=== PATIENT | female | born 1985 | race Caucasian/White ===

== ENCOUNTER 2017-08-25 13:07 | Emergency (ER) | payer OTHER ==
[2017-08-25 13:18] VITALS: TEMP 98.7
[2017-08-25] MEDS ORDERED: LORazepam 2 MG/ML INJ IV STA (13:19)
[2017-08-25 13:38] LABS: Basophils # (A) 0.1 k/uL (0-0.2); Basophils % (A) 1 %; CH 30.1; CHCM 32.8; Eosinophils # (A) 0.2 k/uL (0-0.7); Eosinophils % (A) 2 %; HCT 41.6 % (34.0-46.0); HDW 3.03; HGB 13.3 gm/dL (11.4-16.0); Luc # (Auto) 0.23; Luc % (Auto) 3; Lymphocytes # (A) 4.5 k/uL (1.0-4.8); Lymphocytes % (A) 47 %; MCH 29.4 pg (25.0-35.0); MCHC 31.8 g/dL (31.0-37.0); MCV 92.5 fL (80.0-100.0); Mean Platelet Volume 6.7; Monocytes # (A) 0.5 k/uL (0-1.0); Monocytes % (A) 5 %; Neutrophils # (A) 4.1 k/uL (1.3-7.7); Neutrophils % (A) 43 %; RDW 12.8 % (11.5-15.5); WBC 9.5 k/uL (3.8-10.6); WBC (Perox) 8.84
--- NOTE | 2017-08-25 13:49 | CT ---
EXAMINATION TYPE: CT brain cspine wo con DATE OF EXAM: 08/25/2017 COMPARISON: CT brain and cervical spine July 01, 2014 HISTORY: Seizure and fell injury with headache and neck pain CT DLP: 1451.2 mGycm. Automated Exposure Control for Dose Reduction was Utilized. TECHNIQUE: CT scan of the head and cervical spine are performed without contrast. FINDINGS: There is no acute intracranial hemorrhage, mass effect, or midline shift identified. The ventricles and sulci are within normal limits in size. El-white matter differentiation is maintain ed. The globes are intact and the visualized sinuses are clear. The calvarium is intact. Cervical spine is visualized in its entirety from C1 through upper thoracic levels and demonstrates s atisfactory alignment without evidence of acute fracture or dislocation. Prevertebral soft tissue ap pears within normal limits. The C1-C2 articulation is within normal limits on the coronal images. V ertebral body heights and disc space heights are maintained. Spinal canal is preserved. No significan t spurring is seen. Axial images are grossly unremarkable. Thyroid gland is felt within normal limits . Lung apices are clear. IMPRESSION: 1. There is no acute fracture or dislocation evident in the cervical spine. 2. No acute intracranial hemorrhage, mass effect, or midline shift is seen. No significant change from prior.
[2017-08-25 13:50] LABS: ALT 24 U/L (9-52); AST 22 U/L (14-36); Alkaline Phosphatase 55 U/L (38-126); Anion Gap 19 mmol/L; Blood Urea Nitrogen 10 mg/dL (7-17); Calcium 10.1 mg/dL (8.4-10.2); Carbon Dioxide 21 mmol/L (22-30); Chloride 104 mmol/L (98-107); Glucose 76 mg/dL (74-99); Non-African American GFR(MDRD) >60 (>60 ml/min/1.73 sqM); Potassium 4.1 mmol/L (3.5-5.1); Sodium 144 mmol/L (137-145); Total Bilirubin 0.3 mg/dL (0.2-1.3); Total Protein 7.5 g/dL (6.3-8.2)
[2017-08-25] MEDS ORDERED: HYDROmorphone 1 MG/ML 1 ML SYRINGE IVP STA ×2 (13:50→15:03)
--- NOTE | 2017-08-25 13:50 | ED ---
General Adult HPI - General Chief complaint: Seizure Stated complaint: SEIZURE Time Seen by Provider: 08/25/17 13:18 Source: patient, family, RN notes reviewed, old records reviewed Mode of arrival: ambulatory Limitations: no limitations - History of Present Illness Initial comments: Chief complaint and history of present illness a 32-year-old female with a history of seizures had a seizure while in the emergency room holding her child who was being seen for a medical problem. The patient's mother is also here. She states the last time show full seizure was 3 years ago. Otherwise other seizures have been more blank stares. The patient takes Lamictal. She is also on Xanax which she ran out of or 24 hours ago has not been able to get a refill because of the holiday. She suffers from posterior chronic stress disorder and often times, per mother, stress will induce a seizure. Patient had a tonic- clonic type seizure lasted less than 20 seconds which did fall backwards bumping her head on the wall. Patient had approximately 10 minutes post ictal episode. - Related Data Home Medications Medication Instructions Recorded Confirmed Propranolol [Inderal] 10 mg PO DAILY 02/21/16 08/25/17 lamoTRIgine [LaMICtal] 100 mg PO DAILY 02/21/16 08/25/17 ALPRAZolam [Xanax] 1 mg PO BID 08/20/17 08/25/17 Cetirizine HCl [Zyrtec] 10 mg PO DAILY 08/20/17 08/25/17 Desvenlafaxine Succinate [Pristiq] 50 mg PO DAILY 08/20/17 08/25/17 Fluticasone Nasal [place] [Flonase 1 spr EA NOSTRIL DAILY PRN 08/20/17 08/25/17 Nasal [place]] Ibuprofen [Motrin] 600 mg PO Q8HR PRN 08/20/17 08/25/17 Pregabalin [Lyrica] 75 mg PO BID 08/20/17 08/25/17 Varenicline [Chantix] 1 mg PO BID 08/20/17 08/25/17 Hydrocodone/Acetaminophen [[place] 2 tab PO Q6HR PRN 08/25/17 08/25/17 5-325] Previous Rx's Medication Instructions Recorded ALPRAZolam [Xanax] 1 mg PO BID #8 tab 08/25/17 Allergies Allergy/AdvReac Type Severity Reaction Status Date / Time acetaminophen [From Fioricet] Allergy Unknown Verified 08/25/17 13:28 adhesive Allergy Rash, Verified 08/25/17 13:28 PEELS SKIN OFF AND BLEEDS aripiprazole [From Abilify] Allergy SUICIDAL Verified 08/25/17 13:28 THOUGHTS, CUT HERSELF butalbital [From Fioricet] Allergy Unknown Verified 08/25/17 13:28 caffeine [From Fioricet] Allergy Unknown Verified 08/25/17 13:28 Sulfa (Sulfonamide Allergy Anaphylaxis Verified 08/25/17 13:28 Antibiotics) topiramate [From Topamax] Allergy Hallucinati Verified 08/25/17 13:28 ons Review of Systems ROS Statement: Those systems with pertinent positive or pertinent negative responses have been documented in the HPI. Now that the patient is more alert she reports she does have some head neck discomfort. When she fell she had her left lower leg forced onto the stretcher this will be x-rayed. Patient's denying chest pain shortness breath GI/ problems. Patient states she took her seizure medication when she was supposed to last time last night. She has been out of her Xanax for 24 hours. When fully alert patient states that she's been having pain in her left shoulder because she straightened it out the other day. She been taking [place] without relief. She states that pain, anxiety and fatigue increases her chance for having seizures like she had today. Requesting pain medication via the IV. Patient states she's had more than 3 rotator cuff surgeries on the left side. As medical problems significant for asthma, PTSD, TIA, GERD, GI bleed, renal disease, seizure disorder, skin disorder, the patient's surgeries include orthopedic surgery, tonsillectomy her surgeries on her left shoulder been repeated several times for rotator cuff. Per grandmother multiple cancers in the family. She is currently on Chantix for the last several days down to 2 cigarettes per day. Denying alcohol use. ROS Other: All systems not noted in ROS Statement are negative. Past Medical History Past Medical History: Asthma, CVA/TIA, GERD/Reflux, GI Bleed, Renal Disease, Seizure Disorder, Skin Disorder Additional Past Medical History / Comment(s): "VOMITING BLOOD". HAS PTSD, PSYCHOSOMATIC SEIZURE DISORDER; OCC EPISODE OF INCR HR & BLOOD PRESSURE, PROB R/ T ANXIETY. 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 EDEMA ZHANG LEGS. History of Any Multi-Drug Resistant Organisms: None Reported Past Surgical History: Orthopedic Surgery, Tonsillectomy Additional Past Surgical History / Comment(s): RECONSTRUCTION LT SHOULDER X3. Past Anesthesia/Blood Transfusion Reactions: Motion Sickness Past Psychological History: ADD/ADHD, Anxiety, Depression, PTSD Smoking Status: Current every day smoker Past Alcohol Use History: None Reported Past Drug Use History: None Reported General Exam - General Exam Comments Initial Comments: General: I was called to the room for medical emergency room for a visitor. The mother was holding her child who is being treated. She had a seizure. Grandmother managed to catch the baby before she fell. [place] did bump her head. She had a short seizure. Nurse was immediately at bedside and assisted the patient initially turned slightly blue but then started breathing on her own. She was placed on a stretcher. And within 10 minutes of post ictal phase had subsided. She was questioned and does admit some discomfort to her head and neck. Vital signs temperature 98.7 pulse 102 respiratory rate 18 pulse ox on percent room air blood pressure 130/75. Eye: Pupils are equal, round and reactive to light, extra-ocular movements are intact ; there is normal conjunctiva bilaterally. No signs of icterus. Ears, nose, mouth and throat: There are moist mucous membranes and no oral lesions. Neck: Mild neck discomfort. But she is moving it. Cardiovascular: Pulse taken soon after the seizure it was 102. She does take Inderal for rapid heart rate.. No murmur, rub or gallop is appreciated. Respiratory: Lungs are clear to auscultation, respirations are non-labored, breath sounds are equal. No wheezes, stridor, rales, or rhonchi. Gastrointestinal: Soft, non-distended, non-tender abdomen without masses or organomegaly noted. There is no rebound or guarding present. No CVA tenderness. Bowel sounds are unremarkable. Back: There is no tenderness to palpation in the midline. There is no obvious deformity. No rashes noted. Musculoskeletal: Normal ROM, no tenderness, There is no pedal edema. There is no calf tenderness or swelling. Sensation intact. Pulses equal bilaterally 2+. Patient does have some bruising on her lateral lower left leg where when she fell and was pushed under the stretcher. She was standing at bedside of the time. Patient's been taking [place] because of left shoulder pain she's had multiple surgeries for rotator cuff pathology on the left shoulder. States she injured it several days ago at home. Requesting pain medication for that. Range of motion is decreased secondary to pain. No bruises noted. Neurological: CN II-XII intact, There are no obvious motor or sensory deficits. Coordination appears grossly intact. Speech is normal. Skin: Skin is warm and dry and no rashes or lesions are noted. Psychiatric: Patient has been under great deal of stress lately. She did run out of her Xanax. She has posttraumatic stress disorder. Limitations: no limitations Course Vital Signs 08/25/17 08/25/17 13:11 13:43 Temperature 98.7 F Pulse Rate 102 H Respiratory 18 Rate Blood Pressure 130/75 O2 Sat by Pulse 100 100 Oximetry EKG Findings - EKG Comments: EKG Findings:: EKG was done reviewed and 1311 showing normal sinus rhythm. No acute ST elevation no ectopy no ischemic changes. Rate 93 WA interval is 1:30 QRS [address] Arnold Medical Decision Making - Medical Decision Making Medical decision making; because the patient stiffened up collapsed backwards then had a seizure is unknown if the patient had a vasovagal syncopal episode followed by contact seizure. Has been 3 years since she had her last seizure ct of the brain and cervical spine. Was performed. Entire report was reviewed. Final impression is #1 there is no acute fracture dislocation evident in the cervical spine. 2 no acute intracranial hemorrhage, mass effect , or midline shift seen. No significant change from prior. As read by Dr. kessler Labs show white count 9.5 hemoglobin 13 hematocrit 41 with a potassium 4.1. BUN 10 creatinine 0.9 to GFR greater than 60. Glucose 76. Lamictal level pending. Is remains alert since the incident. She will be given a prescription for Xanax 1 mg twice a day to be taken as directed. She was following up with her family doctor and orthopedic surgeon because of the left shoulder pain. Advised return emergency room as needed. No driving for 6 months. - Lab Data Result diagrams: 08/25/17 13:12 08/25/17 13:12 Lab Results 08/25/17 08/25/17 Range/Units 13:12 13:12 WBC 9.5 (3.8-10.6) k/uL RBC 4.50 (3.80-5.40) m/uL Hgb 13.3 (11.4-16.0) gm/dL Hct 41.6 (34.0-46.0) % MCV 92.5 (80.0-100.0) fL MCH 29.4 (25.0-35.0) pg MCHC 31.8 (31.0-37.0) g/dL RDW 12.8 (11.5-15.5) % Plt Count 337 (150-450) k/uL Neutrophils % 43 % Lymphocytes % 47 % Monocytes % 5 % Eosinophils % 2 % Basophils % 1 % Neutrophils # 4.1 (1.3-7.7) k/uL Lymphocytes # 4.5 (1.0-4.8) k/uL Monocytes # 0.5 (0-1.0) k/uL Eosinophils # 0.2 (0-0.7) k/uL Basophils # 0.1 (0-0.2) k/uL Sodium 144 (137-145) mmol/L Potassium 4.1 (3.5-5.1) mmol/L Chloride 104 (98-107) mmol/L Carbon Dioxide 21 L (22-30) mmol/L Anion Gap 19 mmol/L BUN 10 (7-17) mg/dL Creatinine 0.92 (0.52-1.04) mg/dL Est GFR (MDRD) Af Amer >60 (>60 ml/min/1.73 sqM) Est GFR (MDRD) Non-Af >60 (>60 ml/min/1.73 sqM) Glucose 76 (74-99) mg/dL Calcium 10.1 (8.4-10.2) mg/dL Total Bilirubin 0.3 (0.2-1.3) mg/dL AST 22 (14-36) U/L ALT 24 (9-52) U/L Alkaline Phosphatase 55 (38-126) U/L Total Protein 7.5 (6.3-8.2) g/dL Albumin 4.4 (3.5-5.0) g/dL Disposition Clinical Impression: Generalized seizure Disposition: HOME SELF-CARE Condition: Fair Instructions: Recurrent Seizures in Adults (ED) Additional Instructions: Follow-up with your family doctor, and neurologist. No driving for 6 months provided used a 3 seizures during that time. Continue with her home medications. Prescriptions: ALPRAZolam [Xanax] 1 mg PO BID #8 tab Referrals: Marco Irby DO [Primary Care Provider] - 1-2 days Time of Disposition: 14:54
[2017-08-25 15:02] VITALS: BP 110/64; PULSE 76; RESP 17
== END 2017-08-25 15:23 | disposition home or self-care (01) ==
LOC: EC 13:07
DX: G40.409 Other generalized epilepsy and epileptic syndromes, not intractable, without status epilepticus (principal); F32.9 Major depressive disorder, single episode, unspecified; F41.9 Anxiety disorder, unspecified; F17.200 Nicotine dependence, unspecified, uncomplicated; Z86.73 Personal history of transient ischemic attack (TIA), and cerebral infarction without residual deficits; Z88.6 Allergy status to analgesic agent; Z91.048 Other nonmedicinal substance allergy status; Z88.2 Allergy status to sulfonamides; Z88.8 Allergy status to other drugs, medicaments and biological substances; Z79.899 Other long term (current) drug therapy
CPT/HCPCS: 36415; 93005; 80053; 80175; 85025; 72125; 70450; 99285; 96374; 96376; 96375; J2060; J1170

== ENCOUNTER 2017-09-16 19:50 | Emergency (ER) | payer OTHER ==
[2017-09-16 19:56] VITALS: BP 149/76; PULSE 91; RESP 18; TEMP 99.1
[2017-09-16] MEDS ORDERED: HYDROmorphone 2 MG/ML 1 ML SYRINGE IM STA (20:17)
--- NOTE | 2017-09-16 20:43 | XR ---
EXAMINATION TYPE: XR shoulder complete LT DATE OF EXAM: 09/16/2017 COMPARISON: 08/20/2017 HISTORY: Left shoulder pain TECHNIQUE: 3 views FINDINGS: There are 2 pins in the humeral head. I see no fracture nor dislocation. There is widening of the AC joint space and 8 mm of malalignment. IMPRESSION: There is evidence of tear of the AC ligament. No fracture seen. No significant change com pared to old exam.
--- NOTE | 2017-09-16 20:56 | ED ---
Upper Extremity HPI - General Chief Complaint: Extremity Injury, Upper Stated Complaint: shoulder problems Time Seen by Provider: 09/16/17 20:00 Source: patient Mode of arrival: wheelchair Limitations: no limitations - History of Present Illness Initial Comments: 32-year-old male patient presents to the emergency department today for complaints of left shoulder pain. Patient has a history of chronic shoulder pain with known ligament and tendon tears. Patient states that she was getting up from the toilet today when she felt something shift and the shoulder. She states that her pain worsens significantly at that time. She states it feels like it is out of place. She denies any numbness or tingling to the arm. States she has little strength but this is chronic. She denies any falls or other injury. She denies any neck or back pain. Patient denies any headache, neck pain, back pain, chest pain, shortness of breath, dizziness, weakness, abdominal pain, nausea, vomiting, or difficulties with bowel movements or urination. - Related Data Home Medications Medication Instructions Recorded Confirmed Propranolol [Inderal] 10 mg PO DAILY 02/21/16 08/25/17 lamoTRIgine [LaMICtal] 100 mg PO DAILY 02/21/16 08/25/17 ALPRAZolam [Xanax] 1 mg PO BID 08/20/17 08/25/17 Cetirizine HCl [Zyrtec] 10 mg PO DAILY 08/20/17 08/25/17 Desvenlafaxine Succinate [Pristiq] 50 mg PO DAILY 08/20/17 08/25/17 Fluticasone Nasal [place] [Flonase 1 spr EA NOSTRIL DAILY PRN 08/20/17 08/25/17 Nasal [place]] Ibuprofen [Motrin] 600 mg PO Q8HR PRN 08/20/17 08/25/17 Pregabalin [Lyrica] 75 mg PO BID 08/20/17 08/25/17 Varenicline [Chantix] 1 mg PO BID 08/20/17 08/25/17 Hydrocodone/Acetaminophen [[place] 2 tab PO Q6HR PRN 08/25/17 08/25/17 5-325] Previous Rx's Medication Instructions Recorded ALPRAZolam [Xanax] 1 mg PO BID #8 tab 08/25/17 Hydrocodone/Acetaminophen [[place] 1 each PO Q6HR PRN #10 tab 08/25/17 5-325] Hydrocodone/Acetaminophen [[place] 1 tab PO Q6HR PRN #15 tab 09/16/17 5-325] Ibuprofen 800 mg PO TID PRN #30 tablet 09/16/17 Allergies Allergy/AdvReac Type Severity Reaction Status Date / Time acetaminophen [From Fioricet] Allergy Unknown Verified 09/16/17 19:55 adhesive Allergy Rash, Verified 09/16/17 19:55 PEELS SKIN OFF AND BLEEDS aripiprazole [From Abilify] Allergy SUICIDAL Verified 09/16/17 19:55 THOUGHTS, CUT HERSELF butalbital [From Fioricet] Allergy Unknown Verified 09/16/17 19:55 caffeine [From Fioricet] Allergy Unknown Verified 09/16/17 19:55 Sulfa (Sulfonamide Allergy Anaphylaxis Verified 09/16/17 19:55 Antibiotics) topiramate [From Topamax] Allergy Hallucinati Verified 09/16/17 19:55 ons Review of Systems ROS Statement: Those systems with pertinent positive or pertinent negative responses have been documented in the HPI. ROS Other: All systems not noted in ROS Statement are negative. Past Medical History Past Medical History: Asthma, CVA/TIA, GERD/Reflux, GI Bleed, Renal Disease, Seizure Disorder, Skin Disorder Additional Past Medical History / Comment(s): "VOMITING BLOOD". HAS PTSD, PSYCHOSOMATIC SEIZURE DISORDER; OCC EPISODE OF INCR HR & BLOOD PRESSURE, PROB R/ T ANXIETY. 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 EDEMA ZHANG LEGS. History of Any Multi-Drug Resistant Organisms: None Reported Past Surgical History: Orthopedic Surgery, Tonsillectomy Additional Past Surgical History / Comment(s): RECONSTRUCTION LT SHOULDER X3. Past Anesthesia/Blood Transfusion Reactions: Motion Sickness Past Psychological History: ADD/ADHD, Anxiety, Depression, PTSD Smoking Status: Current every day smoker Past Alcohol Use History: None Reported Past Drug Use History: None Reported General Exam Limitations: no limitations General appearance: alert, anxious (This is a well-developed, well-nourished adult female patient in mild distress related to pain. Vital signs upon presentation are temperature 99.1F, pulse 91, respirations 18, blood pressure 149/76, pulse ox 100% on room air.), in distress, other Eye exam: Present: normal appearance, PERRL, EOMI. Absent: scleral icterus, conjunctival injection, periorbital swelling ENT exam: Present: normal exam, normal oropharynx, mucous membranes moist Neck exam: Present: normal inspection. Absent: tenderness, meningismus, lymphadenopathy Respiratory exam: Present: normal lung sounds bilaterally. Absent: respiratory distress, wheezes, rales, rhonchi, stridor Cardiovascular Exam: Present: regular rate, normal rhythm, normal heart sounds. Absent: systolic murmur, diastolic murmur, rubs, gallop, clicks GI/Abdominal exam: Present: soft, normal bowel sounds. Absent: distended, tenderness, guarding, rebound, rigid Extremities exam: Present: normal inspection, full ROM, tenderness (Over the the AC joint, anterior and posterior shoulder.), normal capillary refill, other (Skin to the left upper extremity is pink, warm, and dry. Cap refills less than 3 seconds. Radial pulses 2+ and equal bilaterally. Strength in the left upper extremity is 3/5. Strength in the right upper extremity is 5/5.). Absent : pedal edema, joint swelling, calf tenderness Neurological exam: Present: alert, oriented X3, CN II-XII intact Psychiatric exam: Present: normal affect, normal mood Skin exam: Present: warm, dry, intact, normal color. Absent: rash Course Vital Signs 09/16/17 19:52 Temperature 99.1 F Pulse Rate 91 Respiratory 18 Rate Blood Pressure 149/76 O2 Sat by Pulse 100 Oximetry Medical Decision Making - Medical Decision Making 32-year-old female patient presented to the emergency department today for evaluation of left shoulder pain. Patient does have chronic shoulder pain however is having difficulty getting in to see her orthopedic physician. Physical examination does reveal decreased range of motion and decreased strength to the left upper extremity but these changes appear chronic. X-ray was obtained and showed acromioclavicular joint separation and probable AC ligament tears but are not changed from the previous exam. Patient was given an IM dose of Dilaudid here in the department. She'll be discharged home with a prescription for ibuprofen and [place]. She is instructed to follow-up with orthopedics as soon as possible and if she is unable to get in there she is instructed to obtain a second opinion. She is instructed to return here immediately for any new, worsening, or concerning symptoms. She verbalizes understanding and agrees with this plan. - Radiology Data Radiology results: report reviewed, image reviewed 3 views of the left shoulder obtained and showed 2 pins in humeral head. I see no fracture nor dislocation. There is widening of the AC joint space and 8 mm of malalignment. Impression by Dr. Tucker shows evidence of tear of the before meals ligament. No fracture seen. No significant change compared to old exam. Disposition Clinical Impression: Left shoulder pain Disposition: HOME SELF-CARE Condition: Good Instructions: Shoulder Pain (ED) Additional Instructions: Apply ice and heat to the shoulder as needed for discomfort. Take pain medications as directed. Follow-up with your neurologist as you have planned. Follow-up with orthopedics as you have planned. Return here immediately for any new, worsening, or concerning symptoms. Prescriptions: Hydrocodone/Acetaminophen [[place] 5-325] 1 tab PO Q6HR PRN #15 tab PRN Reason: Pain Ibuprofen 800 mg PO TID PRN #30 tablet PRN Reason: Pain Referrals: Marco Irby DO [Primary Care Provider] - 1-2 days Time of Disposition: 20:56
== END 2017-09-16 21:26 | disposition home or self-care (01) ==
LOC: EC 19:50
DX: M25.512 Pain in left shoulder (principal); G40.909 Epilepsy, unspecified, not intractable, without status epilepticus; F32.9 Major depressive disorder, single episode, unspecified; F41.9 Anxiety disorder, unspecified; F17.200 Nicotine dependence, unspecified, uncomplicated; Z98.890 Other specified postprocedural states; Z88.6 Allergy status to analgesic agent; Z91.048 Other nonmedicinal substance allergy status; Z88.2 Allergy status to sulfonamides; Z88.8 Allergy status to other drugs, medicaments and biological substances; Z79.899 Other long term (current) drug therapy
CPT/HCPCS: 73030; 99283; 96372; J1170

== ENCOUNTER → 2017-09-25 | Outpatient (CLI) | payer OTHER ==
--- NOTE | 2017-09-26 06:40 | MR ---
EXAMINATION TYPE: MR shoulder LT wo con DATE OF EXAM: 09/25/2017 COMPARISON: Left shoulder x-ray September 16, 2017 HISTORY: History of prior surgery 2008 presents with left shoulder pain after sprain injury. 3 differ ent surgeries with persistent pain and difficulty raising overhead and surgical failure per patient. TECHNIQUE: Multiplanar, multisequence imaging of the left shoulder is performed without contrast. FINDINGS: Rotator Cuff: There is extensive artifact from prior rotator cuff surgery at level of acromioclavicul ar joint and superolateral humeral head. Surgically repaired tendons are felt intact. The rotator cuf f muscle bulk is preserved. Subscapularis tendon is intact with slightly wavy contour seen on paracoronal images. Acromioclavicular Joint: Extensive artifact from prior surgery noted. Glenohumeral Joint: Small joint effusion. No significant spurring. Labrum: The labrum appears grossly intact given limitation of non-arthrogram study. Biceps Tendon: The long head of biceps is in normal location within bicipital groove. Bone marrow signal: No focal abnormal marrow signal is appreciated. Other: No additional significant abnormality is appreciated. IMPRESSION: Artifact from surgical change is present. Surgically repaired rotator cuff tendons are fe lt intact. No obvious abnormality is seen to account for patient's persistent symptoms.
== END | disposition home or self-care (01) ==
LOC: RADMRIMAIN 15:48
PROVIDERS: ATTEND Family Medicine
DX: S46.912S Strain of unspecified muscle, fascia and tendon at shoulder and upper arm level, left arm, sequela (principal); Z98.890 Other specified postprocedural states

== ENCOUNTER 2018-01-13 19:03 | Emergency (ER) | payer OTHER ==
[2018-01-13 19:15] VITALS: TEMP 99.7
[2018-01-13] MEDS ORDERED: METOCLOPRAMIDE 5 MG/ML 2 ML VIAL IVP STA (19:40)
[2018-01-13] MEDS ORDERED: SODIUM CHLORIDE 0.9% 2,000 ML IV ONE (19:40)
[2018-01-13] MEDS ORDERED: diphenhydrAMINE 50 MG/ML 1 ML VIAL IVP STA (19:40)
[2018-01-13] MEDS ORDERED: RX INFO: IV CONTRAST WAS GIVEN 1 EACH MISC MISCELLANE PRN (19:40)
[2018-01-13] MEDS ORDERED: LORazepam 2 MG/ML INJ IV STA (19:40)
--- NOTE | 2018-01-13 19:52 | ED ---
General Adult HPI - General Chief complaint: GI Bleed Stated complaint: abdominal pain/pancreas Time Seen by Provider: 01/13/18 19:29 Source: patient Mode of arrival: wheelchair Limitations: physical limitation - History of Present Illness Initial comments: Patient is a 32-year-old female presents with a chief complaint abdominal pain, hematemesis, hematochezia. Patient states visiting for 5 months however acutely worse over the last 3-5 days. She is here with her mother. The patient is acting hysterical on initial evaluation and is writhing around on the cart. she refuses to get undressed secondary to pain. Nurse, Tao Gaines, accompanied me in the room on initial evaluation. Staff reports that the patient initially was walking into the ED when the patient stated she was going to pass out. the patient was then lowered to the ground, and ultimately placed into a wheel chair. the patient claims that she injured her left shoulder when she fell. the mother further states that the patient was evaluated at an urgent care prior to arrival and was told her lipase was high (reported 123) and that they were told to come to the emergency department. 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 after re-directing, it was ascertained that the patient is having abdominal pain with hematemesis and hematochezia. - Related Data Home Medications Medication Instructions Recorded Confirmed lamoTRIgine [LaMICtal] 100 mg PO BID 02/21/16 01/13/18 Cetirizine HCl [Zyrtec] 10 mg PO DAILY 08/20/17 01/13/18 Fluticasone Nasal [place] [Flonase 1 spr EA NOSTRIL DAILY 08/20/17 01/13/18 Nasal [place]] ALPRAZolam [Xanax] 1 mg PO TID PRN 01/13/18 01/13/18 Desvenlafaxine Succinate [Pristiq] 100 mg PO DAILY 01/13/18 01/13/18 Gabapentin [Neurontin] 300 mg PO HS 01/13/18 01/13/18 Gabapentin [Neurontin] 600 mg PO QAM 01/13/18 01/13/18 Ibuprofen 800 mg PO BID PRN 01/13/18 01/13/18 Ondansetron HCl [Zofran] 8 mg PO Q8H PRN 01/13/18 01/13/18 Propranolol [Inderal] 40 mg PO DAILY 01/13/18 01/13/18 Rizatriptan Benzoate [Rizatriptan] 10 mg PO DAILY PRN 01/13/18 01/13/18 Topiramate [Topamax] 50 mg PO DAILY 01/13/18 01/13/18 Previous Rx's Medication Instructions Recorded Metoclopramide HCl [Reglan] 10 mg PO BID #30 tablet 01/13/18 Omeprazole [PriLOSEC] 20 mg PO AC-BID #30 cap 01/13/18 Allergies Allergy/AdvReac Type Severity Reaction Status Date / Time acetaminophen [From Fioricet] Allergy Unknown Verified 01/13/18 19:39 adhesive Allergy Rash, Verified 01/13/18 19:39 PEELS SKIN OFF AND BLEEDS aripiprazole [From Abilify] Allergy SUICIDAL Verified 01/13/18 19:39 THOUGHTS, CUT HERSELF butalbital [From Fioricet] Allergy Unknown Verified 01/13/18 19:39 caffeine [From Fioricet] Allergy Unknown Verified 01/13/18 19:39 divalproex sodium Allergy Unknown Verified 01/13/18 19:47 [From Depakote] Sulfa (Sulfonamide Allergy Anaphylaxis Verified 01/13/18 19:39 Antibiotics) Review of Systems ROS Statement: Those systems with pertinent positive or pertinent negative responses have been documented in the HPI. ROS Other: All systems not noted in ROS Statement are negative. Constitutional: Reports: weakness Gastrointestinal: Reports: vomiting, constipation, hematemesis, hematochezia Past Medical History Past Medical History: Asthma, CVA/TIA, GERD/Reflux, GI Bleed, Renal Disease, Seizure Disorder, Skin Disorder Additional Past Medical History / Comment(s): "VOMITING BLOOD". HAS PTSD, PSYCHOSOMATIC SEIZURE DISORDER; OCC EPISODE OF INCR HR & BLOOD PRESSURE, PROB R/ T ANXIETY. 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 EDEMA ZHANG LEGS. History of Any Multi-Drug Resistant Organisms: None Reported Past Surgical History: Orthopedic Surgery, Tonsillectomy Additional Past Surgical History / Comment(s): RECONSTRUCTION LT SHOULDER X3. Past Anesthesia/Blood Transfusion Reactions: Motion Sickness Past Psychological History: ADD/ADHD, Anxiety, Depression, PTSD Smoking Status: Current every day smoker Past Alcohol Use History: None Reported Past Drug Use History: None Reported General Exam - General Exam Comments Initial Comments: Patient is hysterical and uncooperative with exam. She takes persistently redirecting in order to obtain information and physical exam. Physical exam is severely limited secondary to patient's behavior. Limitations: physical limitation General appearance: alert, in distress Head exam: Present: atraumatic, normocephalic Eye exam: Present: normal appearance ENT exam: Present: other (not examined, patient would not let examiner palpate ) Neck exam: Present: normal inspection Respiratory exam: Present: normal lung sounds bilaterally. Absent: respiratory distress, wheezes Cardiovascular Exam: Present: tachycardia GI/Abdominal exam: Present: tenderness (patient has tenderness in all quadrants. she is uncooperative with exam. unable to get a reliable exam. ) Extremities exam: Present: other (patient will not allow exam. ) Neurological exam: Present: alert Psychiatric exam: Present: agitated Skin exam: Present: warm, dry, intact Course Vital Signs 01/13/18 01/13/18 19:11 22:00 Temperature 99.7 F H Pulse Rate 89 89 Respiratory 22 18 Rate Blood Pressure 137/102 118/78 O2 Sat by Pulse 99 99 Oximetry Medical Decision Making - Medical Decision Making Patient presents with a chief complaint of abdominal pain, hematemesis, and hematochezia. On initial evaluation, vital signs are stable, patient is in distress. Exam is very suspect given patient's behavior. Patient and her mother very inconsistent with history, they take continual redirecting. At this time, patient will be evaluated with basic abdominal labs, we will perform a rectal exam if patient allows. Patient will be sent for a computed tomography scan of the abdomen and pelvis contrast. Patient given Reglan, Benadryl, 1 mg of Ativan, and 2 L of IV fluid. 8:45 PM On reevaluation, patient is much more comfortable. Rectal exam shows no gross blood, stool is brown. Occult card sent. Currently pending CT evaluation of the abdomen and pelvis. 10:04 PM Lab evaluation of this patient is unremarkable. Lipase is within normal limits. Renal function and electrolytes are stable. X-ray of the shoulder shows no acute process. Computed tomography scan of the abdomen and pelvis with contrast shows no acute process. On reevaluation, patient is still comfortable. Patient stable for discharge. She'll be prescribed Reglan and Prilosec. Mother and patient were instructed to follow up with primary care in 1-2 days, return to the emergency department if symptoms worsen or change. They were also referred to a dispatch officer. - Lab Data Result diagrams: 01/13/18 20:00 01/13/18 20:00 Lab Results 01/13/18 01/13/18 01/13/18 Range/Units 20:00 20:00 20:17 WBC 6.2 (3.8-10.6) k/uL RBC 4.37 (3.80-5.40) m/uL Hgb 12.8 (11.4-16.0) gm/dL Hct 38.4 (34.0-46.0) % MCV 88.0 (80.0-100.0) fL MCH 29.4 (25.0-35.0) pg MCHC 33.4 (31.0-37.0) g/dL RDW 13.6 (11.5-15.5) % Plt Count 215 (150-450) k/uL Neutrophils % 63 % Lymphocytes % 31 % Monocytes % 4 % Eosinophils % 1 % Basophils % 0 % Neutrophils # 3.9 (1.3-7.7) k/uL Lymphocytes # 1.9 (1.0-4.8) k/uL Monocytes # 0.2 (0-1.0) k/uL Eosinophils # 0.1 (0-0.7) k/uL Basophils # 0.0 (0-0.2) k/uL Sodium 143 (137-145) mmol/L Potassium 3.9 (3.5-5.1) mmol/L Chloride 111 H (98-107) mmol/L Carbon Dioxide 22 (22-30) mmol/L Anion Gap 10 mmol/L BUN 13 (7-17) mg/dL Creatinine 0.93 (0.52-1.04) mg/dL Est GFR (CKD-EPI)AfAm >90 (>60 ml/min/1.73 sqM) Est GFR (CKD-EPI)NonAf 83 (>60 ml/min/1.73 sqM) Glucose 82 (74-99) mg/dL Calcium 9.4 (8.4-10.2) mg/dL Total Bilirubin 0.5 (0.2-1.3) mg/dL AST 20 (14-36) U/L ALT 28 (9-52) U/L Alkaline Phosphatase 49 (38-126) U/L Total Protein 6.1 L (6.3-8.2) g/dL Albumin 4.0 (3.5-5.0) g/dL Lipase 61 (23-300) U/L HCG, Qual Urine Color Light Yellow Urine Appearance Clear (Clear) Urine pH 7.5 (5.0-8.0) Ur Specific [place] 1.008 (1.001-1.035) Urine Protein Negative (Negative) Urine Glucose (UA) Negative (Negative) Urine Ketones Negative (Negative) Urine Blood Negative (Negative) Urine Nitrite Negative (Negative) Urine Bilirubin Negative (Negative) Urine Urobilinogen <2.0 (<2.0) mg/dL Ur Leukocyte Esterase Negative (Negative) Stool Occult Blood (Negative) Urine Opiates Screen Not Detected (NotDetected) Ur Oxycodone Screen Not Detected (NotDetected) Urine Methadone Screen Not Detected (NotDetected) Ur Propoxyphene Screen Not Detected (NotDetected) Ur Barbiturates Screen Not Detected (NotDetected) U Tricyclic Antidepress Not Detected (NotDetected) Ur Phencyclidine Scrn Not Detected (NotDetected) Ur Amphetamines Screen Detected H (NotDetected) U Methamphetamines Scrn Not Detected (NotDetected) U Benzodiazepines Scrn Detected H (NotDetected) Urine Cocaine Screen Not Detected (NotDetected) U Marijuana (THC) Screen Not Detected (NotDetected) 01/13/18 01/13/18 Range/Units 20:17 20:40 WBC (3.8-10.6) k/uL RBC (3.80-5.40) m/uL Hgb (11.4-16.0) gm/dL Hct (34.0-46.0) % MCV (80.0-100.0) fL MCH (25.0-35.0) pg MCHC (31.0-37.0) g/dL RDW (11.5-15.5) % Plt Count (150-450) k/uL Neutrophils % % Lymphocytes % % Monocytes % % Eosinophils % % Basophils % % Neutrophils # (1.3-7.7) k/uL Lymphocytes # (1.0-4.8) k/uL Monocytes # (0-1.0) k/uL Eosinophils # (0-0.7) k/uL Basophils # (0-0.2) k/uL Sodium (137-145) mmol/L Potassium (3.5-5.1) mmol/L Chloride (98-107) mmol/L Carbon Dioxide (22-30) mmol/L Anion Gap mmol/L BUN (7-17) mg/dL Creatinine (0.52-1.04) mg/dL Est GFR (CKD-EPI)AfAm (>60 ml/min/1.73 sqM) Est GFR (CKD-EPI)NonAf (>60 ml/min/1.73 sqM) Glucose (74-99) mg/dL Calcium (8.4-10.2) mg/dL Total Bilirubin (0.2-1.3) mg/dL AST (14-36) U/L ALT (9-52) U/L Alkaline Phosphatase (38-126) U/L Total Protein (6.3-8.2) g/dL Albumin (3.5-5.0) g/dL Lipase (23-300) U/L HCG, Qual Not Detected Urine Color Urine Appearance (Clear) Urine pH (5.0-8.0) Ur Specific [place] (1.001-1.035) Urine Protein (Negative) Urine Glucose (UA) (Negative) Urine Ketones (Negative) Urine Blood (Negative) Urine Nitrite (Negative) Urine Bilirubin (Negative) Urine Urobilinogen (<2.0) mg/dL Ur Leukocyte Esterase (Negative) Stool Occult Blood Negative (Negative) Urine Opiates Screen (NotDetected) Ur Oxycodone Screen (NotDetected) Urine Methadone Screen (NotDetected) Ur Propoxyphene Screen (NotDetected) Ur Barbiturates Screen (NotDetected) U Tricyclic Antidepress (NotDetected) Ur Phencyclidine Scrn (NotDetected) Ur Amphetamines Screen (NotDetected) U Methamphetamines Scrn (NotDetected) U Benzodiazepines Scrn (NotDetected) Urine Cocaine Screen (NotDetected) U Marijuana (THC) Screen (NotDetected) Disposition Clinical Impression: Abdominal pain Disposition: HOME SELF-CARE Condition: Good Instructions: Gastrointestinal Bleeding (ED), Abdominal Pain (ED) Prescriptions: Metoclopramide HCl [Reglan] 10 mg PO BID #30 tablet Omeprazole [PriLOSEC] 20 mg PO AC-BID #30 cap Is patient prescribed a controlled substance at d/c from ED?: No Referrals: Marco Irby DO [Primary Care Provider] - 1-2 days Jose Flores MD [STAFF PHYSICIAN] - 1-2 days
[2018-01-13 20:09] LABS: Basophils % (A) 0 %; Eosinophils # (A) 0.1 k/uL (0-0.7); Eosinophils % (A) 1 %; HCT 38.4 % (34.0-46.0); HGB 12.8 gm/dL (11.4-16.0); Lymphocytes # (A) 1.9 k/uL (1.0-4.8); Lymphocytes % (A) 31 %; MCH 29.4 pg (25.0-35.0); MCHC 33.4 g/dL (31.0-37.0); Mean Platelet Volume 7.7; Monocytes # (A) 0.2 k/uL (0-1.0); Monocytes % (A) 4 %; Neutrophils # (A) 3.9 k/uL (1.3-7.7); Neutrophils % (A) 63 %; Platelet Count 215 k/uL (150-450); RBC 4.37 m/uL (3.80-5.40); RDW 13.6 % (11.5-15.5); WBC 6.2 k/uL (3.8-10.6)
[2018-01-13 20:19] LABS: ALT 28 U/L (9-52); AST 20 U/L (14-36); Alkaline Phosphatase 49 U/L (38-126); Anion Gap 10 mmol/L; Blood Urea Nitrogen 13 mg/dL (7-17); Calcium 9.4 mg/dL (8.4-10.2); Carbon Dioxide 22 mmol/L (22-30); Chloride 111 mmol/L (98-107); Glucose 82 mg/dL (74-99); Lipase 61 U/L (23-300); Potassium 3.9 mmol/L (3.5-5.1); Sodium 143 mmol/L (137-145); Total Bilirubin 0.5 mg/dL (0.2-1.3); Total Protein 6.1 g/dL (6.3-8.2)
[2018-01-13 20:42] LABS: Appearance,Urine Clear (Clear); Bilirubin,Urine Negative (Negative); Blood,Urine Negative (Negative); Color,Urine Light Yellow; Glucose,Urine (UA) Negative (Negative); Ketones,Urine Negative (Negative); Leukocyte Esterase,Urine Negative (Negative); Nitrite,Urine Negative (Negative); PH, Urine 7.5 (5.0-8.0); Protein,Urine Negative (Negative); Specific Gravity,Urine 1.008 (1.001-1.035); Urobilinogen,Urine <2.0 mg/dL (<2.0)
[2018-01-13 20:51] LABS: Amphetamine Screen,Urine Detected (NotDetected); Barbiturate Screen,Urine Not Detected (NotDetected); Benzodiazepines Screen,Urine Detected (NotDetected); Cocaine Screen,Urine Not Detected (NotDetected); Methadone Screen, Urine Not Detected (NotDetected); Opiate Screen,Urine Not Detected (NotDetected); Oxycodone Screen, Urine Not Detected (NotDetected); Phencyclidine Screen,Urine Not Detected (NotDetected); Tricyclic Antidepressant,Urine Not Detected (NotDetected); Urn Cannabinoid Scrn Not Detected (NotDetected)
--- NOTE | 2018-01-13 21:34 | XR ---
EXAMINATION TYPE: XR shoulder limited LT DATE OF EXAM: 01/13/2018 CLINICAL HISTORY: History of 3 prior shoulder surgeries with persistent pain TECHNIQUE: Three views of the left shoulder are obtained. COMPARISON: None. FINDINGS: There is no acute fracture/dislocation evident in the left shoulder. Slight widening at ac romioclavicular joint is unchanged from prior study. 3 metallic anchors and humeral head are redemons trated from prior rotator cuff surgery. The visualized ribs are intact and unremarkable. IMPRESSION: There are chronic changes in the left shoulder. No significant change from prior study.
--- NOTE | 2018-01-13 21:37 | CT ---
EXAMINATION TYPE: CT abdomen pelvis w con DATE OF EXAM: 01/13/2018 HISTORY: BLOOD IN STOOL AND EMESIS CT DLP: 1289.3mGycm Automated Exposure Control for Dose Reduction was Utilized. CONTRAST: CT scan of the abdomen and pelvis is performed without oral but with IV Contrast, patient injected wi th 100 mL of Isovue 300. COMPARISON: None. FINDINGS: LUNG BASES: Dependent atelectasis is present in both bases. LIVER/GB: No significant abnormality is appreciated. PANCREAS: No significant abnormality is seen. SPLEEN: No significant abnormality is seen. ADRENALS: No significant abnormality is seen. KIDNEYS: No significant abnormality is seen. BOWEL: Evaluation of bowel is slightly suboptimal secondary to lack of enteric contrast. There is no suspicious small or large bowel dilatation. Normal-appearing appendix is seen from base of cecum in t he right pelvis. UTERUS/ADNEXA: Retroverted uterus is seen. Both ovaries are identified near axial image 70, and are f elt normal in size. There are few pelvic phleboliths incidentally noted. LYMPH NODES: No greater than 1cm abdominal or pelvic lymph nodes are appreciated. OSSEOUS STRUCTURES: 4 lumbar type vertebra incidentally noted. OTHER: No significant additional abnormality is seen. IMPRESSION: No bowel obstruction is seen. No significant acute finding is seen to account for patient 's clinical symptoms.
[2018-01-13 22:01] VITALS: BP 118/78; PULSE 89; RESP 18
== END 2018-01-13 22:33 | disposition home or self-care (01) ==
LOC: EC 19:03
DX: R10.84 Generalized abdominal pain (principal); J45.909 Unspecified asthma, uncomplicated; G40.909 Epilepsy, unspecified, not intractable, without status epilepticus; F90.9 Attention-deficit hyperactivity disorder, unspecified type; F41.9 Anxiety disorder, unspecified; F32.9 Major depressive disorder, single episode, unspecified; F43.10 Post-traumatic stress disorder, unspecified; F17.200 Nicotine dependence, unspecified, uncomplicated; Z86.73 Personal history of transient ischemic attack (TIA), and cerebral infarction without residual deficits; Z79.51 Long term (current) use of inhaled steroids; Z79.899 Other long term (current) drug therapy; Z88.6 Allergy status to analgesic agent; Z88.2 Allergy status to sulfonamides; Z88.8 Allergy status to other drugs, medicaments and biological substances; Z91.048 Other nonmedicinal substance allergy status
CPT/HCPCS: 36415; 80053; 83690; 85025; 82272; 81003; 84703; 80306; 73020; 74177; 99285; 96374; 96375 ×2; 96361 ×2; J2060; J1200; J2765; Q9967

== ENCOUNTER → 2018-04-23 | Outpatient (CLI) | payer OTHER ==
--- NOTE | 2018-04-24 07:25 | CT ---
EXAMINATION TYPE: CT abdomen pelvis w con DATE OF EXAM: 04/23/2018 HISTORY: Periumbilical abdominal pain. CT DLP: 1008.2mGycm Automated Exposure Control for Dose Reduction was Utilized. CONTRAST: CT scan of the abdomen and pelvis is performed with oral and with IV Contrast, patient injected with 100ml mL of Isovue 300. COMPARISON: CT abdomen pelvis January 13, 2018 FINDINGS: LUNG BASES: No significant abnormality is appreciated. LIVER/GB: No significant abnormality is appreciated. PANCREAS: No significant abnormality is seen. SPLEEN: No significant abnormality is seen. ADRENALS: No significant abnormality is seen. KIDNEYS: Extrarenal pelvis on the right is redemonstrated. BOWEL: The oral contrast does not reach terminal ileum level. Normal-appearing appendix is seen from cecum. There is no suspicious small or large bowel dilatation. UTERUS/ADNEXA: Retroverted uterus is seen. Trace free fluid pelvic cul-de-sac axial image 70 is noted . Both ovaries are identified. Within left ovary there is prominent 1.7 cm low dense lesion favoring prominent follicle LYMPH NODES: No greater than 1cm abdominal or pelvic lymph nodes are appreciated. OSSEOUS STRUCTURES: Only 4 lumbar-type vertebra are redemonstrated. OTHER: Anterior abdominal wall noted unremarkable. IMPRESSION: No significant new or acute finding is seen to account for patient's clinical symptoms.
== END | disposition home or self-care (01) ==
LOC: RADCTMAIN 17:35
PROVIDERS: ATTEND Family Medicine
DX: R10.33 Periumbilical pain (principal)
CPT/HCPCS: 74177; Q9967

== ENCOUNTER 2019-03-22 22:01 | Observation (INO) | payer OTHER ==
[2019-03-22] MEDS ORDERED: SODIUM CHLORIDE 0.9% 1,000 ML IV STA (22:23)
--- NOTE | 2019-03-22 22:26 | ED ---
Seizure HPI - General Chief Complaint: Seizure Stated Complaint: Seizure Time Seen by Provider: 03/22/19 22:23 Source: patient, EMS Mode of arrival: EMS - History of Present Illness Initial Comments: Isabella is a 33-year-old female with a history of seizure disorder who presents the emergency department today via EMS for evaluation of possible seizures at home. She reports she is just not been feeling well all day, she admits that she's been under a lot of emotional stress. Her mother states the patient has posterior manic stress disorder and stress can cause her seizures. Yesterday with a 9 year anniversary of the patient's sister's by suicide which is a very emotionally distressing time for the patient and her mother. She reports that throughout today the patient had reported not feeling well. This evening she walked out of the kitchen began holding her head and swaying stating that she felt that her vision was darkening. Her mother later on the couch and reports that the patient had a couple minutes of body shaking, she had no postictal period and immediately began attempting to talk to the mother however she then began to shake again. Mom reports at this time was more violent and erratic. The patient again did not have any postictal period, lather commonly for a few minutes and then approximately 5 minutes later had another episode of shaking at which time mother decided to contact EMS for transport to the hospital. Patient again had no postictal period. She had no tongue biting or loss of bowel or bladder continence. Mom reports that typically the patient has staring spells with her seizures and less frequently has tonic-clonic like activity. Patient reports that her entire body hurts from seizing and that she has a mild headache. She states that she was previously prescribed 3 antiepileptic medications but currently is taking only 1 because she does not have a good relationship with her neurologist and has not followed up in 8 months. Patient reports she's been out of 2 of her medications for approximately 6 months. Sara ent states she is currently taking Lamictal but does not know what other medication she has discontinued. - Related Data Home Medications Medication Instructions Recorded Confirmed lamoTRIgine [LaMICtal] 100 mg PO BID 02/21/16 01/13/18 Cetirizine HCl [Zyrtec] 10 mg PO DAILY 08/20/17 01/13/18 Fluticasone Nasal [place] [Flonase 1 spr EA NOSTRIL DAILY 08/20/17 01/13/18 Nasal [place]] ALPRAZolam [Xanax] 1 mg PO TID PRN 01/13/18 01/13/18 Desvenlafaxine Succinate [Pristiq] 100 mg PO DAILY 01/13/18 01/13/18 Gabapentin [Neurontin] 300 mg PO HS 01/13/18 01/13/18 Gabapentin [Neurontin] 600 mg PO QAM 01/13/18 01/13/18 Ibuprofen 800 mg PO BID PRN 01/13/18 01/13/18 Ondansetron HCl [Zofran] 8 mg PO Q8H PRN 01/13/18 01/13/18 Propranolol [Inderal] 40 mg PO DAILY 01/13/18 01/13/18 Rizatriptan Benzoate [Rizatriptan] 10 mg PO DAILY PRN 01/13/18 01/13/18 Topiramate [Topamax] 50 mg PO DAILY 01/13/18 01/13/18 Previous Rx's Medication Instructions Recorded Metoclopramide HCl [Reglan] 10 mg PO BID #30 tablet 01/13/18 Omeprazole [PriLOSEC] 20 mg PO AC-BID #30 cap 01/13/18 Allergies Allergy/AdvReac Type Severity Reaction Status Date / Time acetaminophen [From Fioricet] Allergy Unknown Verified 03/22/19 22:43 adhesive Allergy Rash, Verified 03/22/19 22:43 PEELS SKIN OFF AND BLEEDS aripiprazole [From Abilify] Allergy SUICIDAL Verified 03/22/19 22:43 THOUGHTS, CUT HERSELF butalbital [From Fioricet] Allergy Unknown Verified 03/22/19 22:43 caffeine [From Fioricet] Allergy Unknown Verified 03/22/19 22:43 divalproex sodium Allergy Unknown Verified 03/22/19 22:43 [From Depakote] Sulfa (Sulfonamide Allergy Anaphylaxis Verified 03/22/19 22:43 Antibiotics) Review of Systems ROS Statement: Those systems with pertinent positive or pertinent negative responses have been documented in the HPI. ROS Other: All systems not noted in ROS Statement are negative. Past Medical History Past Medical History: Asthma, CVA/TIA, GERD/Reflux, GI Bleed, Renal Disease, Seizure Disorder, Skin Disorder Additional Past Medical History / Comment(s): "VOMITING BLOOD". HAS PTSD, PSYCHOSOMATIC SEIZURE DISORDER; OCC EPISODE OF INCR HR & BLOOD PRESSURE, PROB R/T ANXIETY. 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 EDEMA ZHANG LEGS. History of Any Multi-Drug Resistant Organisms: None Reported Past Surgical History: Orthopedic Surgery, Tonsillectomy Additional Past Surgical History / Comment(s): RECONSTRUCTION LT SHOULDER X3. Past Anesthesia/Blood Transfusion Reactions: Motion Sickness Past Psychological History: ADD/ADHD, Anxiety, Depression, PTSD Smoking Status: Former smoker Past Alcohol Use History: None Reported Past Drug Use History: None Reported General Exam - General Exam Comments Initial Comments: Physical Exam GENERAL: Patient is well-developed and well-nourished. Patient is nontoxic and well- hydrated and is in no distress. HENT: Normocephalic, Atraumatic. EYES: PERRL, EOMI PULMONARY: Unlabored respirations. No audible rales rhonchi or wheezing was noted. CARDIOVASCULAR: There is a regular rate and rhythm without any murmurs gallops or rubs. ABDOMEN: Soft and nontender with normal bowel sounds. SKIN: Skin is clear with no lesions or rashes and otherwise unremarkable. : Deferred NEUROLOGIC: Patient is alert and oriented x3. Moving all extremities spontaneously MUSCULOSKELETAL: Normal extremities with adequate strength and full range of motion. No lower extremity swelling or edema. No calf tenderness. PSYCHIATRIC: Normal psychiatric evaluation Course Vital Signs 03/22/19 03/23/19 22:02 06:33 Temperature 99.6 F 98.7 F Pulse Rate 106 H 77 Respiratory 18 18 Rate Blood Pressure 132/86 99/64 O2 Sat by Pulse 100 100 Oximetry Medical Decision Making - Medical Decision Making Patient was seen and evaluated, history is obtained from the patient and review of medical record Labs and imaging were ordered EKG was obtained at 2252, rate is 84 rhythm is sinus tach normal axis and normal intervals, MO 124, QRS 88, QTC is 432 there are no acute ST elevations or depressions is no evidence of acute ischemia, infarction or arrhythmia on this EKG. Labs were unremarkable. At this time patient will be admitted for evaluation by neurology due to recurrent seizures. Patient no seizure-like activity while in the emergency department. - Lab Data Result diagrams: 03/22/19 22:48 03/22/19 22:48 Lab Results 03/22/19 03/22/19 Range/Units 22:48 22:48 WBC 6.1 (3.8-10.6) k/uL RBC 4.04 (3.80-5.40) m/uL Hgb 11.5 (11.4-16.0) gm/dL Hct 35.9 (34.0-46.0) % MCV 88.9 (80.0-100.0) fL MCH 28.4 (25.0-35.0) pg MCHC 32.0 (31.0-37.0) g/dL RDW 14.0 (11.5-15.5) % Plt Count 192 (150-450) k/uL Neutrophils % 67 % Lymphocytes % 26 % Monocytes % 5 % Eosinophils % 1 % Basophils % 0 % Neutrophils # 4.0 (1.3-7.7) k/uL Lymphocytes # 1.6 (1.0-4.8) k/uL Monocytes # 0.3 (0-1.0) k/uL Eosinophils # 0.1 (0-0.7) k/uL Basophils # 0.0 (0-0.2) k/uL Sodium 141 (137-145) mmol/L Potassium 3.6 (3.5-5.1) mmol/L Chloride 106 (98-107) mmol/L Carbon Dioxide 25 (22-30) mmol/L Anion Gap 10 mmol/L BUN 11 (7-17) mg/dL Creatinine 0.85 (0.52-1.04) mg/dL Est GFR (CKD-EPI)AfAm >90 (>60 ml/min/1.73 sqM) Est GFR (CKD-EPI)NonAf >90 (>60 ml/min/1.73 sqM) Glucose 88 (74-99) mg/dL Calcium 9.5 (8.4-10.2) mg/dL Total Bilirubin 0.4 (0.2-1.3) mg/dL AST 17 (14-36) U/L ALT 15 (9-52) U/L Alkaline Phosphatase 48 (38-126) U/L Total Protein 6.3 (6.3-8.2) g/dL Albumin 4.2 (3.5-5.0) g/dL Disposition Clinical Impression: Epileptic seizure Disposition: ADMITTED IP TO THIS HOSP Condition: Stable Is patient prescribed a controlled substance at d/c from ED?: No
[2019-03-22 23:06] LABS: Basophils % (A) 0 %; Eosinophils # (A) 0.1 k/uL (0-0.7); Eosinophils % (A) 1 %; HCT 35.9 % (34.0-46.0); HGB 11.5 gm/dL (11.4-16.0); Lymphocytes # (A) 1.6 k/uL (1.0-4.8); Lymphocytes % (A) 26 %; MCH 28.4 pg (25.0-35.0); MCV 88.9 fL (80.0-100.0); Monocytes # (A) 0.3 k/uL (0-1.0); Monocytes % (A) 5 %; Neutrophils % (A) 67 %; Platelet Count 192 k/uL (150-450); RBC 4.04 m/uL (3.80-5.40); WBC 6.1 k/uL (3.8-10.6)
[2019-03-22 23:11] LABS: ALT 15 U/L (9-52); AST 17 U/L (14-36); African American GFR (CKD) >90 (>60 ml/min/1.73 sqM); Albumin 4.2 g/dL (3.5-5.0); Alkaline Phosphatase 48 U/L (38-126); Anion Gap 10 mmol/L; Blood Urea Nitrogen 11 mg/dL (7-17); Calcium 9.5 mg/dL (8.4-10.2); Carbon Dioxide 25 mmol/L (22-30); Chloride 106 mmol/L (98-107); Glucose 88 mg/dL (74-99); Potassium 3.6 mmol/L (3.5-5.1); Sodium 141 mmol/L (137-145); Total Bilirubin 0.4 mg/dL (0.2-1.3); Total Protein 6.3 g/dL (6.3-8.2)
[2019-03-22] MEDS ORDERED: NALOXONE 0.4 MG/ML 1 ML VIAL IV PRN (23:57)
[2019-03-23] MEDS ORDERED: SUMAtriptan SUCCINATE 25 MG TAB PO STA (01:03)
[2019-03-23 01:09] LABS: Appearance,Urine Clear (Clear); Bilirubin,Urine Negative (Negative); Blood,Urine Negative (Negative); Color,Urine Light Yellow; Glucose,Urine (UA) Negative (Negative); Ketones,Urine Negative (Negative); Leukocyte Esterase,Urine Negative (Negative); Nitrite,Urine Negative (Negative); PH, Urine 6.5 (5.0-8.0); Protein,Urine Negative (Negative); Specific Gravity,Urine 1.004 (1.001-1.035); Urobilinogen,Urine <2.0 mg/dL (<2.0)
[2019-03-23 01:17] LABS: Amphetamine Screen,Urine Not Detected (NotDetected); Barbiturate Screen,Urine Not Detected (NotDetected); Benzodiazepines Screen,Urine Detected (NotDetected); Cocaine Screen,Urine Not Detected (NotDetected); Methadone Screen, Urine Not Detected (NotDetected); Opiate Screen,Urine Not Detected (NotDetected); Oxycodone Screen, Urine Not Detected (NotDetected); Phencyclidine Screen,Urine Not Detected (NotDetected); Tricyclic Antidepressant,Urine Not Detected (NotDetected); Urn Cannabinoid Scrn Not Detected (NotDetected)
[2019-03-23] MEDS: SODIUM CHLORIDE 0.9% 1,000 ML IV SCH ×2 (01:33→21:24)
--- NOTE | 2019-03-23 09:03 | P.CNNES ---
History of Present Illness Consult date: 03/23/19 Requesting physician: Mirian Marie Reason for Consult: Seizure Chief complaint: Seizure History of Present Illness: 33 RH female h/o anxiety, migraine and seizure having gone to multiple neur ologists and currently ISO new one previously on LTG and TPM for seizure and migraine prophylaxis has not been able to get her TPM refilled for 3 months also c/o migraine that may lead to a seizure consisting of whole body jerking and post-ictal phase according to mother who provides most of the history at the bedside. Trigger of her seizure is emotional stress. She has been undergoing significant emotional stress lately. Per ER records, last evening patient walked out of the kitchen began holding her head and swaying stating that she felt that her vision was darkening. Her mother reports she had a couple minutes of body shaking, she had no postictal period and immediately began attempting to talk to the mother however she then began to shake again. Mom reports at this time was more violent and erratic. The patient again did not have any postictal period, lather commonly for a few minutes and then approximately 5 minutes later had another episode of shaking at which time mother decided to contact EMS for transport to the hospital. Patient again had no postictal period. She had no tongue biting or loss of bowel or bladder continence. Mom reports that typically the patient has staring spells with her seizures and less frequently has tonic-clonic like activity. Mother admits to giving her daughter her personal Xanax under the tongue to treat her seizures. Review of Systems I have performed a 14-point organ ROS with patient and pertinents are as per HPI. Past Medical History Past Medical History: Asthma, CVA/TIA, GERD/Reflux, GI Bleed, Renal Disease, Seizure Disorder, Skin Disorder Additional Past Medical History / Comment(s): "VOMITING BLOOD". HAS PTSD, PSYCHOSOMATIC SEIZURE DISORDER; OCC EPISODE OF INCR HR & BLOOD PRESSURE, PROB R/T ANXIETY. 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 EDEMA ZHANG LEGS. History of Any Multi-Drug Resistant Organisms: None Reported Past Surgical History: Orthopedic Surgery, Tonsillectomy Additional Past Surgical History / Comment(s): RECONSTRUCTION LT SHOULDER X3. Past Anesthesia/Blood Transfusion Reactions: Motion Sickness Past Psychological History: ADD/ADHD, Anxiety, Depression, PTSD Smoking Status: Former smoker Past Alcohol Use History: None Reported Past Drug Use History: None Reported Medications and Allergies Home Medications Medication Instructions Recorded Confirmed Type lamoTRIgine [LaMICtal] 100 mg PO BID 02/21/16 01/13/18 History Cetirizine HCl [Zyrtec] 10 mg PO DAILY 08/20/17 01/13/18 History Fluticasone Nasal [place] [Flonase 1 spr EA NOSTRIL DAILY 08/20/17 01/13/18 History Nasal [place]] ALPRAZolam [Xanax] 1 mg PO TID PRN 01/13/18 01/13/18 History Desvenlafaxine Succinate [Pristiq] 100 mg PO DAILY 01/13/18 01/13/18 History Gabapentin [Neurontin] 300 mg PO HS 01/13/18 01/13/18 History Gabapentin [Neurontin] 600 mg PO QAM 01/13/18 01/13/18 History Ibuprofen 800 mg PO BID PRN 01/13/18 01/13/18 History Metoclopramide HCl [Reglan] 10 mg PO BID #30 tablet 01/13/18 Rx Omeprazole [PriLOSEC] 20 mg PO AC-BID #30 cap 01/13/18 Rx Ondansetron HCl [Zofran] 8 mg PO Q8H PRN 01/13/18 01/13/18 History Propranolol [Inderal] 40 mg PO DAILY 01/13/18 01/13/18 History Rizatriptan Benzoate [Rizatriptan] 10 mg PO DAILY PRN 01/13/18 01/13/18 History Topiramate [Topamax] 50 mg PO DAILY 01/13/18 01/13/18 History Allergies Allergy/AdvReac Type Severity Reaction Status Date / Time acetaminophen [From Fioricet] Allergy Unknown Verified 03/22/19 22:43 adhesive Allergy Rash, Verified 03/22/19 22:43 PEELS SKIN OFF AND BLEEDS aripiprazole [From Abilify] Allergy SUICIDAL Verified 03/22/19 22:43 THOUGHTS, CUT HERSELF butalbital [From Fioricet] Allergy Unknown Verified 03/22/19 22:43 caffeine [From Fioricet] Allergy Unknown Verified 03/22/19 22:43 divalproex sodium Allergy Unknown Verified 03/22/19 22:43 [From Depakote] Sulfa (Sulfonamide Allergy Anaphylaxis Verified 03/22/19 22:43 Antibiotics) Physical Examination - Vital Signs Vital Signs: Vital Signs Temp Pulse Resp BP Pulse Ox 03/23/19 06:33 98.7 F 77 18 99/64 100 03/22/19 22:02 99.6 F 106 H 18 132/86 100 Intake and Output 03/22/19 03/23/19 03/23/19 22:59 06:59 14:59 Other: Weight 77.111 kg Gen NAD Pleasant and cooperative HEENT NCAT Sclera without icterus O/P clear Neck Supple No carotid bruit Cor RRR no m/r/g Lungs CTAB Abd Soft NTND +BS Ext Warm to touch No edema Neuro MS A+Ox4 Normal fluency Able to follow all commands CN PERRL VFF no APD EOMI no nystagmus or DAE No facial asymmetry Masseter's symmetric Hearing intact to normal voice bilaterally Speech not dysarthric Equal elevation of palate Tongue midline Sym shrug and SCM bilaterally Motor Normal bulk/tone No pronator or tremors Strength 5/5 sym throughout Sens Intact to LT x4 No neglect or extinction Coord No dysmetria on FTN bilaterally DTRs 2+/4 sym throughout Toes downgoing bilaterally No clonus at achilles Gait Deferred Results - Laboratory Findings CBC and BMP: 03/22/19 22:48 03/22/19 22:48 Abnormal Lab Findings: Abnormal Labs 03/23/19 00:52 U Benzodiazepines Scrn Detected H Assessment and Plan Assessment: Seizure, triggered by emotional stress, with other elements in the history that 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 Same common sense applies to engaging in any activity that may endanger patient and/or others should she have recurrent seizure activity. Patient and mother voice understanding -Have patient mention name of outpatient neurologist of her choice so primary team may include in discharge so she may make appointment to establish care -d/w patient/mother at length. All questions answered. Thank you for this consultation. Please call with ?. Time with Patient: Greater than 30 (Time spent in direct patient care, greater than 50% of which was spent in [id number] counseling and coordination of care: 70 minutes.)
[2019-03-23] MEDS: TOPIRAMATE 25 MG TAB PO SCH (10:52)
[2019-03-23] MEDS: lamoTRIgine 100 MG TAB PO SCH ×2 (10:52→21:23)
--- NOTE | 2019-03-23 13:38 | EEG ---
ELECTROENCEPHALOGRAM REPORT DATE OF TESTING: March 23, 2019 CLINICAL PROBLEM: History of anxiety, migraine and seizures who had increased breakthrough seizure like activity due to emotional stress. EEG was requested to rule out epileptiform activity. TYPE OF RECORDING: Bedside tracing using the 10-20 international electrode placement system. No sedation was given prior to the beginning of this recording. FINDINGS: The background of this tracing is marked with episodic EMG and noise artifacts that compromise the quality of this tracing. There is appearance of a posterior symmetric alpha rhythm that attenuates on eye opening and returns upon eye closure. Photic stimulation elicits a symmetric driving response. Hyperventilation is not performed in this recording. As the tracing progresses, there is slowing down of the background into the theta range. No definitive sleep architecture is seen. There is no background asymmetry, ictal or interictal patterns appreciated. IMPRESSION: This is a normal awake/drowsy electroencephalogram without background asymmetry or epileptiform discharges. Clinical correlation is advised. LOIDA / ANNA: [id number] / ZOEY
[2019-03-23] MEDS: HYDROcodone/APAP 5-325MG 1 EACH TAB PO PRN ×2 (18:18→23:11)
[2019-03-23] MEDS ORDERED: MELATONIN 5 MG TABLET PO SCH (21:30)
[2019-03-23] MEDS: PROPRANOLOL 40 MG TAB PO SCH (21:51)
--- NOTE | 2019-03-23 23:34 | P.HPIM ---
History of Present Illness H&P Date: 03/23/19 Chief Complaint: Seizures Patient is a 31-year-old female with a known history of seizure disorder, migraine headache, CVA/TIA with no residual weakness, GERD, paroxysmal atrial tachycardia was brought to the hospital by her mother due to multiple episodes of seizures at home. Patient is on lamotrigine and topiramate and has not been able to get her prescriptions refilled. Patient denied seizures at home and was having generalized weakness. Patient was having jerking movements while she was sitting on the sofa. Yesterday evening patient was sitting at the dinner table and was not feeling hungry and when to sit up. Since then patient was having 4 episodes of seizures and was brought to the hospital. Patient had multiple admissions for seizures Source and also intubated previously. Patient's mom is at bedside and provided most of the history. Denied any bladder or bowel incontinence. No tongue biting. Patient usually has staring spells with her seizures. Apparently patient has been upset emotionally for the past 1 week due to loss of her family member. EKG showed normal sinus rhythm EEG was done which showed normal electroencephalogram without background asymmetry or epileptiform discharges. Currently patient is awake alert and oriented 3. Still complains of generalized body aches and weakness. Review of Systems Constitutional: Patient denies any fever or chills . Generalized weakness and body aches. Cardiovascular: Patient denies any chest pain or short of breath no palpitations. Respiratory: patient denied any cough is from production. No shortness of breath Neurologic: Patient denied any numbness or tingling headache. Musculoskeletal: Patient denies any complaints of joint swelling or deformity. Skin: Negative Psychiatric: Negative Endocrine: No heat or cold intolerance. No recent weight gain. Genitourinary: No dysuria or hematuria. All other 14 point ROS negative except the above Past Medical History Past Medical History: Asthma, CVA/TIA, Fibromyalgia, GERD/Reflux, GI Bleed, Renal Disease, Seizure Disorder, Skin Disorder Additional Past Medical History / Comment(s): "VOMITING BLOOD". HAS PTSD, PS YCHOSOMATIC SEIZURE DISORDER; OCC EPISODE OF INCR HR & BLOOD PRESSURE, PROB R/T ANXIETY. 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 migraines History of Any Multi-Drug Resistant Organisms: None Reported Past Surgical History: Orthopedic Surgery, Tonsillectomy Additional Past Surgical History / Comment(s): RECONSTRUCTION LT SHOULDER X3. Past Anesthesia/Blood Transfusion Reactions: Motion Sickness Past Psychological History: ADD/ADHD, Anxiety, Depression, PTSD Additional Psychological History / Comment(s): PSYCHOSOMATIC SEIZURE DISCORDER. Smoking Status: Former smoker Past Alcohol Use History: None Reported Past Drug Use History: None Reported - Past Family History Mother Family Medical History: Asthma, Congestive Heart Failure (CHF), COPD, GERD/Reflux Additional Family Medical History / Comment(s): PTSD, depression Medications and Allergies Home Medications Medication Instructions Recorded Confirmed Type Cetirizine HCl [Zyrtec] 10 mg PO DAILY 08/20/17 03/23/19 History Fluticasone Nasal [place] [Flonase 2 spr EA NOSTRIL DAILY 08/20/17 03/23/19 History Nasal [place]] Desvenlafaxine Succinate [Pristiq] 100 mg PO DAILY 01/13/18 03/23/19 History Propranolol [Inderal] 40 mg PO DAILY 01/13/18 03/23/19 History Rizatriptan Benzoate [Rizatriptan] 10 mg PO DAILY PRN 01/13/18 03/23/19 History Topiramate [Topamax] 50 mg PO DAILY 01/13/18 03/23/19 History Omeprazole 40 mg PO DAILY 03/23/19 03/23/19 History Pnv No.95/Ferrous Fum/Folic AC 1 tab PO DAILY 03/23/19 03/23/19 History [ Multivitamin Tablet] lamoTRIgine [LaMICtal] 150 mg PO BID 03/23/19 03/23/19 History Allergies Allergy/AdvReac Type Severity Reaction Status Date / Time adhesive Allergy Rash, Verified 03/22/19 22:43 PEELS SKIN OFF AND BLEEDS aripiprazole [From Abilify] Allergy SUICIDAL Verified 03/22/19 22:43 THOUGHTS, CUT HERSELF divalproex sodium Allergy Unknown Verified 03/22/19 22:43 [From Depakote] Sulfa (Sulfonamide Allergy Anaphylaxis Verified 03/22/19 22:43 Antibiotics) Physical Exam Vitals: Vital Signs Temp Pulse Pulse Resp BP BP BP 03/23/19 13:55 98.3 F 76 16 94/53 03/23/19 09:19 99.0 F 80 20 109/77 03/23/19 06:33 98.7 F 77 18 99/64 03/22/19 22:02 99.6 F 106 H 18 132/86 Pulse Ox 03/23/19 13:55 98 03/23/19 09:19 97 03/23/19 06:33 100 03/22/19 22:02 100 Intake and Output 03/23/19 03/23/19 03/23/19 06:59 14:59 22:59 Other: Voiding Method Toilet # Voids 2 PHYSICAL EXAMINATION: Patient is lying in the bed comfortably, no acute distress, awake alert and oriented.. HEENT: Normocephalic. Neck is supple. Pupils reactive. Nostrils clear. Oral cavity is moist. Ears reveal no drainage. Neck reveals no JVD, carotid bruits, or thyromegaly. CHEST EXAMINATION: Trachea is central. Symmetrical expansion. Lung puentes clear to auscultation and percussion. CARDIAC: Normal S1, S2 with no gallops. No murmurs ABDOMEN: Soft. Bowel sounds normal. No organomegaly. No abdominal bruits. Extremities: reveal no edema. No clubbing or cyanosis Neurologically awake, alert, oriented x3 with well-coordinated movements. No focal deficits noted Skin: No rash or skin lesions. Psychiatric: Coperative. Nonsuicidal Musculoskeletal: No joint swelling or deformity. Normal range of motion. Results CBC & Chem 7: 03/22/19 22:48 03/22/19 22:48 Labs: Abnormal Lab Results - Last 24 Hours (Table) 03/23/19 Range/Units 00:52 U Benzodiazepines Scrn Detected H (NotDetected) Thrombosis Risk Factor Assmnt - DVT/VTE Prophylaxis DVT/VTE Prophylaxis: Pharmacologic Prophylaxis ordered - Choose All That Apply Any of the Below Risk Factors Present?: No Other Risk Factors: No Other congenital or acquired thrombophilia - If yes, enter type in comment: No Thrombosis Risk Factor Assessment Level: Very Low Risk Assessment and Plan Assessment: Generalized tonic-clonic seizures likely triggered by emotional stress. Migraine headaches. Patient is out of prescription for Topamax. Paroxysmal atrial tachycardia. On follow-up with cardiology Dr. Luong. 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 Neurology is following. Continue with seizure precautions and fall precautions. Patient is still complaining of generalized weakness. Continue with home medications and follow closely. EEG was done which showed no epileptiform discharges. Further recommendations based on the clinical course. Discussed with her mother and the patient in detail at bedside. Time with Patient: Greater than 30
[2019-03-24] MEDS: SODIUM CHLORIDE 0.9% 1,000 ML IV SCH ×2 (05:13→15:34)
[2019-03-24 07:45] VITALS: TEMP 98.2
[2019-03-24] MEDS: lamoTRIgine 100 MG TAB PO SCH (08:43)
[2019-03-24] MEDS: PROPRANOLOL 40 MG TAB PO SCH (08:43)
[2019-03-24] MEDS: TOPIRAMATE 25 MG TAB PO SCH (08:44)
[2019-03-24] MEDS: HYDROcodone/APAP 5-325MG 1 EACH TAB PO PRN ×2 (08:50→15:33)
--- NOTE | 2019-03-24 09:57 | P.PN ---
Subjective Progress Note Date: 03/24/19 Principal diagnosis: Seizures, epileptic vs PNES Migraine Anxiety/psychosocial stressors No acute events O/N. No seizure. Still has migraine. Imitrex has helped. Asks for an outpatient Rx along with topiramate. EEG yesterday. Ready to go home. No new neuro c/o. Objective - Vital Signs Vital signs: Vital Signs Temp 98.2 F 03/24/19 07:44 Pulse 64 03/24/19 08:00 Resp 17 03/24/19 07:44 BP 96/62 03/24/19 07:44 Pulse Ox 98 03/24/19 07:44 Intake & Output 03/23/19 03/24/19 03/24/19 18:59 06:59 18:59 Other: Voiding Method Toilet Toilet # Voids 1 2 # Bowel Movements 1 - Exam Gen NAD Pleasant and cooperative MS A+Ox4 Normal fluency Able to follow all commands CN PERRL VFF no APD EOMI no nystagmus or DAE No facial asymmetry Masseter's symmetric Hearing intact to normal voice bilaterally Speech not dysarthric Equal elevation of palate Tongue midline Sym shrug and SCM bilaterally Motor Normal bulk/tone No pronator or tremors Strength 5/5 sym throughout Sens Intact to LT x4 No neglect or extinction Coord No dysmetria on FTN bilaterally DTRs 2+/4 sym throughout Toes downgoing bilaterally No clonus at achilles Gait Deferred - Labs CBC & Chem 7: 03/22/19 22:48 03/22/19 22:48 - Imaging and Cardiology EEG 03/23/19. Normal. Assessment and Plan Assessment: Seizure, triggered by emotional stress, with other elements in the history that may suggest PNES Common migraine Psychosocial stressors/anxiety Plan: -EEG unrevealing -Restarted TPM 25mg po qd -Continue LTG 200mg po bid -Patient would like a prescription of sumatriptan on discharge. Recommend Rx Sumatriptan 50mg tablet one tab po prn H/A may repeat one after 2 hours and not to exceed 2 tabs/24 hours, #9, no refill -Seizure precautions -Patient states that she does not drive. Same common sense applies to engaging in any activity that may endanger patient and/or others should she have recurrent seizure activity. Patient and mother voice understanding -Patient would like to be referred to Dr. Seay in neurology locally. She will d/w primary team re: referral -d/w patient in detail. All ? answered -Stable for discharge from neuro standpoint. No further inpatient neuro recs at this time. Will revisit prn. Thank you again for this consultation. Please call with ?. Time with Patient: Less than 30 (Time spent in direct patient care, greater than 50% of which was spent in [id number] counseling and coordination of care: 25 minutes.)
[2019-03-24] MEDS ORDERED: SUMAtriptan SUCCINATE 25 MG TAB PO STA ×2 (11:33→15:20)
[2019-03-24] MEDS ORDERED: ONDANSETRON 4 MG/2 ML VIAL IVP PRN (15:23)
[2019-03-24 16:31] VITALS: BP 99/65; PULSE 65; RESP 16
[2019-03-25] MEDS ORDERED: SUMAtriptan SUCCINATE 25 MG TAB PO PRN (06:00)
--- NOTE | 2019-04-04 23:43 | P.DS ---
Providers Date of admission: 03/24/19 07:58 Expected date of discharge: 03/24/19 Attending physician: Alex Lazar MD Consults: 03/22/19 23:58 Consult Physician Urgent Consulting Provider: Tressa Chavez Consult Reason/Comments: seizures, medication non-compliance Do you want consulting provider notified?: Yes Primary care physician: [facility] Hospital Course: Dischrage Diagnosis Generalized tonic-clonic seizures likely triggered by emotional stress. Migraine headaches. Patient is out of prescription for Topamax. Paroxysmal atrial tachycardia. On follow-up with cardiology Dr. Luong. 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 Patient is on lamotrigine and topiramate and has not been able to get her prescriptions refilled. Patient denied seizures at home and was having generalized weakness. Patient was having jerking movements while she was sitting on the sofa. Yesterday evening patient was sitting at the dinner table and was not feeling hungry and when to sit up. Since then patient was having 4 episodes of seizures and was brought to the hospital. Patient had multiple admissions for seizures Source and also intubated previously. Patient's mom is at bedside and provided most of the history. Denied any bladder or bowel incontinence. No tongue biting. Patient usually has staring spells with her seizures. Apparently patient has been upset emotionally for the past 1 week due to loss of her family member. EKG showed normal sinus rhythm EEG was done which showed normal electroencephalogram without background asymmetry or epileptiform discharges. Currently patient is awake alert and oriented 3. Still complains of generalized body aches and weakness. 03/24/19 Pt. says he POWELL is better. Imitrex did help. Pt was given script for imitrex PRN. -EEG negative for seizure activity. -Restarted TPM 25mg po qd -Continue LTG 200mg po bid followup with Dr. Seay as out pt. no CP/SOB. Pt. is sable to dischrage home. Pt. was counselled extensively. PHYSICAL EXAMINATION: Patient is lying in the bed comfortably, no acute distress, awake alert and oriented.. HEENT: Normocephalic. Neck is supple. Pupils reactive. Nostrils clear. Oral cavity is moist. Ears reveal no drainage. Neck reveals no JVD, carotid bruits, or thyromegaly. CHEST EXAMINATION: Trachea is central. Symmetrical expansion. Lung puentes clear to auscultation and percussion. CARDIAC: Normal S1, S2 with no gallops. No murmurs ABDOMEN: Soft. Bowel sounds normal. No organomegaly. No abdominal bruits. Extremities: reveal no edema. No clubbing or cyanosis Neurologically awake, alert, oriented x3 with well-coordinated movements. No focal deficits noted Skin: No rash or skin lesions. Psychiatric: Coperative. Nonsuicidal Musculoskeletal: No joint swelling or deformity. Normal range of motion. Vital Signs Temp 98.2 F 03/24/19 07:44 Pulse 64 03/24/19 08:00 Resp 17 03/24/19 07:44 BP 96/62 03/24/19 07:44 Pulse Ox 98 03/24/19 07:44 Intake & Output 03/23/19 03/24/19 03/24/19 18:59 06:59 18:59 Other: Voiding Method Toilet Toilet # Voids 1 2 # Bowel Movements 1 Time taken >35 min Patient Condition at Discharge: Stable Plan - Discharge Summary Discharge Rx Participant: Yes New Discharge Prescriptions: New SUMAtriptan SUCCINATE [Imitrex] 50 mg PO BID #9 tab lamoTRIgine [LaMICtal] 200 mg PO BID 7 Days #14 tab Topiramate [Topamax] 25 mg PO DAILY 7 Days #7 tab Continue Fluticasone Nasal [place] [Flonase Nasal [place]] 2 spr EA NOSTRIL DAILY Cetirizine HCl [Zyrtec] 10 mg PO DAILY Desvenlafaxine Succinate [Pristiq] 100 mg PO DAILY Omeprazole 40 mg PO DAILY Pnv No.95/Ferrous Fum/Folic AC [ Multivitamin Tablet] 1 tab PO DAILY Propranolol [Inderal] 40 mg PO DAILY #30 tab Discontinued Rizatriptan Benzoate [Rizatriptan] 10 mg PO DAILY PRN PRN Reason: Migraine Headache Ondansetron HCl [Zofran] 8 mg PO Q8H PRN PRN Reason: Nausea Topiramate [Topamax] 50 mg PO DAILY Ibuprofen 800 mg PO TID PRN PRN Reason: Pain lamoTRIgine [LaMICtal] 150 mg PO BID Discharge Medication List Cetirizine HCl [Zyrtec] 10 mg PO DAILY 08/20/17 [History] Fluticasone Nasal [place] [Flonase Nasal [place]] 2 spr EA NOSTRIL DAILY 08/20/17 [History] Desvenlafaxine Succinate [Pristiq] 100 mg PO DAILY 01/13/18 [History] Omeprazole 40 mg PO DAILY 03/23/19 [History] Pnv No.95/Ferrous Fum/Folic AC [ Multivitamin Tablet] 1 tab PO DAILY 03/23/19 [History] Propranolol [Inderal] 40 mg PO DAILY #30 tab 03/24/19 [Rx] SUMAtriptan SUCCINATE [Imitrex] 50 mg PO BID #9 tab 03/24/19 [Rx] Topiramate [Topamax] 25 mg PO DAILY 7 Days #7 tab 03/24/19 [Rx] lamoTRIgine [LaMICtal] 200 mg PO BID 7 Days #14 tab 03/24/19 [Rx] Follow up Appointment(s)/Referral(s): Nicki Lisa MD [Primary Care Provider] - 1-2 days (Please schedule appointment) Cuate Seay MD [STAFF PHYSICIAN] - 1 Week (Please schedule appointment. ) Patient Instructions/Handouts: Migraine Headache (GEN), Recurrent Seizures in Adults (DC) Discharge Disposition: HOME SELF-CARE
== END 2019-03-24 19:20 | disposition home or self-care (01) ==
LOC: EC 22:01 → 3NMEDONC 23:57 → UNDOADMOB 23:57 → 3NMEDONC 03-23 17:36 → 1SOBS 03-23 17:36 → OBSVTOIN 03-24 07:58 → INTOOBSV 03-24 07:58 → UNDODISIN 03-24 19:20
PROVIDERS: ADMIT Internal Medicine; ATTEND Internal Medicine
DX: G40.409 Other generalized epilepsy and epileptic syndromes, not intractable, without status epilepticus (principal); I47.1 Supraventricular tachycardia; G40.89 Other seizures; F32.9 Major depressive disorder, single episode, unspecified; F43.10 Post-traumatic stress disorder, unspecified; F90.9 Attention-deficit hyperactivity disorder, unspecified type; G43.009 Migraine without aura, not intractable, without status migrainosus; J45.909 Unspecified asthma, uncomplicated; K21.9 Gastro-esophageal reflux disease without esophagitis; F41.9 Anxiety disorder, unspecified; M79.7 Fibromyalgia; F43.9 Reaction to severe stress, unspecified; Z65.8 Other specified problems related to psychosocial circumstances; H53.8 Other visual disturbances; Z79.899 Other long term (current) drug therapy; Z88.6 Allergy status to analgesic agent; Z88.8 Allergy status to other drugs, medicaments and biological substances; Z91.048 Other nonmedicinal substance allergy status; Z88.2 Allergy status to sulfonamides; Z87.891 Personal history of nicotine dependence; Z87.19 Personal history of other diseases of the digestive system; Z87.2 Personal history of diseases of the skin and subcutaneous tissue; Z86.73 Personal history of transient ischemic attack (TIA), and cerebral infarction without residual deficits; Z87.448 Personal history of other diseases of urinary system; Z82.5 Family history of asthma and other chronic lower respiratory diseases; Z82.49 Family history of ischemic heart disease and other diseases of the circulatory system; Z81.8 Family history of other mental and behavioral disorders; Z83.79 Family history of other diseases of the digestive system
CPT/HCPCS: 96374; 96361; 99285; 36415; 95816; 93005; 80053; 85025; 81003; 80306; G0378 ×3; J2405; 96360

== ENCOUNTER 2020-04-08 22:22 | Emergency (ER) | payer OTHER ==
[2020-04-08] MEDS ORDERED: SODIUM CHLORIDE 0.9% 500 ML 500 ML IV STA (22:54)
[2020-04-08 23:43] LABS: Basophils % (A) 0 %; Eosinophils # (A) 0.1 k/uL (0-0.7); Eosinophils % (A) 1 %; HGB 11.6 gm/dL (11.4-16.0); Lymphocytes # (A) 2.2 k/uL (1.0-4.8); Lymphocytes % (A) 24 %; MCH 29.2 pg (25.0-35.0); MCHC 32.2 g/dL (31.0-37.0); MCV 90.6 fL (80.0-100.0); Mean Platelet Volume 7.3; Monocytes # (A) 0.4 k/uL (0-1.0); Monocytes % (A) 4 %; Neutrophils # (A) 6.2 k/uL (1.3-7.7); Neutrophils % (A) 69 %; Platelet Count 224 k/uL (150-450); RBC 3.98 m/uL (3.80-5.40); RDW 14.1 % (11.5-15.5)
[2020-04-08 23:51] LABS: ALT 12 U/L (4-34); AST 22 U/L (14-36); Acetaminophen 13.3 ug/mL; African American GFR (CKD) >90 (>60 ml/min/1.73 sqM); Alcohol <10 mg/dL; Alkaline Phosphatase 52 U/L (38-126); Anion Gap 6 mmol/L; Blood Urea Nitrogen 13 mg/dL (7-17); Calcium 9.3 mg/dL (8.4-10.2); Carbon Dioxide 25 mmol/L (22-30); Chloride 106 mmol/L (98-107); Glucose 87 mg/dL (74-99); Non-African American GFR(CKD) >90 (>60 ml/min/1.73 sqM); Potassium 3.7 mmol/L (3.5-5.1); Salicylate 8.5 mg/dL; Sodium 137 mmol/L (137-145); Total Bilirubin 0.2 mg/dL (0.2-1.3); Total Protein 6.1 g/dL (6.3-8.2)
[2020-04-08 23:52] LABS: Amphetamine Screen,Urine Detected (NotDetected); Benzodiazepines Screen,Urine Detected (NotDetected); Cocaine Screen,Urine Not Detected (NotDetected); Methadone Screen, Urine Not Detected (NotDetected); Opiate Screen,Urine Not Detected (NotDetected); Phencyclidine Screen,Urine Not Detected (NotDetected); Tricyclic Antidepressant,Urine Not Detected (NotDetected); Urn Cannabinoid Scrn Detected (NotDetected)
[2020-04-08 23:53] LABS: Barbiturate Screen,Urine Detected (NotDetected); Oxycodone Screen, Urine Not Detected (NotDetected)
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
[2020-04-09 01:14] VITALS: RESP 16
[2020-04-09 01:17] VITALS: BP 115/75; PULSE 72; TEMP 97.8
== END 2020-04-09 01:38 | disposition home or self-care (01) ==
LOC: EC 22:22
DX: T43.621A Poisoning by amphetamines, accidental (unintentional), initial encounter (principal); S05.11XA Contusion of eyeball and orbital tissues, right eye, initial encounter; S01.511A Laceration without foreign body of lip, initial encounter; J45.909 Unspecified asthma, uncomplicated; K21.9 Gastro-esophageal reflux disease without esophagitis; F32.9 Major depressive disorder, single episode, unspecified; F90.9 Attention-deficit hyperactivity disorder, unspecified type; F41.9 Anxiety disorder, unspecified; F43.10 Post-traumatic stress disorder, unspecified; M79.7 Fibromyalgia; Z79.51 Long term (current) use of inhaled steroids; Z79.899 Other long term (current) drug therapy; Z91.048 Other nonmedicinal substance allergy status; Z88.2 Allergy status to sulfonamides; Z88.8 Allergy status to other drugs, medicaments and biological substances; Z87.891 Personal history of nicotine dependence; Z86.73 Personal history of transient ischemic attack (TIA), and cerebral infarction without residual deficits; Y04.0XXA Assault by unarmed brawl or fight, initial encounter; Y92.009 Unspecified place in unspecified non-institutional (private) residence as the place of occurrence of the external cause
CPT/HCPCS: 82075; 36415; 93005; 80053; 82550; 83605; 85025; 81025; 80306; 83520; 72125; 70486; 70450; 99285; G0480 ×2; 80320; 80329

== ENCOUNTER 2020-05-30 12:26 | Emergency (ER) | payer OTHER ==
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
[2020-05-30] MEDS ORDERED: SODIUM CHLORIDE 0.9% 1,000 ML IV STA (13:14)
[2020-05-30] MEDS ORDERED: PANTOPRAZOLE 40 MG/10 ML VIAL IVP STA (13:15)
[2020-05-30] MEDS ORDERED: ACETAMINOPHEN TAB 500 MG TAB PO STA (13:55)
[2020-05-30 14:02] LABS: Basophils % (A) 0 %; Eosinophils % (A) 0 %; HCT 32.7 % (34.0-46.0); HGB 10.6 gm/dL (11.4-16.0); Lymphocytes # (A) 0.7 k/uL (1.0-4.8); Lymphocytes % (A) 5 %; MCH 28.8 pg (25.0-35.0); MCHC 32.4 g/dL (31.0-37.0); MCV 88.9 fL (80.0-100.0); Mean Platelet Volume 7.4; Monocytes # (A) 0.5 k/uL (0-1.0); Monocytes % (A) 4 %; Neutrophils # (A) 12.6 k/uL (1.3-7.7); Neutrophils % (A) 91 %; Platelet Count 170 k/uL (150-450); RBC 3.67 m/uL (3.80-5.40); WBC 13.9 k/uL (3.8-10.6)
[2020-05-30 14:07] LABS: Appearance,Urine Cloudy (Clear); Bilirubin,Urine Negative (Negative); Blood,Urine Small (Negative); Color,Urine Yellow; Glucose,Urine (UA) Negative (Negative); Hyaline Casts,Urine 91 /lpf (0-2); Ketones,Urine Negative (Negative); Leukocyte Esterase,Urine Large (Negative); Mucus,Urine Few /hpf; Nitrite,Urine Negative (Negative); Protein,Urine 1+ (Negative); RBC,Urine 60 /hpf (0-5); Specific Gravity,Urine 1.026 (1.001-1.035); Squamous Epithelial Cell,Urine 9 /hpf (0-4); WBC,Urine >182 /hpf (0-5)
[2020-05-30 14:18] LABS: ALT 28 U/L (4-34); AST 32 U/L (14-36); African American GFR (CKD) >90 (>60 ml/min/1.73 sqM); Albumin 3.6 g/dL (3.5-5.0); Alkaline Phosphatase 61 U/L (38-126); Anion Gap 7 mmol/L; Blood Urea Nitrogen 14 mg/dL (7-17); Calcium 8.9 mg/dL (8.4-10.2); Carbon Dioxide 25 mmol/L (22-30); Chloride 107 mmol/L (98-107); Glucose 102 mg/dL (74-99); Non-African American GFR(CKD) >90 (>60 ml/min/1.73 sqM); Potassium 3.9 mmol/L (3.5-5.1); Sodium 139 mmol/L (137-145); Total Bilirubin 0.8 mg/dL (0.2-1.3)
[2020-05-30] MEDS ORDERED: ONDANSETRON 4 MG/2 ML VIAL IVP STA (14:44)
[2020-05-30] MEDS ORDERED: cefTRIAXone IN SWFI 1,000 MG/10 ML SYRINGE IVP STA (14:44)
[2020-05-30 14:54] VITALS: BP 100/57; PULSE 94; RESP 16; TEMP 98.6
== END 2020-05-30 15:20 | disposition home or self-care (01) ==
LOC: EC 12:26
DX: N39.0 Urinary tract infection, site not specified (principal); G62.9 Polyneuropathy, unspecified; R19.7 Diarrhea, unspecified; D72.829 Elevated white blood cell count, unspecified; G43.909 Migraine, unspecified, not intractable, without status migrainosus; F41.9 Anxiety disorder, unspecified; F32.9 Major depressive disorder, single episode, unspecified; F43.10 Post-traumatic stress disorder, unspecified; M79.7 Fibromyalgia; J45.909 Unspecified asthma, uncomplicated; G40.802 Other epilepsy, not intractable, without status epilepticus; Z79.899 Other long term (current) drug therapy; Z79.82 Long term (current) use of aspirin; Z87.891 Personal history of nicotine dependence; Z91.048 Other nonmedicinal substance allergy status; Z88.2 Allergy status to sulfonamides; Z88.8 Allergy status to other drugs, medicaments and biological substances; Z86.73 Personal history of transient ischemic attack (TIA), and cerebral infarction without residual deficits
CPT/HCPCS: 36415; 80053; 85025; 81001; 81025; 87086; 99283; 96374; 96375 ×2; 96361; U0003; J2405; J0696; C9113

== ENCOUNTER 2020-06-01 03:01 | Emergency (ER) | payer OTHER ==
[2020-06-01] MEDS ORDERED: LIDOCAINE 1% INJ 10MG/ML (20 ML MDV) SQ ONE (03:42)
[2020-06-01 03:54] LABS: Appearance,Urine Clear (Clear); Bacteria,Urine Rare /hpf; Bilirubin,Urine Negative (Negative); Blood,Urine Large (Negative); Color,Urine Yellow; Glucose,Urine (UA) Negative (Negative); Ketones,Urine Negative (Negative); Leukocyte Esterase,Urine Large (Negative); Mucus,Urine Rare /hpf; Nitrite,Urine Negative (Negative); PH, Urine 6.5 (5.0-8.0); Protein,Urine Negative (Negative); RBC,Urine 176 /hpf (0-5); Squamous Epithelial Cell,Urine 2 /hpf (0-4); Urobilinogen,Urine <2.0 mg/dL (<2.0); WBC,Urine 38 /hpf (0-5)
[2020-06-01] MEDS ORDERED: HYDROcodone/APAP 5-325MG 1 EACH TAB PO STA (04:35)
[2020-06-01] MEDS ORDERED: IBUPROFEN 600 MG TAB PO STA (04:37)
--- NOTE | 2020-06-01 05:22 | ED ---
General Adult HPI - General Chief complaint: Recheck/Abnormal Lab/Rx Stated complaint: dizziness,nausea Time Seen by Provider: 06/01/20 03:11 Source: patient Mode of arrival: ambulatory Limitations: no limitations - History of Present Illness Initial comments: This patient is 34-year-old woman who presents to be evaluated for 2 complaints. She is having some dysuria and frequency and was diagnosed with urinary tract infection. She has been taking Keflex for this going on 2 days now. She states that she does continue to have urinary symptoms. In addition she is having low back/buttock pain and they did note that she has an abscess. Patient's mother states that they had a copious amount of purulent drainage from it this evening prior to coming in. The abscess had been present for a few days progressively growing in size. Onset/Timin -: days(s) Location: back Radiation: non-radiation Quality: aching Consistency: constant Improves with: none Worsens with: other (Palpation) Associated Symptoms: fever/chills, other (Dysuria and frequency) Treatments Prior to Arrival: other (Tylenol) - Related Data Home Medications Medication Instructions Recorded Confirmed Fluticasone Nasal [place] [Flonase 1 spr EA NOSTRIL DAILY 08/20/17 05/30/20 Nasal [place]] Aspirin EC [Ecotrin Low Dose] 81 mg PO DAILY 05/30/20 05/30/20 Aspirin/Acetaminophen/Caffeine 2 - 3 tab PO DAILY PRN 05/30/20 05/30/20 [Excedrin Migraine Caplet] FLUoxetine HCL 40 mg PO DAILY 05/30/20 05/30/20 Loratadine [Claritin] 10 mg PO DAILY 05/30/20 05/30/20 lamoTRIgine [LaMICtal] 150 mg PO BID 05/30/20 05/30/20 traZODone HCL [Desyrel] 100 mg PO HS 05/30/20 05/30/20 Previous Rx's Medication Instructions Recorded Cephalexin [Keflex] 500 mg PO Q6HR #40 cap 05/30/20 Ondansetron Odt [Zofran Odt] 4 mg PO Q8HR PRN #10 tab 05/30/20 Hydrocodone/Acetaminophen [[place] 1 each PO Q6HR PRN #15 tab 06/01/20 5-325] Sulfamethox-Tmp 800-160Mg [Bactrim 1 each PO Q12HR #14 tab 06/01/20 Ds] Allergies Allergy/AdvReac Type Severity Reaction Status Date / Time adhesive Allergy Rash, Verified 06/01/20 03:10 PEELS SKIN OFF AND BLEEDS divalproex sodium Allergy Unknown Verified 06/01/20 03:10 [From Depakote] Sulfa (Sulfonamide Allergy Anaphylaxis Verified 06/01/20 03:10 Antibiotics) aripiprazole [From Abilify] AdvReac SUICIDAL Verified 06/01/20 03:10 THOUGHTS, CUT HERSELF Review of Systems ROS Statement: Those systems with pertinent positive or pertinent negative responses have been documented in the HPI. ROS Other: All systems not noted in ROS Statement are negative. Constitutional: Reports: fever, chills. Denies: weakness Respiratory: Denies: cough, dyspnea Cardiovascular: Denies: chest pain, palpitations, edema Gastrointestinal: Denies: abdominal pain, nausea, vomiting, diarrhea, constipation Genitourinary: Reports: as per HPI, dysuria, frequency. Denies: discharge, abnormal menses Musculoskeletal: Reports: as per HPI, back pain Skin: Denies: rash Neurological: Denies: headache, weakness, numbness Past Medical History Past Medical History: Asthma, CVA/TIA, Fibromyalgia, GERD/Reflux, GI Bleed, Renal Disease, Seizure Disorder, Skin Disorder Additional Past Medical History / Comment(s): "VOMITING BLOOD". HAS PTSD, PSYCHOSOMATIC SEIZURE DISORDER; OCC EPISODE OF INCR HR & BLOOD PRESSURE, PROB R/T ANXIETY. 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 migraines History of Any Multi-Drug Resistant Organisms: None Reported Past Surgical History: Orthopedic Surgery, Tonsillectomy Additional Past Surgical History / Comment(s): RECONSTRUCTION LT SHOULDER X3. Past Anesthesia/Blood Transfusion Reactions: Motion Sickness Past Psychological History: ADD/ADHD, Anxiety, Depression, PTSD Smoking Status: Former smoker Past Alcohol Use History: None Reported Past Drug Use History: Marijuana - Past Family History Mother Family Medical History: Asthma, Congestive Heart Failure (CHF), COPD, GERD/Reflux Additional Family Medical History / Comment(s): PTSD, depression General Exam Limitations: no limitations General appearance: alert, in no apparent distress Head exam: Present: atraumatic, normocephalic Eye exam: Present: normal appearance. Absent: scleral icterus, conjunctival injection ENT exam: Present: normal oropharynx Neck exam: Present: normal inspection Respiratory exam: Present: normal lung sounds bilaterally. Absent: respiratory distress, wheezes, rales, rhonchi, stridor Cardiovascular Exam: Present: regular rate, normal rhythm, normal heart sounds. Absent: systolic murmur, diastolic murmur, rubs, gallop GI/Abdominal exam: Present: soft. Absent: distended, tenderness, guarding, rebound, mass Extremities exam: Present: normal inspection, normal capillary refill. Absent: pedal edema, calf tenderness Back exam: Present: other ( has an approximately 7 cm diameter of erythema and warmth overlying fluctuant area consistent with abscess. There is central tract which is draining.) Neurological exam: Present: alert Skin exam: Present: warm, dry, erythema (Please see the back exam). Absent: rash Course Vital Signs 06/01/20 06/01/20 03:07 05:36 Temperature 98.7 F 98.2 F Pulse Rate 89 103 H Respiratory 18 16 Rate Blood Pressure 129/81 116/69 O2 Sat by Pulse 100 99 Oximetry Procedures - [facility] Protocol (Time Out) Procedure Performed:: I &D of pilonidal cyst Performing Provider: Kingsley Florez Nurse: Kerry Baca Patient Identification (2 identifiers required): Chart, Verbal, Arm Band, Name, Birthdate Patient/Legal Exploration Driller has Confirmed: Identity, Site, Procedure, Consent Site: lower back Site Marked: Yes Site Verified With Patient/Guardian: Yes - Incision & Drainage Consent Obtained: written consent Site: buttock Anesthetic Used: lidocaine 1% I&D Cleaning Method: Chloroprep Sterile Field Used?: No Scalpel Used: #11 Irrigation Performed?: Yes I&D Drainage Obtained: Pus, Blood Packing: Iodoform Patient Tolerated Procedure: well, no complications Medical Decision Making - Medical Decision Making Patient is a 34-year-old woman presenting with left buttock abscess. The abscess is draining however the tract is very small. To facilitate healing of the tract is enlarged and the abscess is packed with iodoform gauze. Indications, risks and benefits discussed. Tylenol performed. Please see the procedure note. Discussed appropriate further care including follow-up, return parameters, medication use, and management of the packing. - Lab Data Lab Results 10/01/20 10/01/20 Range/Units 03:27 03:27 Urine Color Yellow Urine Appearance Clear (Clear) Urine pH 6.5 (5.0-8.0) Ur Specific [place] 1.010 (1.001-1.035) Urine Protein Negative (Negative) Urine Glucose (UA) Negative (Negative) Urine Ketones Negative (Negative) Urine Blood Large H (Negative) Urine Nitrite Negative (Negative) Urine Bilirubin Negative (Negative) Urine Urobilinogen <2.0 (<2.0) mg/dL Ur Leukocyte Esterase Large H (Negative) Urine RBC 176 H (0-5) /hpf Urine WBC 38 H (0-5) /hpf Ur Squamous Epith Cells 2 (0-4) /hpf Urine Bacteria Rare H (None) /hpf Urine Mucus Rare H (None) /hpf Urine HCG, Qual Not Detected (Not Detectd) Disposition Clinical Impression: Urinary tract infection, Abscess Disposition: HOME SELF-CARE Condition: Good Instructions (If sedation given, give patient instructions): Urinary Tract Infection in Women (ED), Abscess Incision and Drainage (ED) Prescriptions: Sulfamethox-Tmp 800-160Mg [Bactrim Ds] 1 each PO Q12HR #14 tab Hydrocodone/Acetaminophen [[place] 5-325] 1 each PO Q6HR PRN #15 tab PRN Reason: Pain Is patient prescribed a controlled substance at d/c from ED?: Yes When asked, does pt state using other controlled substances?: No If prescribed controlled substance>3 days was MAPS reviewed?: Prescribed <3 Days If opioid is for acute pain is fill amount 7 days or less?: Yes If Rx opioid, was Start Talking consent form obtained?: Yes Referrals: India Vazquez MD [Primary Care Provider] - 1-2 days Kathie Russell MD [STAFF PHYSICIAN] - 1-2 days
[2020-06-01 05:59] VITALS: BP 116/69; PULSE 103; RESP 16; TEMP 98.2
== END 2020-06-01 05:36 | disposition home or self-care (01) ==
LOC: EC 03:01
DX: N39.0 Urinary tract infection, site not specified (principal); L02.31 Cutaneous abscess of buttock; F41.9 Anxiety disorder, unspecified; F32.9 Major depressive disorder, single episode, unspecified; F43.10 Post-traumatic stress disorder, unspecified; G43.909 Migraine, unspecified, not intractable, without status migrainosus; G40.802 Other epilepsy, not intractable, without status epilepticus; Z79.82 Long term (current) use of aspirin; Z79.899 Other long term (current) drug therapy; Z87.891 Personal history of nicotine dependence; Z88.2 Allergy status to sulfonamides; Z88.8 Allergy status to other drugs, medicaments and biological substances; Z91.048 Other nonmedicinal substance allergy status
CPT/HCPCS: 81001; 81025; 87086; 10080; 99284; J2001

== ENCOUNTER 2020-06-06 17:36 | Emergency (ER) | payer OTHER ==
[2020-06-06] MEDS ORDERED: SODIUM CHLORIDE 0.9% 1,000 ML IV STA (18:09)
[2020-06-06] MEDS ORDERED: KETOROLAC 15 MG/ML 1 ML VIAL IVP STA (18:10)
[2020-06-06] MEDS ORDERED: ONDANSETRON 4 MG/2 ML VIAL IVP STA (18:35)
[2020-06-06 18:41] LABS: Appearance,Urine Cloudy (Clear); Bacteria,Urine Rare /hpf; Bilirubin,Urine Negative (Negative); Blood,Urine Negative (Negative); Color,Urine Yellow; Glucose,Urine (UA) Negative (Negative); Hyaline Casts,Urine 1 /lpf (0-2); Ketones,Urine Negative (Negative); Leukocyte Esterase,Urine Large (Negative); Mucus,Urine Few /hpf; Nitrite,Urine Negative (Negative); PH, Urine 6.5 (5.0-8.0); Protein,Urine Trace (Negative); RBC,Urine 37 /hpf (0-5); Specific Gravity,Urine 1.033 (1.001-1.035); Squamous Epithelial Cell,Urine 6 /hpf (0-4); Urobilinogen,Urine <2.0 mg/dL (<2.0); WBC,Urine 117 /hpf (0-5)
[2020-06-06 18:42] LABS: Basophils # (A) 0.1 k/uL (0-0.2); Basophils % (A) 1 %; Eosinophils # (A) 0.1 k/uL (0-0.7); Eosinophils % (A) 1 %; HCT 33.2 % (34.0-46.0); HGB 10.7 gm/dL (11.4-16.0); Hypochromasia Slight; Lymphocytes # (A) 1.4 k/uL (1.0-4.8); Lymphocytes % (A) 22 %; MCH 29.7 pg (25.0-35.0); MCHC 32.4 g/dL (31.0-37.0); MCV 91.7 fL (80.0-100.0); Mean Platelet Volume 6.9; Monocytes # (A) 0.2 k/uL (0-1.0); Monocytes % (A) 4 %; Neutrophils # (A) 4.4 k/uL (1.3-7.7); Neutrophils % (A) 71 %; Platelet Count 304 k/uL (150-450); RBC 3.62 m/uL (3.80-5.40); WBC 6.2 k/uL (3.8-10.6)
[2020-06-06 18:51] LABS: C Reactive Protein 10.7 mg/L (<10.0); Calcium 9.4 mg/dL (8.4-10.2); Potassium 3.7 mmol/L (3.5-5.1); Total Bilirubin 0.3 mg/dL (0.2-1.3); Total Protein 6.6 g/dL (6.3-8.2)
[2020-06-06] MEDS ORDERED: cefTRIAXone IN SWFI 1,000 MG/10 ML SYRINGE IVP STA (19:03)
[2020-06-06 19:22] VITALS: BP 103/66; PULSE 93; RESP 16; TEMP 98.1
--- NOTE | 2020-06-06 19:26 | ED ---
Skin/Abscess/FB HPI - General Source: patient Mode of arrival: ambulatory Limitations: no limitations <Henrietta Johnson - Last Filed: 06/06/20 23:08> <Cadence Maldonado - Last Filed: 06/07/20 14:36> - General Chief complaint: Skin/Abscess/Foreign Body Stated complaint: POSS SEPTIC PER PCP Time Seen by Provider: 06/06/20 17:50 - History of Present Illness Initial comments: Patient is a 34-year-old female presenting to emergency Department with complaints of a possible worsening infection. Patient states she is currently being treated for a UTI and was just switched to Bactrim. Patient states she's also was seen in the ER and had an I&D performed on pilonidal abscess 5 days ago. Patient states that the area has continued to be painful, draining. She states she did not follow-up with a surgeon as instructed. Patient states she has been waking up sweating, mother stated she gave patient Tylenol 2 hours prior to arrival. He is also been nauseous and not eating a lot. She states she is currently still having some urinary symptoms. Patient has an appointment with her PCP in 3 days. He denies any chest pain, shortness of breath. She denies any vomiting, diarrhea. She has no further complaints at this time. I will to the ER, her vital signs are stable. (Henrietta Johnson) - Related Data Home Medications Medication Instructions Recorded Confirmed Fluticasone Nasal [place] [Flonase 1 spr EA NOSTRIL DAILY 08/20/17 05/30/20 Nasal [place]] Aspirin EC [Ecotrin Low Dose] 81 mg PO DAILY 05/30/20 05/30/20 Aspirin/Acetaminophen/Caffeine 2 - 3 tab PO DAILY PRN 05/30/20 05/30/20 [Excedrin Migraine Caplet] FLUoxetine HCL 40 mg PO DAILY 05/30/20 05/30/20 Loratadine [Claritin] 10 mg PO DAILY 05/30/20 05/30/20 lamoTRIgine [LaMICtal] 150 mg PO BID 05/30/20 05/30/20 traZODone HCL [Desyrel] 100 mg PO HS 05/30/20 05/30/20 Previous Rx's Medication Instructions Recorded Cephalexin [Keflex] 500 mg PO Q6HR #40 cap 05/30/20 Ondansetron Odt [Zofran Odt] 4 mg PO Q8HR PRN #10 tab 05/30/20 Hydrocodone/Acetaminophen [[place] 1 each PO Q6HR PRN #15 tab 06/01/20 5-325] Sulfamethox-Tmp 800-160Mg [Bactrim 1 each PO Q12HR #14 tab 06/01/20 Ds] Cephalexin [Keflex] 500 mg PO Q6HR 7 Days #28 cap 06/06/20 Ketorolac [Toradol] 10 mg PO Q8HR PRN #15 tab 06/06/20 Sulfamethox-Tmp 800-160Mg [Bactrim 1 each PO Q12HR 7 Days #14 tab 06/06/20 Ds] Allergies Allergy/AdvReac Type Severity Reaction Status Date / Time adhesive Allergy Rash, Verified 06/06/20 17:45 PEELS SKIN OFF AND BLEEDS divalproex sodium Allergy Unknown Verified 06/06/20 17:45 [From Depakote] Sulfa (Sulfonamide Allergy Anaphylaxis Verified 06/06/20 17:45 Antibiotics) aripiprazole [From Abilify] AdvReac SUICIDAL Verified 06/06/20 17:45 THOUGHTS, CUT HERSELF Review of Systems ROS Other: All systems not noted in ROS Statement are negative. <Henrietta Johnson - Last Filed: 06/06/20 23:08> ROS Other: All systems not noted in ROS Statement are negative. <Cadence Maldonado - Last Filed: 06/07/20 14:36> ROS Statement: Those systems with pertinent positive or pertinent negative responses have been documented in the HPI. Past Medical History Past Medical History: Asthma, CVA/TIA, Fibromyalgia, GERD/Reflux, GI Bleed, Renal Disease, Seizure Disorder, Skin Disorder Additional Past Medical History / Comment(s): "VOMITING BLOOD". HAS PTSD, PSYCHOSOMATIC SEIZURE DISORDER; OCC EPISODE OF INCR HR & BLOOD PRESSURE, PROB R/T ANXIETY. 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 migraines History of Any Multi-Drug Resistant Organisms: None Reported Past Surgical History: Orthopedic Surgery, Tonsillectomy Additional Past Surgical History / Comment(s): RECONSTRUCTION LT SHOULDER X3. Past Anesthesia/Blood Transfusion Reactions: Motion Sickness Past Psychological History: ADD/ADHD, Anxiety, Depression, PTSD Smoking Status: Current some day smoker Past Alcohol Use History: None Reported Past Drug Use History: None Reported - Past Family History Mother Family Medical History: Asthma, Congestive Heart Failure (CHF), COPD, GERD/Reflux Additional Family Medical History / Comment(s): PTSD, depression <Henrietta Johnson - Last Filed: 06/06/20 23:08> General Exam Limitations: no limitations <Henrietta Johnson - Last Filed: 06/06/20 23:08> - General Exam Comments Initial Comments: GENERAL: Patient is well-developed and well-nourished. Patient is nontoxic and in no acute distress. HEAD: Atraumatic, normocephalic. EYES: Pupils equal round and reactive to light, extraocular movements intact, sclera anicteric, conjunctiva are normal. Eyelids were unremarkable. ENT: TMs normal, nares patent, oropharynx clear without exudates. Moist mucous membranes. NECK: Normal range of motion, supple without lymphadenopathy or JVD. LUNGS: Unlabored respirations. Breath sounds clear to auscultation bilaterally and equal. No wheezes rales or rhonchi. HEART: Regular rate and rhythm without murmurs, rubs or gallops. ABDOMEN: Soft, nontender, normoactive bowel sounds. No guarding, no rebound. No masses appreciated. : Deferred MUSCULOSKELETAL: Normal extremities with adequate strength and normal range of motion, no pitting or edema. No clubbing or cyanosis. NEUROLOGICAL: Patient is alert and oriented x 3. Motor and sensory are also intact. Cranial nerves II through XII grossly intact. Symmetrical smile. Normal speech, normal gait. PSYCH: Normal mood, normal affect. SKIN: Warm, Dry, normal turgor, no rashes. Patient has an approximate 1 cm incision on her left gluteal region from a recent I&D procedure 1 week ago. There is packing present which I did remove, packing was covered with yellow, bloody drainage. The skin around the incision looks clean, dry, not erythematous. There is no signs of a spreading infection at this time. There is still some induration on the superior portion of the wound. (Henrietta Johnson) Course Vital Signs 06/06/20 06/06/20 17:41 19:21 Temperature 98.9 F 98.1 F Pulse Rate 97 93 Respiratory 18 16 Rate Blood Pressure 107/65 103/66 O2 Sat by Pulse 100 Oximetry Medical Decision Making - Lab Data Result diagrams: 06/06/20 18:25 06/06/20 18:25 <Henrietta Johnson - Last Filed: 06/06/20 23:08> - Lab Data Result diagrams: 06/06/20 18:25 06/06/20 18:25 <Cadence Maldonado - Last Filed: 06/07/20 14:36> - Medical Decision Making Patient is a 34-year-old female here for possible worsening of an piloondal abscess. Her vital signs are stable upon arrival. Patient is already on the Bactrim and will finish tomorrow. Patient's wound appears clean and dry, no surrounding erythema or signs of spreading infection. I did remove the packing from the wound. Lab work shows a normal white count, lactic acid is normal, CRP is 10. Urine does show evidence for a continued UTI. Her past urine cultures have been negative. I discussed with patient that her wound seems to be healing well. I did recommend continuing with Keflex and Bactrim for her continued UTI as well as abscess. Patient was given 1 g Rocephin in the ER for her UTI. I will also give patient Toradol for pain relief. She is in agreement with this plan of care. She is stable for discharge. She will follow up with a surgeon in regards to her abscess. She will continue to follow-up with her PCP as scheduled in 3 days. Return parameters were discussed with the patient and she verbalized understanding. Case discussed with Dr. Maldonado. (Henrietta Johnson) I was available for consultation in the emergency department. The history and physical exam were done by the midlevel provider. I was consulted for this patients care. I reviewed the case with the midlevel provider and based on their presentation of the patient, I agree with the assessment, medical decision making and plan of care as documented. Patient does not meet any sepsis criteria Chart was dictated using [employer] dictation software. Attempts were made to correct any dictation errors however some typographical errors may persist. (Cadence Maldonado) - Lab Data Lab Results 06/06/20 06/06/20 06/06/20 Range/Units 18:25 18:25 18:25 WBC 6.2 (3.8-10.6) k/uL RBC 3.62 L (3.80-5.40) m/uL Hgb 10.7 L (11.4-16.0) gm/dL Hct 33.2 L (34.0-46.0) % MCV 91.7 (80.0-100.0) fL MCH 29.7 (25.0-35.0) pg MCHC 32.4 (31.0-37.0) g/dL RDW 14.0 (11.5-15.5) % Plt Count 304 (150-450) k/uL Neutrophils % 71 % Lymphocytes % 22 % Monocytes % 4 % Eosinophils % 1 % Basophils % 1 % Neutrophils # 4.4 (1.3-7.7) k/uL Lymphocytes # 1.4 (1.0-4.8) k/uL Monocytes # 0.2 (0-1.0) k/uL Eosinophils # 0.1 (0-0.7) k/uL Basophils # 0.1 (0-0.2) k/uL Hypochromasia Slight Sodium (137-145) mmol/L Potassium (3.5-5.1) mmol/L Chloride (98-107) mmol/L Carbon Dioxide (22-30) mmol/L Anion Gap mmol/L BUN (7-17) mg/dL Creatinine (0.52-1.04) mg/dL Est GFR (CKD-EPI)AfAm (>60 ml/min/1.73 sqM) Est GFR (CKD-EPI)NonAf (>60 ml/min/1.73 sqM) Glucose (74-99) mg/dL Plasma Lactic Acid Perfecto (0.7-2.0) mmol/L Calcium (8.4-10.2) mg/dL Total Bilirubin (0.2-1.3) mg/dL AST (14-36) U/L ALT (4-34) U/L Alkaline Phosphatase (38-126) U/L C-Reactive Protein (<10.0) mg/L Total Protein (6.3-8.2) g/dL Albumin (3.5-5.0) g/dL Urine Color Yellow Urine Appearance Cloudy H (Clear) Urine pH 6.5 (5.0-8.0) Ur Specific [place] 1.033 (1.001-1.035) Urine Protein Trace H (Negative) Urine Glucose (UA) Negative (Negative) Urine Ketones Negative (Negative) Urine Blood Negative (Negative) Urine Nitrite Negative (Negative) Urine Bilirubin Negative (Negative) Urine Urobilinogen <2.0 (<2.0) mg/dL Ur Leukocyte Esterase Large H (Negative) Urine RBC 37 H (0-5) /hpf Urine WBC 117 H (0-5) /hpf Ur Squamous Epith Cells 6 H (0-4) /hpf Urine Bacteria Rare H (None) /hpf Hyaline Casts 1 (0-2) /lpf Urine Mucus Few H (None) /hpf Urine HCG, Qual Not Detected (Not Detectd) 06/06/20 06/06/20 Range/Units 18:25 18:25 WBC (3.8-10.6) k/uL RBC (3.80-5.40) m/uL Hgb (11.4-16.0) gm/dL Hct (34.0-46.0) % MCV (80.0-100.0) fL MCH (25.0-35.0) pg MCHC (31.0-37.0) g/dL RDW (11.5-15.5) % Plt Count (150-450) k/uL Neutrophils % % Lymphocytes % % Monocytes % % Eosinophils % % Basophils % % Neutrophils # (1.3-7.7) k/uL Lymphocytes # (1.0-4.8) k/uL Monocytes # (0-1.0) k/uL Eosinophils # (0-0.7) k/uL Basophils # (0-0.2) k/uL Hypochromasia Sodium 136 L (137-145) mmol/L Potassium 3.7 (3.5-5.1) mmol/L Chloride 102 (98-107) mmol/L Carbon Dioxide 25 (22-30) mmol/L Anion Gap 9 mmol/L BUN 12 (7-17) mg/dL Creatinine 1.08 H (0.52-1.04) mg/dL Est GFR (CKD-EPI)AfAm 78 (>60 ml/min/1.73 sqM) Est GFR (CKD-EPI)NonAf 68 (>60 ml/min/1.73 sqM) Glucose 84 (74-99) mg/dL Plasma Lactic Acid Perfecto 1.1 (0.7-2.0) mmol/L Calcium 9.4 (8.4-10.2) mg/dL Total Bilirubin 0.3 (0.2-1.3) mg/dL AST 29 (14-36) U/L ALT 16 (4-34) U/L Alkaline Phosphatase 65 (38-126) U/L C-Reactive Protein 10.7 H (<10.0) mg/L Total Protein 6.6 (6.3-8.2) g/dL Albumin 4.0 (3.5-5.0) g/dL Urine Color Urine Appearance (Clear) Urine pH (5.0-8.0) Ur Specific [place] (1.001-1.035) Urine Protein (Negative) Urine Glucose (UA) (Negative) Urine Ketones (Negative) Urine Blood (Negative) Urine Nitrite (Negative) Urine Bilirubin (Negative) Urine Urobilinogen (<2.0) mg/dL Ur Leukocyte Esterase (Negative) Urine RBC (0-5) /hpf Urine WBC (0-5) /hpf Ur Squamous Epith Cells (0-4) /hpf Urine Bacteria (None) /hpf Hyaline Casts (0-2) /lpf Urine Mucus (None) /hpf Urine HCG, Qual (Not Detectd) Disposition Is patient prescribed a controlled substance at d/c from ED?: No <Henrietta Johnson - Last Filed: 06/06/20 23:08> <Cadence Maldonado - Last Filed: 06/07/20 14:36> Clinical Impression: Urinary tract infection, Abscess Disposition: HOME SELF-CARE Condition: Stable Instructions (If sedation given, give patient instructions): Abscess (ED) Additional Instructions: Please return to the Emergency Department if symptoms worsen or any other concerns. Continue to apply warm compresses to abscess area. Follow-up with PCP and surgeon as discussed. Take both antibiotics as directed. May alternate Toradol with Tylenol. Prescriptions: Sulfamethox-Tmp 800-160Mg [Bactrim Ds] 1 each PO Q12HR 7 Days #14 tab Cephalexin [Keflex] 500 mg PO Q6HR 7 Days #28 cap Ketorolac [Toradol] 10 mg PO Q8HR PRN #15 tab PRN Reason: Pain Referrals: India Vazquez MD [Primary Care Provider] - 1-2 days Kathie Russell MD [STAFF PHYSICIAN] - 1-2 days
== END 2020-06-06 20:22 | disposition home or self-care (01) ==
LOC: EC 17:36
DX: N39.0 Urinary tract infection, site not specified (principal); L02.31 Cutaneous abscess of buttock; Z48.01 Encounter for change or removal of surgical wound dressing; J45.909 Unspecified asthma, uncomplicated; F41.9 Anxiety disorder, unspecified; F32.9 Major depressive disorder, single episode, unspecified; G40.909 Epilepsy, unspecified, not intractable, without status epilepticus; F17.200 Nicotine dependence, unspecified, uncomplicated; Z79.51 Long term (current) use of inhaled steroids; Z79.82 Long term (current) use of aspirin; Z79.899 Other long term (current) drug therapy; Z88.8 Allergy status to other drugs, medicaments and biological substances; Z91.040 Latex allergy status; Z88.2 Allergy status to sulfonamides
CPT/HCPCS: 36415; 80053; 83605; 85025; 86140; 81001; 81025; 87040; 87086; 99283; 96374; 96375 ×2; 96361; J2405; J0696; J1885

== ENCOUNTER 2020-10-24 14:11 | Emergency (ER) | payer OTHER ==
[2020-10-24] MEDS ORDERED: diphenhydrAMINE 50 MG/ML 1 ML VIAL IVP STA (14:44)
[2020-10-24] MEDS ORDERED: ONDANSETRON 4 MG/2 ML VIAL IVP STA (14:44)
[2020-10-24] MEDS ORDERED: SODIUM CHLORIDE 0.9% 1,000 ML IV STA (14:44)
[2020-10-24] MEDS ORDERED: HYDROmorphone 1 MG/ML 1 ML SYRINGE IVP STA (14:44)
--- NOTE | 2020-10-24 14:46 | ED ---
General Adult HPI - General Chief complaint: Recheck/Abnormal Lab/Rx Stated complaint: Reaction to new med Time Seen by Provider: 10/24/20 14:39 Source: patient, RN notes reviewed Mode of arrival: ambulatory Limitations: no limitations - History of Present Illness Initial comments: Patient is a 35-year-old female presents emergency Department with migraine type headaches. She noted that she did have a seizure last night, and she does have a history of seizure disorder. She noted she was recently started on Lexapro by her psychiatrist called them this morning to see if they could change it and/or stopped medication. She did not take her dose this morning. She noted that she does have photophobia and phonophobia. She also noted some mental fogginess. She also that she's vomited about 3 times today to produce just phlegm that was nonbilious and nonbloody. She appeared to be in mild distress while lying in bed during exam and interview. She denied any chest pain shortness of breath constipation diarrhea lightheadedness dizziness or syncope fever fatigue chills - Related Data Home Medications Medication Instructions Recorded Confirmed Fluticasone Nasal [place] [Flonase 1 spr EA NOSTRIL DAILY 08/20/17 05/30/20 Nasal [place]] Aspirin EC [Ecotrin Low Dose] 81 mg PO DAILY 05/30/20 05/30/20 Aspirin/Acetaminophen/Caffeine 2 - 3 tab PO DAILY PRN 05/30/20 05/30/20 [Excedrin Migraine Caplet] FLUoxetine HCL 40 mg PO DAILY 05/30/20 05/30/20 Loratadine [Claritin] 10 mg PO DAILY 05/30/20 05/30/20 lamoTRIgine [LaMICtal] 150 mg PO BID 05/30/20 05/30/20 traZODone HCL [Desyrel] 100 mg PO HS 05/30/20 05/30/20 Previous Rx's Medication Instructions Recorded Cephalexin [Keflex] 500 mg PO Q6HR #40 cap 05/30/20 Ondansetron Odt [Zofran Odt] 4 mg PO Q8HR PRN #10 tab 05/30/20 Hydrocodone/Acetaminophen [[place] 1 each PO Q6HR PRN #15 tab 06/01/20 5-325] Sulfamethox-Tmp 800-160Mg [Bactrim 1 each PO Q12HR #14 tab 06/01/20 Ds] Cephalexin [Keflex] 500 mg PO Q6HR 7 Days #28 cap 06/06/20 Ketorolac [Toradol] 10 mg PO Q8HR PRN #15 tab 06/06/20 Sulfamethox-Tmp 800-160Mg [Bactrim 1 each PO Q12HR 7 Days #14 tab 06/06/20 Ds] Allergies Allergy/AdvReac Type Severity Reaction Status Date / Time adhesive Allergy Rash, Verified 10/24/20 14:20 PEELS SKIN OFF AND BLEEDS divalproex sodium Allergy Unknown Verified 10/24/20 14:20 [From Depakote] Sulfa (Sulfonamide Allergy Anaphylaxis Verified 10/24/20 14:20 Antibiotics) aripiprazole [From Abilify] AdvReac SUICIDAL Verified 10/24/20 14:20 THOUGHTS, CUT HERSELF Review of Systems ROS Statement: Those systems with pertinent positive or pertinent negative responses have been documented in the HPI. ROS Other: All systems not noted in ROS Statement are negative. Past Medical History Past Medical History: Asthma, CVA/TIA, Fibromyalgia, GERD/Reflux, GI Bleed, Renal Disease, Seizure Disorder, Skin Disorder Additional Past Medical History / Comment(s): "VOMITING BLOOD". HAS PTSD, PSYCHOSOMATIC SEIZURE DISORDER; OCC EPISODE OF INCR HR & BLOOD PRESSURE, PROB R/T ANXIETY. 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 migraines History of Any Multi-Drug Resistant Organisms: None Reported Past Surgical History: Orthopedic Surgery, Tonsillectomy Additional Past Surgical History / Comment(s): RECONSTRUCTION LT SHOULDER X3. Past Anesthesia/Blood Transfusion Reactions: Motion Sickness Past Psychological History: ADD/ADHD, Anxiety, Depression, PTSD Smoking Status: Current some day smoker Past Alcohol Use History: None Reported Past Drug Use History: Marijuana - Past Family History Mother Family Medical History: Asthma, Congestive Heart Failure (CHF), COPD, GERD/Reflux Additional Family Medical History / Comment(s): PTSD, depression General Exam Limitations: no limitations General appearance: alert, in no apparent distress Head exam: Present: atraumatic, normocephalic, normal inspection Eye exam: Present: normal appearance, PERRL, EOMI. Absent: scleral icterus, conjunctival injection, periorbital swelling ENT exam: Present: normal exam, mucous membranes moist Neck exam: Present: normal inspection. Absent: tenderness, meningismus, lymphadenopathy Respiratory exam: Present: normal lung sounds bilaterally. Absent: respiratory distress, wheezes, rales, rhonchi, stridor Cardiovascular Exam: Present: regular rate, normal rhythm, normal heart sounds. Absent: systolic murmur, diastolic murmur, rubs, gallop, clicks GI/Abdominal exam: Present: soft, normal bowel sounds. Absent: distended, tenderness, guarding, rebound, rigid Extremities exam: Present: normal inspection, full ROM, normal capillary refill. Absent: tenderness, pedal edema, joint swelling, calf tenderness Neurological exam: Present: alert, oriented X3, CN II-XII intact Psychiatric exam: Present: normal affect, normal mood Skin exam: Present: warm, dry, intact, normal color. Absent: rash Course Vital Signs 10/24/20 14:20 Temperature 99.1 F Pulse Rate 94 Respiratory 16 Rate Blood Pressure 146/87 O2 Sat by Pulse 99 Oximetry - Reevaluation(s) Reevaluation #1: 10/24/20 15:57 Upon reevaluation patient stated that she was feeling better pain was controlled but she was still having aura type migraine symptoms. Medical Decision Making - Medical Decision Making 35-year-old female complaining of migraine-type headache, status post seizure last night. Saline lock, 1 L normal saline bolus, 4 mg Zofran, 1 mg of Dilaudid, 50 mg Benadryl ordered. Case discussed with Dr. Marie, was decided patient to discharge home with follow-up primary care. Disposition Clinical Impression: Migraine with aura, Headache, Nausea & vomiting Disposition: HOME SELF-CARE Condition: Stable Instructions (If sedation given, give patient instructions): Migraine Headache (ED), Acute Headache (DC) Additional Instructions: Please return to the Emergency Department if symptoms worsen or any other concerns. Follow-up primary care 1-2 days. Take [id number] pain medication as needed for conservative management. Increase oral fluid intake. Continue to follow-up with psychiatrist for medication maintenance. Is patient prescribed a controlled substance at d/c from ED?: No Referrals: India Vazquez MD [Primary Care Provider] - 1-2 days Time of Disposition: 15:58
[2020-10-24 16:24] VITALS: BP 136/78; PULSE 80; RESP 18; TEMP 98
== END 2020-10-24 16:28 | disposition home or self-care (01) ==
LOC: EC 14:11
DX: G43.109 Migraine with aura, not intractable, without status migrainosus (principal); F41.9 Anxiety disorder, unspecified; F32.9 Major depressive disorder, single episode, unspecified; F90.9 Attention-deficit hyperactivity disorder, unspecified type; F43.10 Post-traumatic stress disorder, unspecified; F17.200 Nicotine dependence, unspecified, uncomplicated; G40.909 Epilepsy, unspecified, not intractable, without status epilepticus; J45.909 Unspecified asthma, uncomplicated; Z79.82 Long term (current) use of aspirin; Z79.51 Long term (current) use of inhaled steroids; Z79.899 Other long term (current) drug therapy; Z88.2 Allergy status to sulfonamides; Z88.8 Allergy status to other drugs, medicaments and biological substances; Z91.048 Other nonmedicinal substance allergy status
CPT/HCPCS: 99283; 96374; 96375 ×2; J1200; J2405; J1170

== ENCOUNTER 2021-03-14 14:57 | Emergency (ER) | payer OTHER ==
[2021-03-14 15:07] VITALS: RESP 18; TEMP 98.8
[2021-03-14] MEDS ORDERED: KETOROLAC 15 MG/ML 1 ML VIAL IM STA (15:44)
--- NOTE | 2021-03-14 16:25 | XR ---
EXAMINATION TYPE: XR ankle complete RT DATE OF EXAM: 03/14/2021 COMPARISON: NONE HISTORY: Pain TECHNIQUE: 3 views of the right ankle are submitted with overlying cast material. COMPARISON: None. FINDINGS: Previously described distal tibial fracture is again noted. There is continued displacement of approximately 3 mm. Soft tissue swelling seen. IMPRESSION: As above
--- NOTE | 2021-03-14 16:28 | XR ---
EXAMINATION TYPE: XR tibia fibula RT DATE OF EXAM: 03/14/2021 CLINICAL HISTORY: pain TECHNIQUE: AP and lateral views of the right tibia and fibula are submitted. COMPARISON: None. FINDINGS: Overlying cast material obscures fine bony detail. There is a segmental proximal fibular di aphyseal fracture noted with displacement of 5.9 mm. Distal tibial diaphyseal fracture is noted oblique in appearance with displacement of 3.3 mm. Ankle m ortise appears to be intact. IMPRESSION: Tibial and fibular fractures as discussed.
--- NOTE | 2021-03-14 16:59 | ED ---
General Adult HPI - General Chief complaint: Fall Stated complaint: fall Time Seen by Provider: 03/14/21 15:20 Source: patient Mode of arrival: EMS Limitations: no limitations - History of Present Illness Initial comments: Patient is a 35-year-old female presenting to the emergency department via EMS with complaints of injuring her right leg again. She states that she fell yesterday was seen at [facility] early this morning with a fracture of her right tib-fib. She is in a splint. She states she was resting mostly day and went to get up and excellently fell again. She is worried that she hurt something. Per EMS, patient had a hard time staying awake in the EMS that they did not give her anything for pain. During questioning, she again was sleeping upon my arrival but easy arousable saying her name and she is answering questions appropriately. She states she has not filled her pain medicine prescription yet. He denies any other injuries from this fall today. Patient is extremely upset that she "was not able to have emergency surgery yesterday." She denies any chest pain or shortness of breath, no fevers. She has no further complaints. - Related Data Home Medications Medication Instructions Recorded Confirmed Fluticasone Nasal [place] [Flonase 1 spr EA NOSTRIL DAILY 08/20/17 03/14/21 Nasal [place]] Butalb/APAP/Caff 50-325-40Mg 1 tab PO Q4H PRN 03/14/21 03/14/21 [Fioricet 50-325-40] DULoxetine HCL [Cymbalta] 30 mg PO BID 03/14/21 03/14/21 Latanoprost/Pf [Latanoprost 0.005% 1 drop BOTH EYES HS 03/14/21 03/14/21 Eye Drop] Mirtazapine [Remeron] 30 mg PO HS 03/14/21 03/14/21 cloNIDine HCL 0.1 mg PO HS 03/14/21 03/14/21 Allergies Allergy/AdvReac Type Severity Reaction Status Date / Time adhesive Allergy Rash, Verified 03/14/21 16:10 PEELS SKIN OFF AND BLEEDS divalproex sodium Allergy Unknown Verified 03/14/21 16:10 [From Depakote] Sulfa (Sulfonamide Allergy Anaphylaxis Verified 03/14/21 16:10 Antibiotics) aripiprazole [From Abilify] AdvReac SUICIDAL Verified 03/14/21 16:10 THOUGHTS, CUT HERSELF Review of Systems ROS Statement: Those systems with pertinent positive or pertinent negative responses have been documented in the HPI. ROS Other: All systems not noted in ROS Statement are negative. Past Medical History Past Medical History: Asthma, CVA/TIA, Fibromyalgia, GERD/Reflux, GI Bleed, Renal Disease, Seizure Disorder, Skin Disorder Additional Past Medical History / Comment(s): "VOMITING BLOOD". HAS PTSD, PSYCHOSOMATIC SEIZURE DISORDER; OCC EPISODE OF INCR HR & BLOOD PRESSURE, PROB R/T ANXIETY. 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 migraines History of Any Multi-Drug Resistant Organisms: None Reported Past Surgical History: Orthopedic Surgery, Tonsillectomy Additional Past Surgical History / Comment(s): RECONSTRUCTION LT SHOULDER X3. Past Anesthesia/Blood Transfusion Reactions: Motion Sickness Past Psychological History: ADD/ADHD, Anxiety, Depression, PTSD Smoking Status: Current some day smoker Past Alcohol Use History: None Reported Past Drug Use History: Marijuana - Past Family History Mother Family Medical History: Asthma, Congestive Heart Failure (CHF), COPD, GERD/Reflux Additional Family Medical History / Comment(s): PTSD, depression General Exam - General Exam Comments Initial Comments: GENERAL: Patient is well-developed and well-nourished. Patient is nontoxic and in mild distress, patient is sleeping upon arrival to the room, arousable when I said her name, seems very fatigued. HEAD: Atraumatic, normocephalic. EYES: Pupils equal round and reactive to light, extraocular movements intact, sclera anicteric, conjunctiva are normal. Eyelids were unremarkable. NECK: Normal range of motion, supple without lymphadenopathy or JVD. She has no midline tenderness. LUNGS: Unlabored respirations. Breath sounds clear to auscultation bilaterally and equal. No wheezes rales or rhonchi. HEART: Regular rate and rhythm without murmurs, rubs or gallops. ABDOMEN: Soft, nontender, normoactive bowel sounds. No guarding, no rebound. No masses appreciated. MUSCULOSKELETAL: Patient has a posterior splint on her right lower leg, I did undo the wrapping to assess the leg, she can wiggle her toes, compartments are soft and compressible, she does have some swelling present. She is neurovascular intact. Pulses are equal and bilateral lower extremities. No clubbing or cyanosis. NEUROLOGICAL: Patient is alert and oriented x 3. Symmetrical smile. Normal speech. PSYCH: Normal mood, normal affect. SKIN: Warm, Dry, normal turgor, no rashes or lesions noted. Limitations: no limitations Course Vital Signs 03/14/21 03/14/21 14:58 18:25 Temperature 98.8 F Pulse Rate 85 74 Respiratory 18 18 Rate Blood Pressure 133/86 121/86 O2 Sat by Pulse 98 98 Oximetry Medical Decision Making - Medical Decision Making Patient is a 35-year-old female here via EMS after she had another slip and fall today on her right leg. Patient had a slip and fall yesterday, was seen at [facility], diagnosed with a distal tibia and proximal fibula fracture, she is in a posterior splint and was supposed to follow up with orthopedics today. She was unable to get an appointment today. I did redo her tib-fib x-rays, her fractures looks stable. I did assess her leg, compartments are soft and compressible, she has normal pulses, no signs of compartment syndrome. I spoke with Dr. Corcoran who is agreeable to see the patient Friday morning. I gave patient one tablet of [place] and a shot of Toradol today in the ER. She already has prescriptions for pain medications from [facility]. Mother will get those filled today. She will continue with elevation, ice to the leg. Non-weight bearings right leg, she has crutches and a walker at home to use. She is stable for discharge with the mother. Mother and patient are in agreement with this plan of care. Case discussed with Dr. Batista. Disposition Clinical Impression: Fracture of right tibia and fibula, Fall Disposition: HOME SELF-CARE Condition: Stable Instructions (If sedation given, give patient instructions): Leg Fracture (ED) Additional Instructions: Please return to the Emergency Department if symptoms worsen or any other concerns. Elevate your leg above the heart level throughout the day, apply ice on top of the splint. Keep splint in place, nonweightbearing on the right lower leg. Use your crutches or walker. Take pain medication as already prescribed. Follow up with orthopedics as discussed on Friday. Is patient prescribed a controlled substance at d/c from ED?: No Referrals: India Vazquez MD [Primary Care Provider] - 1-2 days Mitch Corcoran DO [Doctor of Osteopathic Medicine] - 1-2 days Time of Disposition: 18:48
[2021-03-14 18:26] VITALS: BP 121/86; PULSE 74
[2021-03-14] MEDS ORDERED: HYDROcodone/APAP 7.5-325MG 1 EACH TAB PO ONE (18:46)
== END 2021-03-14 19:18 | disposition home or self-care (01) ==
LOC: EC 14:57
DX: S82.301A Unspecified fracture of lower end of right tibia, initial encounter for closed fracture (principal); S82.401A Unspecified fracture of shaft of right fibula, initial encounter for closed fracture; J45.909 Unspecified asthma, uncomplicated; G40.909 Epilepsy, unspecified, not intractable, without status epilepticus; K21.9 Gastro-esophageal reflux disease without esophagitis; M79.7 Fibromyalgia; F32.9 Major depressive disorder, single episode, unspecified; F41.9 Anxiety disorder, unspecified; F17.200 Nicotine dependence, unspecified, uncomplicated; F12.90 Cannabis use, unspecified, uncomplicated; Z82.49 Family history of ischemic heart disease and other diseases of the circulatory system; Z79.899 Other long term (current) drug therapy; Z88.2 Allergy status to sulfonamides; Z88.8 Allergy status to other drugs, medicaments and biological substances; W01.0XXA Fall on same level from slipping, tripping and stumbling without subsequent striking against object, initial encounter
CPT/HCPCS: 73590; 73610; 96372; 99284; J1885

== ENCOUNTER 2021-03-21 14:29 | Day surgery (SDC) | payer OTHER ==
[2021-03-19 12:10] VITALS: BMI 23.3
[~2021-03-21 14:29] MED LIST: ceFAZolin 1,000 MG in SODIUM CHLORIDE 0.9% IRRIGATIO 1,000 ML IRRIGATION PRN
[2021-03-21] MEDS ORDERED: ONDANSETRON 4 MG/2 ML VIAL ONE (15:08)
[2021-03-21] MEDS ORDERED: LACTATED RINGERS 1,000 ML IV ONE (15:12)
[2021-03-21] MEDS ORDERED: DEXAMETHASONE SOD PHOSPHATE 4 MG/ML 1 ML VIAL IVP ONE (15:13)
[2021-03-21] MEDS ORDERED: LIDOCAINE 1% (10MG/ML) FOR IV START INTRADERMA ONE (15:15)
[2021-03-21] MEDS ORDERED: MIDAZOLAM 2 MG/2 ML VIAL IVP ONE (15:52)
[2021-03-21] MEDS ORDERED: fentaNYL (PF) 50 MCG/ML 2 ML AMP ONE (16:23)
[2021-03-21] MEDS ORDERED: PROPOFOL 10 MG/ML 20 ML VIAL IV ONE (16:23)
[2021-03-21] MEDS ORDERED: SUCCINYLCHOLINE CHLORIDE 100 MG/5 ML SYR IV ONE (16:23)
[2021-03-21] MEDS ORDERED: MIDAZOLAM 2 MG/2 ML VIAL ONE (16:23)
[2021-03-21] MEDS ORDERED: LIDOCAINE 1% INJ 10MG/ML (20 ML MDV) ONE (16:23)
[2021-03-21] MEDS ORDERED: HYDROmorphone (PF) 1 MG/ML ONE (16:23)
[2021-03-21] MEDS ORDERED: BENZOCAINE/MENTHOL LOZENG 1 EACH LOZENGE MUCOUS MEM PRN (18:44)
[2021-03-21] MEDS ORDERED: MAGNESIUM HYDROXIDE 2,400 MG/10 ML CUP PO PRN (18:44)
[2021-03-21] MEDS ORDERED: HYDROmorphone 0.5 MG/0.5 ML SYRINGE IVP PRN (18:44)
[2021-03-21] MEDS ORDERED: NALOXONE 0.4 MG/ML 1 ML VIAL IV PRN (18:45)
[2021-03-21] MEDS ORDERED: ONDANSETRON 4 MG/2 ML VIAL IVP PRN (18:45)
--- NOTE | 2021-03-21 18:46 | XR ---
EXAMINATION TYPE: XR tibia fibula RT DATE OF EXAM: 03/21/2021 COMPARISON: NONE HISTORY: Surgery TECHNIQUE: 6 fluoroscopic images were obtained. There is 2 minutes and 54 seconds of fluoroscopy time . FINDINGS: There is placement of intramedullary beth in the tibia fixing the fracture of the distal sha ft. Components appear in good position. IMPRESSION: No complicating process seen.
--- NOTE | 2021-03-21 19:00 | P.OP ---
Date of Procedure: 03/21/21 Preoperative Diagnosis: Right tibia shaft fracture and right fibula fracture, acute traumatic due to fall Postoperative Diagnosis: Right tibia shaft fracture and right fibula fracture, acute traumatic due to fall Anesthesia: GETA Pathology: other (Tibial reamings to pathology) Condition: stable Disposition: PACU Description of Procedure: Preoperative diagnosis: Right tibia shaft fracture and right fibula fracture, acute traumatic due to fall Postoperative diagnosis: Right tibia shaft fracture and right fibula fracture, acute traumatic due to fall Procedure: Insertion of right tibia intramedullary beth Use of fluoroscopic guidance Closed reduction Surgeon: Dr. Nilo Valencia.: Jatin Gresham who is present that the entire the case persistence during positioning dissection exposure placement of hardware and closure Anesthesia: Gen. Estimated blood loss: Approximately 50 mL Components implanted: [employer] tibial beth size 36 x 10 with 2 proximal and 2 distal locking screws Tourniquet: Approximately 90 minutes Disposition: To recovery room in good stable condition Operative indications The patient sustained a injury and suffered a right tibia shaft and fibula fracture which were displaced and angulated. She had sustained a fall and presented to the emergency room where she was found have tibial shaft fracture and possible fibula fracture. We were involved in the case in regard to the tibia and fibula fracture. After evaluation it was determined that they would be a candidate for right tibia internal fixation and stabilization via surgical intervention. I felt that intramedullary rodding of the right tibia would give excellent stability and that the proximal fibula could do well with expectant management. This would give them the best chance of mobilization and ambulation. We discussed the range of treatment options from conservative to surgical. They elected proceed with surgical intervention. We answered their questions to the best of our ability healing which they can understand. They signed an informed consent. Operative summary After obtaining informed consent evaluation by anesthesia, preoperative evaluation and clearance for medical service, the patient was identified and prepped [place] area and the surgical site was marked. There brought to the operating room where the given appropriate anesthesia by the anesthesia department in standard fashion without any complications. Once the anesthesia was established we were able to position the patient. The patient was placed supine on the operating room table and carefully pad any bony prominences and pressure points keeping her head and neck in good neutral alignment and position. She was sedated and intubated by anesthesia in standard fashion without A, occasions. Once her ears airway and C-spine were secured her right lower extremity had a pad placed behind her gluteus and a nonsterile tourniquet placed over right proximal thigh. The splint was taken down and there is obvious instability at her tibial shaft. Imaging was taken show fracture. The right lower extremity was then prepped and draped in normal standard fashion. An appropriate keystone protocol and timeout was performed. We were able to proceed with surgery. The leg was elevated for approximately 2 minutes and tourniquet was inflated to 250 mmHg was utilized to total of approximately 90 minutes. I was able to establish the appropriate space at her anterior aspect of her patella to tibial tubercle and I made a longitudinal incision over patellar tendon dissected down over the peritenon which was split with a new blade the. The patellar tendon was split along line with its fibers to gain access to the proximal tibia. As able establish a starting guidepin at the anterior superior aspect of the proximal tibia and with C-arm guidance I was able place the guidepin into the proximal tibia. Protecting the soft tissue structures as able to then over reamed to establish my appropriate starting point area with this accomplished using C-arm guidance I then placed a guide beth down into the tibial shaft. The fracture was held in closed reduction with excellent alignment and position and the guide beth was able to be passed across the fracture site into the distal tibia. This was confirmed with C-arm guidance. With this intact we then did sequential reaming protecting soft tissue structures and patellar tendon. We reamed up to 11.5 mm reamer. This was done while holding the fracture in excellent alignment and position. With this accomplished we did appropriate measurements and chose the appropriate sized beth. We used a 36 x 10 mm tibial beth from [employer]. The beth was placed over the guide beth into the starting point down the tibial shaft and across the fracture site into the distal tibia. With excellent alignment position of the fracture itself. The guide beth was able to be removed. Using appropriate jig and guide we were able to establish to proximal locking screws in good alignment and good position with excellent bony purchase. Distally we used a freehand technique to establish to medial to lateral locking screws. This was done with freehand technique using C-arm fluoroscopy. The screws had excellent alignment and position and excellent bony purchase. We Alignment and position of the fracture and excellent fixation and stabilization. All the wounds were copiously irrigated and suctioned dry. We will proceed with closure. The small stab incisions for the screws were closed with 4-0 Vicryl and blue. The peritenon was closed with 4-0 Vicryl subcutaneous tissue was closed with 2-0 Vicryl and subcuticular tissue closed with 4-0 Vicryl at the knee incision. It was further sealed with glue. The tourniquet was dropped approximately 90 minutes she had good revascularization at her extremity and good pink in her foot and toes. The wounds were dressed with Opteform dressing and bulky John wrap. The patient was woken up by anesthesia extubated and transferred back to her stretcher and recovery room in good stable condition where she will be admitted for prophylactic antibiotics therapy training and management. Once stable to patient was transferred back to the postanesthesia care unit to be readmitted for pain control and DVT prophylaxis medical management and monitoring and mobilization we will continue follow patient closely throughout their postoperative course.
[2021-03-21] MEDS ORDERED: LORazepam 2 MG/ML INJ ONE (19:07)
[2021-03-21] MEDS ORDERED: LORazepam 2 MG/ML INJ IV ONE ×2 (19:09→19:13)
[2021-03-21] MEDS ORDERED: HYDROmorphone 0.5 MG/0.5 ML SYRINGE IVP ONE (19:18)
[2021-03-21] MEDS: DULoxetine HCL 30 MG CAPSULE.DR PO SCH (20:20)
[2021-03-21] MEDS: ASPIRIN 325 MG TAB PO SCH (20:20)
[2021-03-21] MEDS: HYDROcodone/APAP 5-325MG 1 EACH TAB PO PRN ×2 (20:20→23:58)
[2021-03-21] MEDS: LORATADINE 10 MG TAB PO SCH (20:20)
[2021-03-21] MEDS: SODIUM CHLORIDE 0.9% 1,000 ML IV SCH (20:23)
[2021-03-21] MEDS ORDERED: LORazepam 2 MG/ML INJ IV PRN (20:39)
[2021-03-21] MEDS ORDERED: MIRTAZAPINE 15 MG TAB PO SCH (21:00)
[2021-03-21] MEDS ORDERED: cloNIDine HCL 0.1 MG TAB PO SCH (21:00)
[2021-03-21 21:30] LABS: Basophils % (A) 0 %; Eosinophils % (A) 0 %; HCT 34.4 % (34.0-46.0); HGB 11.2 gm/dL (11.4-16.0); Lymphocytes # (A) 0.6 k/uL (1.0-4.8); Lymphocytes % (A) 8 %; MCH 29.7 pg (25.0-35.0); MCHC 32.5 g/dL (31.0-37.0); MCV 91.4 fL (80.0-100.0); Mean Platelet Volume 7.4; Monocytes # (A) 0.1 k/uL (0-1.0); Monocytes % (A) 2 %; Neutrophils # (A) 6.7 k/uL (1.3-7.7); Neutrophils % (A) 89 %; Platelet Count 231 k/uL (150-450); RBC 3.76 m/uL (3.80-5.40); RDW 14.4 % (11.5-15.5); WBC 7.5 k/uL (3.8-10.6)
[2021-03-21] MEDS: HYDROmorphone 1 MG/ML 1 ML SYRINGE IVP PRN (22:03)
[2021-03-22] MEDS: HYDROmorphone 1 MG/ML 1 ML SYRINGE IVP PRN ×3 (02:20→10:12)
[2021-03-22] MEDS: HYDROcodone/APAP 5-325MG 1 EACH TAB PO PRN ×4 (04:24→14:51)
[2021-03-22 07:33] VITALS: BP 143/83; PULSE 79; RESP 18; TEMP 98.9
--- NOTE | 2021-03-22 07:53 | FL ---
Fluoroscopy History: RT TIB FIB ORIF ORIF OF RT TIB FIB FL TIME 2 MINS 54 SECONDS 6 IMAGES SAVED
[2021-03-22] MEDS: ASPIRIN 325 MG TAB PO SCH (08:06)
[2021-03-22] MEDS: LORATADINE 10 MG TAB PO SCH (08:06)
[2021-03-22] MEDS: DULoxetine HCL 30 MG CAPSULE.DR PO SCH (08:08)
[2021-03-22] MEDS ORDERED: SENNOSIDES-DOCUSATE SODIUM 1 EACH TAB PO SCH (09:00)
[2021-03-22] MEDS: SODIUM CHLORIDE 0.9% 1,000 ML IV SCH (11:41)
== END 2021-03-22 14:58 | disposition home or self-care (01) ==
LOC: OR 14:29 → 4SSUR 18:59 → OR 03-22 14:58
PROVIDERS: ATTEND Orthopaedic Surgery Orthopaedic Surgery of the Spine
DX: S82.201A Unspecified fracture of shaft of right tibia, initial encounter for closed fracture (principal); S82.401A Unspecified fracture of shaft of right fibula, initial encounter for closed fracture; W19.XXXA Unspecified fall, initial encounter; R00.0 Tachycardia, unspecified; J45.909 Unspecified asthma, uncomplicated; Z98.890 Other specified postprocedural states; Z72.0 Tobacco use; G40.909 Epilepsy, unspecified, not intractable, without status epilepticus; Z97.3 Presence of spectacles and contact lenses; Z79.891 Long term (current) use of opiate analgesic; Z79.899 Other long term (current) drug therapy; Z88.8 Allergy status to other drugs, medicaments and biological substances; Z88.2 Allergy status to sulfonamides; Z91.09 Other allergy status, other than to drugs and biological substances
CPT/HCPCS: 97161; 97165; 81025; 88304; 85025; 88311; 73590; 27759; C1713; J2250; J2060; J1100; J0690 ×2; J2405; J2001; J3010; J1170 ×3; J0330; J2704

== ENCOUNTER 2021-11-01 20:09 | Emergency (ER) | payer OTHER ==
[2021-11-01 20:32] LABS: Basophils % (A) 1 %; Eosinophils # (A) 0.2 k/uL (0-0.7); Eosinophils % (A) 2 %; HCT 36.2 % (34.0-46.0); Lymphocytes # (A) 2.1 k/uL (1.0-4.8); Lymphocytes % (A) 27 %; MCH 29.7 pg (25.0-35.0); MCHC 33.1 g/dL (31.0-37.0); MCV 89.6 fL (80.0-100.0); Monocytes # (A) 0.3 k/uL (0-1.0); Monocytes % (A) 3 %; Neutrophils # (A) 5.1 k/uL (1.3-7.7); Neutrophils % (A) 65 %; Platelet Count 238 k/uL (150-450); RBC 4.03 m/uL (3.80-5.40); RDW 15.1 % (11.5-15.5); WBC 7.8 k/uL (3.8-10.6)
[2021-11-01 20:42] LABS: Calcium 8.6 mg/dL (8.4-10.2); Potassium 3.3 mmol/L (3.5-5.1); Total Bilirubin 0.4 mg/dL (0.2-1.3); Total Protein 6.5 g/dL (6.3-8.2)
[2021-11-01 21:15] LABS: Appearance,Urine Clear (Clear); Bilirubin,Urine Negative (Negative); Blood,Urine Negative (Negative); Color,Urine Yellow; Glucose,Urine (UA) Negative (Negative); Ketones,Urine Negative (Negative); Leukocyte Esterase,Urine Negative (Negative); Nitrite,Urine Negative (Negative); Protein,Urine Trace (Negative); Specific Gravity,Urine 1.027 (1.001-1.035); Urobilinogen,Urine <2.0 mg/dL (<2.0)
[2021-11-01] MEDS ORDERED: ONDANSETRON 4 MG/2 ML VIAL IVP STA (21:19)
[2021-11-01] MEDS ORDERED: SODIUM CHLORIDE 0.9% 1,000 ML IV STA (21:19)
[2021-11-01] MEDS ORDERED: MORPHINE SULFATE 4 MG/ML SYRINGE IV STA (21:19)
--- NOTE | 2021-11-01 23:04 | XR ---
EXAMINATION TYPE: XR abdomen acute w cxr DATE OF EXAM: 11/01/2021 COMPARISON: NONE HISTORY: Right upper quadrant pain TECHNIQUE: 4 views FINDINGS: Heart and mediastinum are normal. Lungs are clear. Diaphragm is normal. Bony thorax is inta ct. Bowel gas pattern is normal. There is no sign of intestinal obstruction or pneumoperitoneum. Fecal pa ttern is normal. There is no evidence of a mass. There are no pathologic calcifications over the kidn eys. There are multiple phleboliths in the pelvis. Distal ureteral calculus not excluded. IMPRESSION: Normal chest. Nonacute abdomen.
[2021-11-01] MEDS ORDERED: POTASSIUM CHLORIDE ER 20 MEQ TAB.ER PO STA (23:34)
--- NOTE | 2021-11-01 23:37 | ED ---
Abdominal Pain HPI - General Chief Complaint: Abdominal Pain Stated Complaint: Nausea,Fever Time Seen by Provider: 11/01/21 21:13 Source: patient, RN notes reviewed Mode of arrival: ambulatory Limitations: no limitations - History of Present Illness Initial Comments: Patient comes ER complaining of upper abdominal pain which has been going on for a few days. Patient states is worse with eating. She is pointing to the epigastrium spot of most pain. Has had a subjective fever. No lower abdominal pain. Has had some diarrhea. No chest pain or shortness of breath. No headache, no changes in vision or hearing, no sore throat or difficulty with speech, no neck pain, no chest pain or shortness of breath, no changes in urination no chance of , no numbness or tingling, no extremity pain, no skin rashes or lesions. MD Complaint: abdominal pain - Related Data Home Medications Medication Instructions Recorded Confirmed Fluticasone Nasal [place] [Flonase 1 spr EA NOSTRIL DAILY 08/20/17 03/19/21 Nasal [place]] Butalb/APAP/Caff 50-325-40Mg 1 tab PO Q4H PRN 03/14/21 03/19/21 [Fioricet 50-325-40] DULoxetine HCL [Cymbalta] 30 mg PO BID 03/14/21 03/19/21 Latanoprost/Pf [Latanoprost 0.005% 1 drop BOTH EYES HS 03/14/21 03/19/21 Eye Drop] Mirtazapine [Remeron] 30 mg PO HS 03/14/21 03/19/21 cloNIDine HCL 0.1 mg PO HS 03/14/21 03/19/21 Cetirizine HCl [Zyrtec] 10 mg PO DAILY 03/19/21 03/19/21 HYDROcodone/APAP 7.5-325MG [Tiona 1 tab PO Q6HR PRN 03/19/21 03/19/21 7.5-325] Previous Rx's Medication Instructions Recorded HYDROcodone/APAP 7.5-325MG [[place] 1 - 2 each PO Q6HR PRN #28 tab 03/22/21 7.5-325] Dicyclomine [Bentyl] 20 mg PO QID PRN #24 tablet 11/02/21 Ondansetron [Zofran ODT] 4 mg PO Q8HR #20 tab 11/02/21 Allergies Allergy/AdvReac Type Severity Reaction Status Date / Time adhesive Allergy Rash, Verified 11/01/21 20:16 PEELS SKIN OFF AND BLEEDS divalproex sodium Allergy Hallucinati Verified 11/01/21 20:16 [From Depakote] ons Sulfa (Sulfonamide Allergy Anaphylaxis Verified 11/01/21 20:16 Antibiotics) aripiprazole [From Abilify] AdvReac SUICIDAL Verified 11/01/21 20:16 THOUGHTS, CUT HERSELF Review of Systems ROS Statement: Those systems with pertinent positive or pertinent negative responses have been documented in the HPI. ROS Other: All systems not noted in ROS Statement are negative. Past Medical History Past Medical History: Asthma, Eye Disorder, Fibromyalgia, GERD/Reflux, GI Bleed, Seizure Disorder, Skin Disorder Additional Past Medical History / Comment(s): HX VOMITING BLOOD. PSYCHOSOMATIC SEIZURE DISORDER, OCCASIONAL EPISODES OF INCREASED HR & BLOOD PRESSURE - Paroxymal Tachycardia, R/T ANXIETY. HX OCULAR STROKE LEFTT EYE, WITH DECREASED V ISION, migraines, bilateral glaucoma. History of Any Multi-Drug Resistant Organisms: None Reported Past Surgical History: Orthopedic Surgery Additional Past Surgical History / Comment(s): RECONSTRUCTION LT SHOULDER X3. Past Anesthesia/Blood Transfusion Reactions: No Reported Reaction, Motion Sickness Past Psychological History: ADD/ADHD, Anxiety, Depression, PTSD Smoking Status: Former smoker, Vaper Past Alcohol Use History: None Reported Past Drug Use History: Marijuana - Past Family History Mother Family Medical History: Asthma, Congestive Heart Failure (CHF), COPD, GERD/Reflux, Pulmonary Embolus Additional Family Medical History / Comment(s): PTSD, depression. General Exam - General Exam Comments Initial Comments: Patient does not appear to be ill or toxic, she is in distress secondary to abdominal pain. Limitations: no limitations General appearance: alert, in no apparent distress Head exam: Present: atraumatic, normocephalic, normal inspection Eye exam: Present: normal appearance, PERRL, EOMI. Absent: scleral icterus, conjunctival injection, periorbital swelling ENT exam: Present: normal exam, mucous membranes moist Neck exam: Present: normal inspection. Absent: tenderness, meningismus, lymphadenopathy Respiratory exam: Present: normal lung sounds bilaterally. Absent: respiratory distress, wheezes, rales, rhonchi, stridor Cardiovascular Exam: Present: regular rate, normal rhythm, normal heart sounds. Absent: systolic murmur, diastolic murmur, rubs, gallop, clicks GI/Abdominal exam: Present: soft, tenderness, guarding, normal bowel sounds, hypoactive bowel sounds, other (Minimal guarding in the epigastrium. No definitive Barrios sign. Tender in the epigastrium and to a lesser extent the b ilateral upper quadrants.). Absent: distended, rebound, rigid Extremities exam: Present: normal inspection, full ROM, normal capillary refill. Absent: tenderness, pedal edema, joint swelling, calf tenderness Back exam: Present: normal inspection Neurological exam: Present: alert, oriented X3, CN II-XII intact Psychiatric exam: Present: normal affect, normal mood Skin exam: Present: warm, dry, intact, normal color. Absent: rash Course Vital Signs 11/01/21 20:13 Temperature 99.1 F Pulse Rate 88 Respiratory 16 Rate Blood Pressure 117/70 O2 Sat by Pulse 98 Oximetry - Reevaluation(s) Reevaluation #1: 11/02/21 00:25 Medical record is reviewed Symptoms are improved here in the emergency department, patient able to hold on fluids here in the emergency department. Repeat abdominal examination is essentially benign. Patient is informed of results and questions answered Patient in no distress Medical Decision Making - Medical Decision Making Certainly the patient symptomology could be related to gastritis, pancreatitis, biliary etiology, does not fit the clinical picture of cardiopulmonary disease. No right lower quadrant tenderness. Other intra-abdominal first inflammatory et iologies not ruled out on likely. Appear to be consistent with appendicitis or pelvic etiology. She reevaluated prior to discharge and is much improved. Able to hold down fluids. Repeat abdominal examination is essentially benign. Patient has no tenderness in the right lower quadrant. I did discuss the possibility of viral versus bacterial etiology with the patient. This is likely viral enteritis. We discussed the possibility that this could still be related to gallbladder. We discussed the likelihood of etiology such as appendicitis. Computed tomography scan was deferred shared decision-making. Patient will treat conservatively with anti-emetics, clear fluids, and follow-up. I told her to return immediately if any symptoms recur or worsen. Patient was understanding. Patient was told to return to the ER for any signs or symptoms worsen. Told to return immediately if any other problems arise. All questions answered. Treatment plan discussed. Patient in agreement Every effort has been made to ensure accuracy of this dictation. However, due to the limitations of electronic medical records and dictation devices, errors in charting still occur. - Lab Data Result diagrams: 11/01/21 20:24 11/01/21 20:24 Lab Results 11/01/21 11/01/21 11/01/21 Range/Units 20:24 20:24 21:00 WBC 7.8 (3.8-10.6) k/uL RBC 4.03 (3.80-5.40) m/uL Hgb 12.0 (11.4-16.0) gm/dL Hct 36.2 (34.0-46.0) % MCV 89.6 (80.0-100.0) fL MCH 29.7 (25.0-35.0) pg MCHC 33.1 (31.0-37.0) g/dL RDW 15.1 (11.5-15.5) % Plt Count 238 (150-450) k/uL MPV 8.0 Neutrophils % 65 % Lymphocytes % 27 % Monocytes % 3 % Eosinophils % 2 % Basophils % 1 % Neutrophils # 5.1 (1.3-7.7) k/uL Lymphocytes # 2.1 (1.0-4.8) k/uL Monocytes # 0.3 (0-1.0) k/uL Eosinophils # 0.2 (0-0.7) k/uL Basophils # 0.0 (0-0.2) k/uL Sodium 137 (137-145) mmol/L Potassium 3.3 L (3.5-5.1) mmol/L Chloride 102 (98-107) mmol/L Carbon Dioxide 25 (22-30) mmol/L Anion Gap 10 mmol/L BUN 11 (7-17) mg/dL Creatinine 1.05 H (0.52-1.04) mg/dL Est GFR (CKD-EPI)AfAm 80 (>60 ml/min/1.73 sqM) Est GFR (CKD-EPI)NonAf 69 (>60 ml/min/1.73 sqM) Glucose 83 (74-99) mg/dL Plasma Lactic Acid Perfecto (0.7-2.0) mmol/L Calcium 8.6 (8.4-10.2) mg/dL Total Bilirubin 0.4 (0.2-1.3) mg/dL AST 31 (14-36) U/L ALT 30 (4-34) U/L Alkaline Phosphatase 82 (38-126) U/L Total Protein 6.5 (6.3-8.2) g/dL Albumin 4.0 (3.5-5.0) g/dL Amylase 55 (30-110) U/L Lipase 25 (23-300) U/L Urine Color Yellow Urine Appearance Clear (Clear) Urine pH 6.0 (5.0-8.0) Ur Specific [place] 1.027 (1.001-1.035) Urine Protein Trace H (Negative) Urine Glucose (UA) Negative (Negative) Urine Ketones Negative (Negative) Urine Blood Negative (Negative) Urine Nitrite Negative (Negative) Urine Bilirubin Negative (Negative) Urine Urobilinogen <2.0 (<2.0) mg/dL Ur Leukocyte Esterase Negative (Negative) Urine HCG, Qual (Not Detectd) 11/01/21 11/01/21 Range/Units 21:00 22:54 WBC (3.8-10.6) k/uL RBC (3.80-5.40) m/uL Hgb (11.4-16.0) gm/dL Hct (34.0-46.0) % MCV (80.0-100.0) fL MCH (25.0-35.0) pg MCHC (31.0-37.0) g/dL RDW (11.5-15.5) % Plt Count (150-450) k/uL MPV Neutrophils % % Lymphocytes % % Monocytes % % Eosinophils % % Basophils % % Neutrophils # (1.3-7.7) k/uL Lymphocytes # (1.0-4.8) k/uL Monocytes # (0-1.0) k/uL Eosinophils # (0-0.7) k/uL Basophils # (0-0.2) k/uL Sodium (137-145) mmol/L Potassium (3.5-5.1) mmol/L Chloride (98-107) mmol/L Carbon Dioxide (22-30) mmol/L Anion Gap mmol/L BUN (7-17) mg/dL Creatinine (0.52-1.04) mg/dL Est GFR (CKD-EPI)AfAm (>60 ml/min/1.73 sqM) Est GFR (CKD-EPI)NonAf (>60 ml/min/1.73 sqM) Glucose (74-99) mg/dL Plasma Lactic Acid [place] <0.5 L (0.7-2.0) mmol/L Calcium (8.4-10.2) mg/dL Total Bilirubin (0.2-1.3) mg/dL AST (14-36) U/L ALT (4-34) U/L Alkaline Phosphatase (38-126) U/L Total Protein (6.3-8.2) g/dL Albumin (3.5-5.0) g/dL Amylase (30-110) U/L Lipase (23-300) U/L Urine Color Urine Appearance (Clear) Urine pH (5.0-8.0) Ur Specific [place] (1.001-1.035) Urine Protein (Negative) Urine Glucose (UA) (Negative) Urine Ketones (Negative) Urine Blood (Negative) Urine Nitrite (Negative) Urine Bilirubin (Negative) Urine Urobilinogen (<2.0) mg/dL Ur Leukocyte Esterase (Negative) Urine HCG, Qual Not Detected (Not Detectd) Disposition Clinical Impression: Nausea vomiting and diarrhea, Abdominal pain, Acute gastritis without bleeding Disposition: HOME SELF-CARE Condition: Good Instructions (If sedation given, give patient instructions): Abdominal Pain (ED), Gastritis (ED), Acute Diarrhea (ED) Additional Instructions: Clear liquid diet for 24 hours. Follow-up with your primary care physician on Friday. Call tomorrow for the appointment. Follow-up with your regular physician as directed. Return to the ER immediately if any symptoms worsen, new symptoms arise, or any other problems develop. Prescriptions: Dicyclomine [Bentyl] 20 mg PO QID PRN #24 tablet PRN Reason: Pain Ondansetron [Zofran ODT] 4 mg PO Q8HR #20 tab Is patient prescribed a controlled substance at d/c from ED?: No Referrals: Nicki Lisa MD [Primary Care Provider] - 11/05/21 Time of Disposition: 00:28
--- NOTE | 2021-11-01 23:40 | US ---
EXAMINATION TYPE: US abdomen limited DATE OF EXAM: 11/01/2021 COMPARISON: CT 2018 CLINICAL HISTORY: Upper abdominal pain. Patient complains of epigastric pain for 5 days. EXAM MEASUREMENTS: Liver Length: 17.6 cm Gallbladder Wall: 0.22 cm CBD: 0.52 cm Right Kidney: 11.5 x 4.0 x 5.0 cm Pancreas: Appears wnl Liver: Appears wnl Gallbladder: 11.2 cm in length Evidence for sonographic Barrios's sign: No CBD: wnl Right Kidney: No hydronephrosis or masses seen IMPRESSION: No gallstones or dilated ducts.
[2021-11-02] MEDS ORDERED: DICYCLOMINE 20 MG TAB PO STA (00:25)
[2021-11-02] MEDS ORDERED: ONDANSETRON 4 MG/2 ML VIAL IVP STA (00:25)
[2021-11-02 03:56] VITALS: BP 121/78; PULSE 78; RESP 18; TEMP 98.7
== END 2021-11-02 01:02 | disposition home or self-care (01) ==
LOC: EC 20:09
DX: K29.00 Acute gastritis without bleeding (principal); J45.909 Unspecified asthma, uncomplicated; K21.9 Gastro-esophageal reflux disease without esophagitis; Z87.891 Personal history of nicotine dependence; Z91.048 Other nonmedicinal substance allergy status; Z88.8 Allergy status to other drugs, medicaments and biological substances; Z88.1 Allergy status to other antibiotic agents; Z88.2 Allergy status to sulfonamides
CPT/HCPCS: 36415; 80053; 82150; 83605; 83690; 85025; 81003; 81025; 87040; 74022; 76705; 99284; 96374; 96376; 96361; J2270; J2405 ×2; 96375

== ENCOUNTER 2022-06-01 23:57 | Inpatient (IN) | payer OTHER ==
[2022-06-02] MEDS ORDERED: SODIUM CHLORIDE 0.9% 1,000 ML IV STA (00:25)
[2022-06-02] MEDS ORDERED: LORazepam 2 MG/ML INJ IV STA (00:25)
--- NOTE | 2022-06-02 00:26 | ED ---
Seizure HPI - General Chief Complaint: Seizure Stated Complaint: Seizure Time Seen by Provider: 06/02/22 00:24 Source: EMS, RN notes reviewed, old records reviewed Mode of arrival: EMS Limitations: altered mental status - History of Present Illness Initial Comments: This is a 36-year-old female to the emergency department for evaluation. History of seizures she is not currently on Antiseizure medications. Patient did take Tegretol. Patient seizures appear to be stress-induced. Tonic-clonic in nature and she is currently postictal MD Complaint: seizure, loss of consciousness, shaking -: hour(s) Description of Episode: loss of consciousness, tonic-clonic movement -: second(s) Witnessed: yes - by bystander Trauma: No Seizure History: known seizure disorder, history of non-compliance with treatment Place: home Possible Precipitating Event: none Associated Symptoms: chest pain Treatments Prior to Arrival: none - Related Data Home Medications Medication Instructions Recorded Confirmed Fluticasone Nasal [place] [Flonase 1 spr EA NOSTRIL DAILY PRN 08/20/17 06/02/22 Nasal [place]] Butalb/APAP/Caff 50-325-40Mg 1 tab PO Q4H PRN 03/14/21 06/02/22 [Fioricet 50-325-40] DULoxetine HCL [Cymbalta] 30 mg PO BID 03/14/21 06/02/22 Latanoprost/Pf [Latanoprost 0.005% 1 drop BOTH EYES HS 03/14/21 06/02/22 Eye Drop] cloNIDine HCL 0.1 mg PO HS 03/14/21 06/02/22 Cetirizine HCl [Zyrtec] 10 mg PO DAILY PRN 03/19/21 06/02/22 Previous Rx's Medication Instructions Recorded Dicyclomine [Bentyl] 20 mg PO QID PRN #24 tablet 11/02/21 Allergies Allergy/AdvReac Type Severity Reaction Status Date / Time adhesive Allergy Rash, Verified 06/02/22 12:12 PEELS SKIN OFF AND BLEEDS divalproex sodium Allergy Hallucinati Verified 06/02/22 12:12 [From Depakote] ons Sulfa (Sulfonamide Allergy Anaphylaxis Verified 06/02/22 12:12 Antibiotics) aripiprazole [From Abilify] AdvReac SUICIDAL Verified 10/02/22 12:12 THOUGHTS, CUT HERSELF Review of Systems ROS Statement: Those systems with pertinent positive or pertinent negative responses have been documented in the HPI. ROS Other: All systems not noted in ROS Statement are negative. Past Medical History Past Medical History: Asthma, Eye Disorder, Fibromyalgia, GERD/Reflux, GI Bleed, Seizure Disorder, Skin Disorder Additional Past Medical History / Comment(s): HX VOMITING BLOOD. PSYCHOSOMATIC SEIZURE DISORDER, OCCASIONAL EPISODES OF INCREASED HR & BLOOD PRESSURE - Paroxymal Tachycardia, R/T ANXIETY. HX OCULAR STROKE LEFTT EYE, WITH DECREASED VISION, migraines, bilateral glaucoma. History of Any Multi-Drug Resistant Organisms: None Reported Past Surgical History: Orthopedic Surgery Additional Past Surgical History / Comment(s): RECONSTRUCTION LT SHOULDER X3. Past Anesthesia/Blood Transfusion Reactions: No Reported Reaction, Motion Sickness Past Psychological History: ADD/ADHD, Anxiety, Depression, PTSD Smoking Status: Former smoker, Vaper Past Alcohol Use History: None Reported Past Drug Use History: Marijuana - Past Family History Mother Family Medical History: Asthma, Congestive Heart Failure (CHF), COPD, GERD/Reflux, Pulmonary Embolus Additional Family Medical History / Comment(s): PTSD, depression. General Exam Limitations: altered mental status General appearance: alert, in no apparent distress Head exam: Present: atraumatic, normocephalic, normal inspection Eye exam: Present: normal appearance, PERRL, EOMI. Absent: scleral icterus, conjunctival injection, periorbital swelling ENT exam: Present: normal exam, mucous membranes moist Neck exam: Present: normal inspection. Absent: tenderness, meningismus, lymphadenopathy Respiratory exam: Present: normal lung sounds bilaterally. Absent: respiratory distress, wheezes, rales, rhonchi, stridor Cardiovascular Exam: Present: regular rate, normal rhythm, normal heart sounds. Absent: systolic murmur, diastolic murmur, rubs, gallop, clicks GI/Abdominal exam: Present: soft, normal bowel sounds. Absent: distended, tenderness, guarding, rebound, rigid Extremities exam: Present: normal inspection, full ROM, normal capillary refill. Absent: tenderness, pedal edema, joint swelling, calf tenderness Back exam: Present: normal inspection Neurological exam: Present: alert, oriented X3, CN II-XII intact Psychiatric exam: Present: normal affect, normal mood Skin exam: Present: warm, dry, intact, normal color. Absent: rash Course Vital Signs 10/02/22 10/02/22 10/02/22 00:02 02:08 04:00 Temperature 97.3 F L 98.1 F Pulse Rate 87 92 90 Respiratory 16 17 16 Rate Blood Pressure 113/80 119/78 109/67 O2 Sat by Pulse 100 98 97 Oximetry 06/02/22 06/02/22 06/02/22 05:00 05:28 10:00 Temperature 98.2 F Pulse Rate 79 82 80 Respiratory 17 18 Rate Blood Pressure 90/58 119/78 112/76 O2 Sat by Pulse 98 98 Oximetry - Reevaluation(s) Reevaluation #1: 06/02/22 Medical records reviewed Patient family informed results and questions are answered No recurrent seizure here in the ER Still remains postictal Medical Decision Making - Medical Decision Making 36 female to the emergency department for evaluation of seizure seizure with recurrent seizures, patient be admitted for neurology evaluation - Lab Data Result diagrams: 06/02/22 00:25 06/02/22 00:25 Lab Results 06/02/22 06/02/22 06/02/22 Range/Units 00:25 00:25 00:25 WBC 7.7 (3.8-10.6) k/uL RBC 3.81 (3.80-5.40) m/uL Hgb 10.7 L (11.4-16.0) gm/dL Hct 33.1 L (34.0-46.0) % MCV 86.9 (80.0-100.0) fL MCH 28.0 (25.0-35.0) pg MCHC 32.3 (31.0-37.0) g/dL RDW 16.0 H (11.5-15.5) % Plt Count 191 (150-450) k/uL MPV 9.2 Neutrophils % 62 % Lymphocytes % 30 % Monocytes % 5 % Eosinophils % 1 % Basophils % 0 % Neutrophils # 4.8 (1.3-7.7) k/uL Lymphocytes # 2.3 (1.0-4.8) k/uL Monocytes # 0.4 (0-1.0) k/uL Eosinophils # 0.0 (0-0.7) k/uL Basophils # 0.0 (0-0.2) k/uL Sodium 140 (137-145) mmol/L Potassium 3.5 (3.5-5.1) mmol/L Chloride 110 H (98-107) mmol/L Carbon Dioxide 19 L (22-30) mmol/L Anion Gap 11 mmol/L BUN 11 (7-17) mg/dL Creatinine 0.80 (0.52-1.04) mg/dL Est GFR (CKD-EPI)AfAm >90 (>60 ml/min/1.73 sqM) Est GFR (CKD-EPI)NonAf >90 (>60 ml/min/1.73 sqM) Glucose 64 L (74-99) mg/dL Calcium 8.7 (8.4-10.2) mg/dL Magnesium 1.7 (1.6-2.3) mg/dL Total Bilirubin 0.1 L (0.2-1.3) mg/dL AST 19 (14-36) U/L ALT 12 (4-34) U/L Alkaline Phosphatase 62 (38-126) U/L Total Protein 5.6 L (6.3-8.2) g/dL Albumin 3.6 (3.5-5.0) g/dL Urine Color Light Yellow Urine Appearance Cloudy H (Clear) Urine pH 6.0 (5.0-8.0) Ur Specific [place] 1.024 (1.001-1.035) Urine Protein Trace H (Negative) Urine Glucose (UA) Negative (Negative) Urine Ketones Negative (Negative) Urine Blood Negative (Negative) Urine Nitrite Negative (Negative) Urine Bilirubin Negative (Negative) Urine Urobilinogen <2.0 (<2.0) mg/dL Ur Leukocyte Esterase Large H (Negative) Urine RBC 3 (0-5) /hpf Urine WBC 11 H (0-5) /hpf Ur Squamous Epith Cells 42 H (0-4) /hpf Amorphous Sediment Occasional H (None) /hpf Urine Bacteria Rare H (None) /hpf Urine Mucus Rare H (None) /hpf Urine HCG, Qual (Not Detectd) Salicylates <1.0 mg/dL Urine Opiates Screen Not Detected (NotDetected) Ur Oxycodone Screen Not Detected (NotDetected) Urine Methadone Screen Not Detected (NotDetected) Ur Propoxyphene Screen Not Detected (NotDetected) Acetaminophen 14.2 ug/mL Ur Barbiturates Screen Detected H (NotDetected) Phenytoin <3.0 ug/mL Valproic Acid <10.0 ug/mL Carbamazepine <3.0 ug/mL U Tricyclic Antidepress Not Detected (NotDetected) Ur Phencyclidine Scrn Not Detected (NotDetected) Ur Amphetamines Screen Not Detected (NotDetected) U Methamphetamines Scrn Not Detected (NotDetected) U Benzodiazepines Scrn Detected H (NotDetected) Urine Cocaine Screen Not Detected (NotDetected) U Marijuana (THC) Screen Detected H (NotDetected) 06/02/22 Range/Units 01:18 WBC (3.8-10.6) k/uL RBC (3.80-5.40) m/uL Hgb (11.4-16.0) gm/dL Hct (34.0-46.0) % MCV (80.0-100.0) fL MCH (25.0-35.0) pg MCHC (31.0-37.0) g/dL RDW (11.5-15.5) % Plt Count (150-450) k/uL MPV Neutrophils % % Lymphocytes % % Monocytes % % Eosinophils % % Basophils % % Neutrophils # (1.3-7.7) k/uL Lymphocytes # (1.0-4.8) k/uL Monocytes # (0-1.0) k/uL Eosinophils # (0-0.7) k/uL Basophils # (0-0.2) k/uL Sodium (137-145) mmol/L Potassium (3.5-5.1) mmol/L Chloride (98-107) mmol/L Carbon Dioxide (22-30) mmol/L Anion Gap mmol/L BUN (7-17) mg/dL Creatinine (0.52-1.04) mg/dL Est GFR (CKD-EPI)AfAm (>60 ml/min/1.73 sqM) Est GFR (CKD-EPI)NonAf (>60 ml/min/1.73 sqM) Glucose (74-99) mg/dL Calcium (8.4-10.2) mg/dL Magnesium (1.6-2.3) mg/dL Total Bilirubin (0.2-1.3) mg/dL AST (14-36) U/L ALT (4-34) U/L Alkaline Phosphatase (38-126) U/L Total Protein (6.3-8.2) g/dL Albumin (3.5-5.0) g/dL Urine Color Urine Appearance (Clear) Urine pH (5.0-8.0) Ur Specific [place] (1.001-1.035) Urine Protein (Negative) Urine Glucose (UA) (Negative) Urine Ketones (Negative) Urine Blood (Negative) Urine Nitrite (Negative) Urine Bilirubin (Negative) Urine Urobilinogen (<2.0) mg/dL Ur Leukocyte Esterase (Negative) Urine RBC (0-5) /hpf Urine WBC (0-5) /hpf Ur Squamous Epith Cells (0-4) /hpf Amorphous Sediment (None) /hpf Urine Bacteria (None) /hpf Urine Mucus (None) /hpf Urine HCG, Qual Not Detected (Not Detectd) Salicylates mg/dL Urine Opiates Screen (NotDetected) Ur Oxycodone Screen (NotDetected) Urine Methadone Screen (NotDetected) Ur Propoxyphene Screen (NotDetected) Acetaminophen ug/mL Ur Barbiturates Screen (NotDetected) Phenytoin ug/mL Valproic Acid ug/mL Carbamazepine ug/mL U Tricyclic Antidepress (NotDetected) Ur Phencyclidine Scrn (NotDetected) Ur Amphetamines Screen (NotDetected) U Methamphetamines Scrn (NotDetected) U Benzodiazepines Scrn (NotDetected) Urine Cocaine Screen (NotDetected) U Marijuana (THC) Screen (NotDetected) - Radiology Data Radiology results: report reviewed (CT brain C-spine and facial bones chest x- ray and right hip x-ray and pelvis is negative for acute disease), image reviewed Disposition Clinical Impression: Epileptic seizure, Epileptic seizure, generalized Disposition: ADMITTED IP TO THIS [facility] Condition: Fair Is patient prescribed a controlled substance at d/c from ED?: No Time of Disposition: 03:30
[2022-06-02 01:02] LABS: Basophils % (A) 0 %; Eosinophils % (A) 1 %; HCT 33.1 % (34.0-46.0); HGB 10.7 gm/dL (11.4-16.0); Lymphocytes # (A) 2.3 k/uL (1.0-4.8); Lymphocytes % (A) 30 %; MCHC 32.3 g/dL (31.0-37.0); MCV 86.9 fL (80.0-100.0); Mean Platelet Volume 9.2; Monocytes # (A) 0.4 k/uL (0-1.0); Monocytes % (A) 5 %; Neutrophils # (A) 4.8 k/uL (1.3-7.7); Neutrophils % (A) 62 %; Platelet Count 191 k/uL (150-450); RBC 3.81 m/uL (3.80-5.40); WBC 7.7 k/uL (3.8-10.6)
[2022-06-02 01:15] LABS: ALT 12 U/L (4-34); AST 19 U/L (14-36); Acetaminophen 14.2 ug/mL; African American GFR (CKD) >90 (>60 ml/min/1.73 sqM); Albumin 3.6 g/dL (3.5-5.0); Alkaline Phosphatase 62 U/L (38-126); Anion Gap 11 mmol/L; Blood Urea Nitrogen 11 mg/dL (7-17); Calcium 8.7 mg/dL (8.4-10.2); Carbamazepine (Tegretol) <3.0 ug/mL; Carbon Dioxide 19 mmol/L (22-30); Chloride 110 mmol/L (98-107); Glucose 64 mg/dL (74-99); Magnesium 1.7 mg/dL (1.6-2.3); Non-African American GFR(CKD) >90 (>60 ml/min/1.73 sqM); Phenytoin (Dilantin) <3.0 ug/mL; Potassium 3.5 mmol/L (3.5-5.1); Salicylate <1.0 mg/dL; Sodium 140 mmol/L (137-145); Total Bilirubin 0.1 mg/dL (0.2-1.3); Total Protein 5.6 g/dL (6.3-8.2)
[2022-06-02 01:18] LABS: Valproic Acid (Depakene) <10.0 ug/mL
[2022-06-02 01:54] LABS: Amorphous Sediment,Urine Occasional /hpf; Appearance,Urine Cloudy (Clear); Bacteria,Urine Rare /hpf; Bilirubin,Urine Negative (Negative); Blood,Urine Negative (Negative); Color,Urine Light Yellow; Glucose,Urine (UA) Negative (Negative); Ketones,Urine Negative (Negative); Leukocyte Esterase,Urine Large (Negative); Mucus,Urine Rare /hpf; Nitrite,Urine Negative (Negative); Protein,Urine Trace (Negative); RBC,Urine 3 /hpf (0-5); Specific Gravity,Urine 1.024 (1.001-1.035); Squamous Epithelial Cell,Urine 42 /hpf (0-4); Urobilinogen,Urine <2.0 mg/dL (<2.0); WBC,Urine 11 /hpf (0-5)
[2022-06-02 02:00] LABS: Amphetamine Screen,Urine Not Detected (NotDetected); Barbiturate Screen,Urine Detected (NotDetected); Benzodiazepines Screen,Urine Detected (NotDetected); Cocaine Screen,Urine Not Detected (NotDetected); Methadone Screen, Urine Not Detected (NotDetected); Opiate Screen,Urine Not Detected (NotDetected); Oxycodone Screen, Urine Not Detected (NotDetected); Phencyclidine Screen,Urine Not Detected (NotDetected); Tricyclic Antidepressant,Urine Not Detected (NotDetected); Urn Cannabinoid Scrn Detected (NotDetected)
--- NOTE | 2022-06-02 02:36 | CT ---
EXAMINATION TYPE: CT brain cspine wo con DATE OF EXAM: 06/02/2022 COMPARISON: 04/08/2020 HISTORY: Grand mal seizure CT DLP: 1506.9 mGycm Automated exposure control for dose reduction was used. Images of the brain and cervical spine obtained with no contrast. Ventricles of normal size. There is no mass effect or midline shift. No sign of intracranial hemorrha ge. Calvarium is intact. The skull base is intact. No evidence of cerebral edema. Cervical vertebra have normal alignment. Posterior elements are intact. Facet joints are intact. Disc spaces are fairly normal. Prevertebral soft tissues are intact. IMPRESSION: Negative CT scan of the brain. Negative CT scan of the cervical spine. No change compared to old exam.
--- NOTE | 2022-06-02 02:38 | CT ---
EXAMINATION TYPE: CT facial bones wo con DATE OF EXAM: 06/02/2022 COMPARISON: 04/08/2020 HISTORY: Grand mal seizure CT DLP: 1506.9 mGycm Automated exposure control for dose reduction was used. Images obtained from the bottom of the mandible to the top of the frontal sinuses with no contrast. The mandibular ring is intact. Temporomandibular joints are intact. Exam limited by motion. The zygom atic arches appear normal. Maxilla is intact. No evidence of orbital blowout fracture. The orbital ma rgins are intact. No retro-orbital mass. There is fairly normal aeration of the paranasal sinuses. Se lla turcica appears normal. Temporal bones appear normal. There is normal external auditory canals. T here is normal aeration of the temporal bones. IMPRESSION: Normal CT scan of the facial bones. No fracture. No change compared to old exam.
--- NOTE | 2022-06-02 02:45 | XR ---
EXAMINATION TYPE: XR Hip RT and AP Pelvis DATE OF EXAM: 06/02/2022 COMPARISON: NONE HISTORY: Fall. Pain TECHNIQUE: 3 views FINDINGS: The pelvic ring is intact. Proximal right femur and hip joint appear normal. Hip joint spac es are normal. Sacroiliac joints are intact. IMPRESSION: Negative pelvis and right hip exam.
--- NOTE | 2022-06-02 02:46 | XR ---
EXAMINATION TYPE: XR chest 1V DATE OF EXAM: 06/02/2022 COMPARISON: 04/20/2014 HISTORY: Seizure TECHNIQUE: FINDINGS: Heart and mediastinum are normal. Lungs are clear. Diaphragm is normal. Bony thorax appears normal. There are chest leads. IMPRESSION: Normal chest. No change.
[2022-06-02] MEDS ORDERED: NALOXONE 0.4 MG/ML 1 ML VIAL IV PRN (03:28)
[2022-06-02] MEDS ORDERED: ONDANSETRON 4 MG/2 ML VIAL IVP PRN (03:28)
[2022-06-02] MEDS: SODIUM CHLORIDE 0.9% 1,000 ML IV SCH ×3 (03:56→19:15)
--- NOTE | 2022-06-02 10:52 | P.HPIM ---
History of Present Illness H&P Date: 06/02/22 Chief Complaint: Seizure HISTORY OF PRESENT ILLNESS: This is a 36-year-old female who is new to my practice with a pacemaker history significant for seizure disorder according to his mother at the bedside, with a prior history of petit mal seizure as well as grand mal seizure used to be under the care of Dr. Mazariegos and he has been seen by multiple neurologists in the past, was on Lamictal has not been taking the medication for 1. Of time, used to see Dr. Lisa however her mother made the switch to come and see me in the office she is a matter fact has an appointment to see me in the office next week, patient apparently had had numerous seizure over the last month or so she stated about a month ago she did have a 3 violent seizures at that time she called EMS and by the time they got there patient was awake and alert and there was no reason for her to go to the emergency department, she was advised to go see neurologists at that time, last patient developed to have 2 significant seizure with postictal state, according to the mother that she has been having issues with that on and off without taking any medication, we was supposed to come and see me in the office as stated earlier next week, last night developed to have a significant seizure activity, she fell and hit the right side of her face as well as right hip and both lower extremities, EMS got there and they transported her to the emergency department at [facility] had a computed tomography scan of the brain did not show evidence of acute of normalities, patient was started on Keppra 500 mg piggyback every 12 hours, and neurology consultation was obtained she was placed in the seizure precautions. She will be admitted to the hospital for full evaluation by neurology. REVIEW OF SYSTEMS: Constitutional: No documented fever, no chills, no night sweats. No weight change. No weakness, fatigue or lethargy. No daytime sleepiness. HEENT: Positive for headache. No blurred vision or double vision, no loss of vision. No loss of Hearing, no ringing in the ears, no dizziness. No nasal drainage or congestion. No epistaxis. No sore throat. Lungs: No shortness of breath, no cough, no sputum production. No wheezing. Reports dyspnea with activity. Cardiovascular: No chest pain, no lower extremity edema. No palpitations. No paroxysmal nocturnal dyspnea. No orthopnea. No lightheadedness or dizziness. No syncopal episodes. Abdominal: Reports abdominal pain. No nausea, vomiting. No diarrhea. No constipation. No bloody or tarry stools reports loss of appetite. Genitourinary: No dysuria, increased frequency, urgency. No urinary retention. Musculoskeletal: No myalgias. No muscle weakness, no gait dysfunction, no frequent falls. No back pain. No neck pain. Integumentary: No wounds, no lesions. No rash or pruritus. No unusual bruising. No change in hair or nails. Neurologic: No aphasia. No facial droop. No change in mentation. positive for head injury. Positive for headache. No paralysis. No paresthesia. positive for seizure Psychiatric: No depression. No anxiety. No mood swings. Endocrine: No abnormal blood sugars. No weight change. PAST MEDICAL HISTORY: Seizure disorder. Irritable bowel syndrome-Mixed. Glaucoma. Migraine headaches. ALLERGIC rhinitis. Anxiety disorder. Depressive disorder. PAST SURGICAL HISTORY: Left shoulder reconstructive surgery 3. Colonoscopy 2016. SOCIAL HISTORY: Patient started to smoke at the age of 19 about a pack every day, she recently switched to vaping, she uses marijuana on and off, she denies any other drug use or abuse, she denies any alcohol abuse, she lives with her mother. FAMILY HISTORY: Mother is 68-year-old with history of versus technical support manager for prevention, history of hypertension, history of hyperlipidemia as well heart disease, father 68-year-old with history of seizure disorder, patient had 1 sister who passed and 1 brother who is healthy PHYSICAL EXAMINATION: General: 36-year-old female laying down in bed appears to be in post ictal state. Opens her eyes in response to verbal stimuli HEENT: Head with minimal right periorbital bruise, normocephalic, pupils were equal round reactive to light and recommendation, extraocular muscle movement were intact, sclera nonicteric, conjunctivae were pale, mucous membranes of the mouth are somewhat dry. Neck: Supple, no JVP, normal carotid upstroke bilaterally, no lymphadenopathy. Chest: Decreased breath sounds at the bases, few rhonchi, no expiratory wheezes, no chest wall tenderness, no intercostal retractions. Heart: First heart sound is normal, second heart sounds normal there is no gal lop or murmur. Abdomen: Soft, nontender, nondistended, positive bowel sounds. Extremities: There is no edema no calf tenderness DP +2 bilaterally. Neurologic examination: Patient is drowsy due to post ictal state, however she moves all of her extremities. ASSESSMENT AND PLAN: 1. Recurrent grand mal seizure with a prior history of petit mal seizure. Patient was started on Keppra 500 mg IV piggyback every 12 hours, patient will have to have an EKG, seizure precautions, computed tomography scan of the brain did not show evidence of acute of the valve disease, neurology consultation. 2. Urinary tract infection with SIRS. Urine culture was sent already started the patient on Rocephin 1 g. Every 24 hours, continue IV fluid in the form of normal saline 130 mL an hour. 3. Irritable bowel syndrome. Continue dicyclomine 20 mg orally 4 times every day. 4. History of glaucoma. We will continue with latanoprost 0.005% 1 drop in both eyes at bedtime. 5. History of migraine headaches. Appears to be stable at this time. 6. Anxiety/depressive disorder. Continue patient on Cymbalta 30 mg orally 2 times every day as well as mirtazapine 30 mg every day. 7. ALLERGIC rhinitis. Currently on cetirizine 10 mg every day as well as Flonase history 1 puff in each nostril twice every day. 8. DVT prophylaxis. Bilateral knee-high MICHELLE hose. 9. GI prophylaxis. Continue patient on Protonix 40 mg every day. 10. Admit to inpatient. Estimated length of stay 2 midnights. 11. Patient is full code. Past Medical History Past Medical History: Asthma, Eye Disorder, Fibromyalgia, GERD/Reflux, GI Bleed, Seizure Disorder, Skin Disorder Additional Past Medical History / Comment(s): HX VOMITING BLOOD. PSYCHOSOMATIC SEIZURE DISORDER, OCCASIONAL EPISODES OF INCREASED HR & BLOOD PRESSURE - Paroxymal Tachycardia, R/T ANXIETY. HX OCULAR STROKE LEFTT EYE, WITH DECREASED VISION, migraines, bilateral glaucoma. History of Any Multi-Drug Resistant Organisms: None Reported Past Surgical History: Orthopedic Surgery Additional Past Surgical History / Comment(s): RECONSTRUCTION LT SHOULDER X3. Past Anesthesia/Blood Transfusion Reactions: No Reported Reaction, Motion Sickness Past Psychological History: ADD/ADHD, Anxiety, Depression, PTSD Smoking Status: Former smoker, Vaper Past Alcohol Use History: None Reported Past Drug Use History: Marijuana - Past Family History Mother Family Medical History: Asthma, Congestive Heart Failure (CHF), COPD, GERD/Reflux, Pulmonary Embolus Additional Family Medical History / Comment(s): PTSD, depression. Medications and Allergies Home Medications Medication Instructions Recorded Confirmed Type Fluticasone Nasal [place] [Flonase 1 spr EA NOSTRIL DAILY 08/20/17 03/19/21 History Nasal [place]] Butalb/APAP/Caff 50-325-40Mg 1 tab PO Q4H PRN 03/14/21 03/19/21 History [Fioricet 50-325-40] DULoxetine HCL [Cymbalta] 30 mg PO BID 03/14/21 03/19/21 History Latanoprost/Pf [Latanoprost 0.005% 1 drop BOTH EYES HS 03/14/21 03/19/21 History Eye Drop] Mirtazapine [Remeron] 30 mg PO HS 03/14/21 03/19/21 History cloNIDine HCL 0.1 mg PO HS 03/14/21 03/19/21 History Cetirizine HCl [Zyrtec] 10 mg PO DAILY 03/19/21 03/19/21 History HYDROcodone/APAP 7.5-325MG [[place] 1 tab PO Q6HR PRN 03/19/21 03/19/21 History 7.5-325] HYDROcodone/APAP 7.5-325MG [[place] 1 - 2 each PO Q6HR PRN #28 tab 03/22/21 Rx 7.5-325] Dicyclomine [Bentyl] 20 mg PO QID PRN #24 tablet 11/02/21 Rx Ondansetron [Zofran ODT] 4 mg PO Q8HR #20 tab 11/02/21 Rx Allergies Allergy/AdvReac Type Severity Reaction Status Date / Time adhesive Allergy Rash, Verified 11/01/21 20:16 PEELS SKIN OFF AND BLEEDS divalproex sodium Allergy Hallucinati Verified 11/01/21 20:16 [From Depakote] ons Sulfa (Sulfonamide Allergy Anaphylaxis Verified 11/01/21 20:16 Antibiotics) aripiprazole [From Abilify] AdvReac SUICIDAL Verified 11/01/21 20:16 THOUGHTS, CUT HERSELF Physical Exam Vitals: Vital Signs Temp Pulse Resp BP Pulse Ox 06/02/22 05:28 82 119/78 06/02/22 05:00 79 17 90/58 98 06/02/22 04:00 98.1 F 90 16 109/67 97 06/02/22 02:08 92 17 119/78 98 06/02/22 00:02 97.3 F L 87 16 113/80 100 Intake and Output 06/01/22 06/02/22 06/02/22 22:59 06:59 14:59 Other: Weight 86.183 kg Results CBC & Chem 7: 06/02/22 00:25 06/02/22 00:25 Labs: Abnormal Lab Results - Last 24 Hours (Table) 06/02/22 06/02/22 06/02/22 Range/Units 00:25 00:25 00:25 Hgb 10.7 L (11.4-16.0) gm/dL Hct 33.1 L (34.0-46.0) % RDW 16.0 H (11.5-15.5) % Chloride 110 H (98-107) mmol/L Carbon Dioxide 19 L (22-30) mmol/L Glucose 64 L (74-99) mg/dL Total Bilirubin 0.1 L (0.2-1.3) mg/dL Total Protein 5.6 L (6.3-8.2) g/dL Urine Appearance Cloudy H (Clear) Urine Protein Trace H (Negative) Ur Leukocyte Esterase Large H (Negative) Urine WBC 11 H (0-5) /hpf Ur Squamous Epith Cells 42 H (0-4) /hpf Amorphous Sediment Occasional H (None) /hpf Urine Bacteria Rare H (None) /hpf Urine Mucus Rare H (None) /hpf Ur Barbiturates Screen Detected H (NotDetected) U Benzodiazepines Scrn Detected H (NotDetected) U Marijuana (THC) Screen Detected H (NotDetected)
--- NOTE | 2022-06-02 11:35 | P.CNNES ---
History of Present Illness Consult date: 06/02/22 Requesting physician: Aamir Adams Reason for Consult: seizure History of Present Illness: This is a 36-year-old woman with history of seizures, migraine, herbal bowel syndrome, pacemaker who presented emergency department because of recurrent seizures. Some of the history is obtained from the patient's medical records as well as the nurse. Patient stated that she has seizures for at least more than 10 years but refuses to be on medications. She stated that she was on Lamictal in the past but refuses to be on medication as stated earlier she cannot tell me if she was on any other antiepileptic drug. Currently she is not on any seizure medications. Per the medical record is seems that the patient presented because of the recurrent seizures and per the primary team's note is seems that she presented to his office because of numerous seizures over the last 1 month and she had 3 vital seizures while she presented to the EMS. The primary team she has seizures with post ictal confusion as well as has a history of petit mal seizures. According to the patient's nurse is seems that the mother stated that the she's been having seizures since her sister committed suicide about 3-4 years ago after being diagnosed with a terminal illness according to the nurse the mother reported this to the overnight nurse. Seems the patient was a valid by different neurologists in the past according to the primary team's note. She denies of alcohol use. Upon reviewing her medical record she had routine EEG in our facility and one in 2013 and 2018 and both reported the negative for seizure and no clear e pileptiform discharges. The 2019 is reported as normal. I reviewed the 2019 and a neurologist at that time that evaluated her on 03/2019 her seizure my suggest PNES. He recommended to continue the lamotrigine 200 mg 1 tablet twice a day and treat as started the Topamax 25 mg 1 tablet twice a day for migraine. Some workup during this hospital visit consisted of: She is afebrile No leukocytosis. CT of the head is reported as negative CT scan of the brain. I personally reviewed this study and there is no acute or subacute ischemia there is no subretinal hemorrhage or mass effect. CT of the cervical spine was reported as negative. Glucose is 64 on presentation Urinalysis seen suggestive of urinary tract infection Urine drug screen is positive for barbiturates, benzos, marijuana otherwise rests is not detected. Review of Systems Review of system: The 12 point system was reviewed and apparent positive and negative per HPI. Past Medical History Past Medical History: Asthma, Eye Disorder, Fibromyalgia, GERD/Reflux, GI Bleed, Seizure Disorder, Skin Disorder Additional Past Medical History / Comment(s): HX VOMITING BLOOD. PSYCHOSOMATIC SEIZURE DISORDER, OCCASIONAL EPISODES OF INCREASED HR & BLOOD PRESSURE - Paroxymal Tachycardia, R/T ANXIETY. HX OCULAR STROKE LEFTT EYE, WITH DECREASED VISION, migraines, bilateral glaucoma. History of Any Multi-Drug Resistant Organisms: None Reported Past Surgical History: Orthopedic Surgery Additional Past Surgical History / Comment(s): RECONSTRUCTION LT SHOULDER X3. Past Anesthesia/Blood Transfusion Reactions: No Reported Reaction, Motion Sickness Past Psychological History: ADD/ADHD, Anxiety, Depression, PTSD Smoking Status: Former smoker, Vaper Past Alcohol Use History: None Reported Past Drug Use History: Marijuana - Past Family History Mother Family Medical History: Asthma, Congestive Heart Failure (CHF), COPD, GERD/Reflux, Pulmonary Embolus Additional Family Medical History / Comment(s): PTSD, depression. Medications and Allergies Home Medications Medication Instructions Recorded Confirmed Type Fluticasone Nasal [place] [Flonase 1 spr EA NOSTRIL DAILY 08/20/17 03/19/21 History Nasal [place]] Butalb/APAP/Caff 50-325-40Mg 1 tab PO Q4H PRN 03/14/21 03/19/21 History [Fioricet 50-325-40] DULoxetine HCL [Cymbalta] 30 mg PO BID 03/14/21 03/19/21 History Latanoprost/Pf [Latanoprost 0.005% 1 drop BOTH EYES HS 03/14/21 03/19/21 History Eye Drop] Mirtazapine [Remeron] 30 mg PO HS 03/14/21 03/19/21 History cloNIDine HCL 0.1 mg PO HS 03/14/21 03/19/21 History Cetirizine HCl [Zyrtec] 10 mg PO DAILY 03/19/21 03/19/21 History HYDROcodone/APAP 7.5-325MG [[place] 1 tab PO Q6HR PRN 03/19/21 03/19/21 History 7.5-325] HYDROcodone/APAP 7.5-325MG [[place] 1 - 2 each PO Q6HR PRN #28 tab 03/22/21 Rx 7.5-325] Dicyclomine [Bentyl] 20 mg PO QID PRN #24 tablet 11/02/21 Rx Ondansetron [Zofran ODT] 4 mg PO Q8HR #20 tab 11/02/21 Rx Allergies Allergy/AdvReac Type Severity Reaction Status Date / Time adhesive Allergy Rash, Verified 11/01/21 20:16 PEELS SKIN OFF AND BLEEDS divalproex sodium Allergy Hallucinati Verified 11/01/21 20:16 [From Depakote] ons Sulfa (Sulfonamide Allergy Anaphylaxis Verified 11/01/21 20:16 Antibiotics) aripiprazole [From Abilify] AdvReac SUICIDAL Verified 11/01/21 20:16 THOUGHTS, CUT HERSELF Physical Examination - Vital Signs Vital Signs: Vital Signs Temp Pulse Resp BP Pulse Ox 06/02/22 10:00 98.2 F 80 18 112/76 98 06/02/22 05:28 82 119/78 06/02/22 05:00 79 17 90/58 98 06/02/22 04:00 98.1 F 90 16 109/67 97 06/02/22 02:08 92 17 119/78 98 06/02/22 00:02 97.3 F L 87 16 113/80 100 Intake and Output 06/01/22 06/02/22 06/02/22 22:59 06:59 14:59 Other: Weight 86.183 kg GENERAL: The patient is lying in bed and is not in acute distress. HENT: Has small bruise over the right side of face V2 and eye periorbital lateral region. CHEST: The heart rate is regular rate rhythm. No murmurs to auscultation. LUNG: Clear to auscultation bilaterally no wheezing noted throughout. Not labored breathing. ABDOMEN/GI: Bowel sounds present in all 4 quadrants. No tenderness to palpation throughout. NEUROLOGICAL: Higher mental function: The patient was sleeping upon seeing her but was aweakable but then wanted to go back to sleep. She is oriented to self, place and time. She was able to name objects (pen and watch). Patient is following simple commands. No aphasia and no neglect. Cranial nerves: The pupils are round, equal and reactive to light and acc ommodation. Visual puentes are full to confrontation throughout. Extraocular movement is intact no nystagmus is noted. Facial sensation is normal to touch throughout. The facial strength is normal throughout. Hearing is normal bilaterally to hand rub. Tongue is midline and moved [id number] without any difficulty. No dysarthria is noted. Shoulder shrug is normal bilaterally. Motor: The strength is 5 over 5 throughout. Normal tone and bulk. Cerebellum: Normal finger to nose bilaterally. Sensation: Sensation is normal to touch throughout. Reflexes (right/left): 2+ throughout.. Plantars are downgoing bilaterally. Results - Laboratory Findings CBC and BMP: 06/02/22 00:25 06/02/22 00:25 Abnormal Lab Findings: Abnormal Labs 06/02/22 06/02/22 06/02/22:25 00: 00:25 Hgb 10.7 L Hct 33.1 L RDW 16.0 H Chloride 110 H Carbon Dioxide 19 L Glucose 64 L Total Bilirubin 0.1 L Total Protein 5.6 L Urine Appearance Cloudy H Urine Protein Trace H Ur Leukocyte Esterase Large H Urine WBC 11 H Ur Squamous Epith Cells 42 H Amorphous Sediment Occasional H Urine Bacteria Rare H Urine Mucus Rare H Ur Barbiturates Screen Detected H U Benzodiazepines Scrn Detected H U Marijuana (THC) Screen Detected H Assessment and Plan Assessment: Recurrent seizure (It seems reported frequent seizure-like activity with GTC). She is non-compliant with her seizure medication (Lamictal since refusing to take it). 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 We'll get more information from the mother before considering changing the medication I highly recommend prolonged EEG as an outpatient or even up with a model unit to detect any actual epileptiform discharges or seizure. Again in 2019 was felt possibly she has psychogenic nonepileptic seizures and further workup as an outpatient will be sufficient to rule out any actual seizures in addition to her possible psychogenic nonepileptic episodes. Placed on seizure precautions seizure pads Recommend psychiatry as well as therapy evaluation as an outpatient We'll defer the rest of the medical management as an outpatient Patient was notified that per the DMV because of her seizures, to avoid driving for 6 month until no further seizure, avoid heights, avoids swimming unassisted or using heavy machinery. The plan was discussed with the patient as well as her nurse. I attempted to call the patient's mother via phone but no response. Thank you for the consultation Dr. Dang will start neurology service tomorrow Patricio Jacobson M.D. Neuro-hospitalist Time with Patient: Greater than 30
[2022-06-02] MEDS: NICOTINE 14MG/24HR PATCH TRANSDERM SCH (20:37)
[2022-06-02] MEDS: ACETAMINOPHEN TAB 325 MG TAB PO PRN (20:38)
[2022-06-02 21:00] LABS: C-Peptide 4.59 ng/mL (0.81-3.85)
[2022-06-02] MEDS: DICYCLOMINE 20 MG TAB PO PRN (21:54)
[2022-06-02] MEDS: cloNIDine HCL 0.1 MG TAB PO SCH (21:55)
[2022-06-02] MEDS: LATANOPROST 0.005% OPHTH DROPS 2.5 ML BTL BOTH EYES SCH (22:13)
[2022-06-02] MEDS: levETIRAcetam IV 500 MG in SODIUM CHLORIDE 0.9% 100 ML IVPB SCH (22:14)
[2022-06-02] MEDS: MIRTAZAPINE 15 MG TAB PO SCH (22:14)
[2022-06-02 22:50] LABS: % Iron Saturation 18.09 (12.00-45.00); Ferritin 11.6 ng/mL (10.0-291.0)
[2022-06-02] MEDS: DULoxetine HCL 30 MG CAPSULE.DR PO SCH (22:58)
[2022-06-03] MEDS: SODIUM CHLORIDE 0.9% 1,000 ML IV SCH (01:07)
[2022-06-03] MEDS ORDERED: PANTOPRAZOLE 40 MG TABLET PO SCH (07:30)
[2022-06-03] MEDS ORDERED: LORATADINE 10 MG TAB PO SCH (09:00)
[2022-06-03] MEDS ORDERED: FLUTICASONE 50MCG/SPRAY NASAL 16GM EA NOSTRIL SCH (09:00)
[2022-06-03 10:19] VITALS: TEMP 98.3
[2022-06-03] MEDS: DULoxetine HCL 30 MG CAPSULE.DR PO SCH ×2 (10:19→19:54)
[2022-06-03] MEDS: NICOTINE 14MG/24HR PATCH TRANSDERM SCH (10:20)
[2022-06-03] MEDS: levETIRAcetam IV 500 MG in SODIUM CHLORIDE 0.9% 100 ML IVPB SCH (10:20)
[2022-06-03] MEDS: ACETAMINOPHEN TAB 325 MG TAB PO PRN ×2 (10:31→15:23)
--- NOTE | 2022-06-03 14:36 | P.PN ---
Subjective Progress Note Date: 06/03/22 HISTORY OF PRESENT ILLNESS: This is a 36-year-old female who is new to my practice with a pacem donte history significant for seizure disorder according to his mother at the bedside, with a prior history of petit mal seizure as well as grand mal seizure used to be under the care of Dr. Mazariegos and he has been seen by multiple neurologists in the past, was on Lamictal has not been taking the medication for 1. Of time, used to see Dr. Lisa however her mother made the switch to come and see me in the office she is a matter fact has an appointment to see me in the office next week, patient apparently had had numerous seizure over the last month or so she stated about a month ago she did have a 3 violent seizures at that time she called EMS and by the time they got there patient was awake and alert and there was no reason for her to go to the emergency department, she was advised to go see neurologists at that time, last patient developed to have 2 significant seizure with postictal state, according to the mother that she has been having issues with that on and off without taking any medication, we was supposed to come and see me in the office as stated earlier next week, last night developed to have a significant seizure activity, she fell and hit the right side of her face as well as right hip and both lower extremities, EMS got there and they transported her to the emergency department at [facility] had a computed tomography scan of the brain did not show evidence of acute of normalities, patient was started on Keppra 500 mg piggyback every 12 hours, and neurology consultation was obtained she was placed in the seizure precautions. She will be admitted to the hospital for full evaluation by neurology. 06/03: Patient has been afebrile, heart rate 85, blood pressure 127/77, pulse ox 100% on room air. C-peptide 4.59. Iron 59, TIBC 326, iron saturation 18.09. Transferrin 233. Ferritin 11.6. LDH 323, vitamin B12 224, folate 7.8. Urine culture has been finalized with no growth after 18 hours. Patient has been evaluated by neurology with recommendations for routine EEG, Keppra 500 mg every [address] Jacobson recommended prolonged EEG as an outpatient. Also recommended psychiatric evaluation as an outpatient. Patient complains of feeling weak and has a headache. She is complaining that she has asked for a vegetarian diet and keeps getting a hamburger. Staff to order her a new diet. Anticipate probable discharge tomorrow. No repeat seizure activity. REVIEW OF SYSTEMS: Constitutional: No documented fever, no chills, no night sweats. No weight change. No weakness, fatigue or lethargy. No daytime sleepiness. HEENT: Positive for headache. No blurred vision or double vision, no loss of vision. No loss of Hearing, no ringing in the ears, no dizziness. No nasal drainage or congestion. No epistaxis. No sore throat. Lungs: No shortness of breath, no cough, no sputum production. No wheezing. Reports dyspnea with activity. Cardiovascular: No chest pain, no lower extremity edema. No palpitations. No p aroxysmal nocturnal dyspnea. No orthopnea. No lightheadedness or dizziness. No syncopal episodes. Abdominal: Reports abdominal pain. No nausea, vomiting. No diarrhea. No constipation. No bloody or tarry stools reports loss of appetite. Genitourinary: No dysuria, increased frequency, urgency. No urinary retention. Musculoskeletal: No myalgias. No muscle weakness, no gait dysfunction, no fr equent falls. No back pain. No neck pain. Integumentary: No wounds, no lesions. No rash or pruritus. No unusual bruising. No change in hair or nails. Neurologic: No aphasia. No facial droop. No change in mentation. positive for head injury. Positive for headache. No paralysis. No paresthesia. positive for seizure Psychiatric: No depression. No anxiety. No mood swings. Endocrine: No abnormal blood sugars. No weight change. PHYSICAL EXAMINATION: General: 36-year-old female laying down in bed appears to be in no acute distress. HEENT: Head with minimal right periorbital bruise, normocephalic, pupils were equal round reactive to light and recommendation, extraocular muscle movement were intact, sclera nonicteric, conjunctivae were pale, mucous membranes of the mouth are somewhat dry. Neck: Supple, no JVP, normal carotid upstroke bilaterally, no lymphadenopathy. Chest: Decreased breath sounds at the bases, few rhonchi, no expiratory wheezes, no chest wall tenderness, no intercostal retractions. Heart: First heart sound is normal, second heart sounds normal there is no gallop or murmur. Abdomen: Soft, nontender, nondistended, positive bowel sounds. Extremities: There is no edema no calf tenderness DP +2 bilaterally. Neurologic examination: Patient is drowsy due to post ictal state, however she moves all of her extremities. ASSESSMENT AND PLAN: 1. Recurrent grand mal seizure with a prior history of petit mal seizure. Patient was started on Keppra 500 mg IV piggyback every 12 hours, continue patient on seizure precautions, computed tomography scan of the brain did not show evidence of acute of the valve disease, neurology consultation appreciated. Patient underwent EEG and report is pending. 2. Urinary tract infection with SIRS. Urine culture was sent already started the patient on Rocephin 1 g. Every 24 hours, discontinue IV fluids. 3. Irritable bowel syndrome. Continue dicyclomine 20 mg orally 4 times every day. 4. History of glaucoma. We will continue with latanoprost 0.005% 1 drop in both eyes at bedtime. 5. History of migraine headaches. Appears to be stable at this time. 6. Anxiety/depressive disorder. Continue patient on Cymbalta 30 mg orally 2 times every day as well as mirtazapine 30 mg every day. 7. ALLERGIC rhinitis. Currently on cetirizine 10 mg every day as well as Flonase history 1 puff in each nostril twice every day. 8. DVT prophylaxis. Bilateral knee-high MICHELLE hose. 9. GI prophylaxis. Continue patient on Protonix 40 mg every day. Patient is full code. DISCHARGE PLAN Home Impression and plan of care have been directed as dictated by the signing physician. Yajaira Santos nurse practitioner acting as scribe for signing physician. Objective - Vital Signs Vital signs: Vital Signs Temp 98.2 F 06/03/22 01:41 Pulse 85 06/03/22 01:41 Resp 18 06/03/22 01:41 BP 127/77 06/03/22 01:41 Pulse Ox 100 06/03/22 01:41 FiO2 Intake & Output 06/02/22 06/03/22 06/03/22 18:59 06:59 18:59 Output Total 1100 Balance -1100 Weight 86.183 kg Output: Urine 1100 Other: Voiding Method Indwelling Catheter # Voids 1 - Labs CBC & Chem 7: 06/02/22 00:25 06/02/22 00:25 Labs: Abnormal Lab Results - Last 24 Hours (Table) 06/02/22 Range/Units 11:08 C-Peptide 4.59 H (0.81-3.85) ng/mL Microbiology - Last 24 Hours (Table) 06/02/22 00:25 Urine Culture - Preliminary Urine,Voided
--- NOTE | 2022-06-03 16:26 | P.PN ---
Subjective Progress Note Date: 06/03/22 Patient initially seen by Dr. Cuate Jacobson. Please refer to his note for details. Patient is a 36-year-old female, who started having seizures in 2009 after her sister committed suicide. Patient initially was on Keppra, but then later Lamictal was added by her psychiatrist. Patient stopped Keppra, and continued on Lamictal 150 mg twice a day. Patient states that she was seizure free for 8 years. She has one child who is autistic, therefore she did not want to take too many medications. 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 Patient states that she stopped taking Lamictal abruptly about a month ago and shortly after she had a seizure. She did not resume her Lamictal. She had another seizure for which she presented to this hospital. She bruised her right cheek, and right lower lip with this seizure. Patient has side effects from Depakote, as she started hearing voices. She also tried Risperdal, which produced a rash. Patient vapes 2000 hits per week. Objective - Vital Signs Vital signs: Vital Signs Temp 98.3 F 06/03/22 10:18 Pulse 58 L 06/03/22 14:00 Resp 15 06/03/22 14:00 BP 101/68 06/03/22 14:00 Pulse Ox 97 06/03/22 14:00 FiO2 Intake & Output 06/02/22 06/03/22 06/03/22 18:59 06:59 18:59 Intake Total 118 Output Total 1100 Balance -1100 118 Weight 86.183 kg Intake: Oral 118 Output: Urine 1100 Other: Voiding Method Indwelling Catheter Toilet # Voids 1 - Exam Patient's mental status, speech and language functions are normal. Cranial nerves are normal. Muscle strength is normal. No ataxia. Tone and bulk of muscles normal. - Labs CBC & Chem 7: 06/02/22 00:25 06/02/22 00:25 Labs: Abnormal Lab Results - Last 24 Hours (Table) 06/02/22 Range/Units 11:08 C-Peptide 4.59 H (0.81-3.85) ng/mL Microbiology - Last 24 Hours (Table) 06/02/22 00:25 Urine Culture - Final Urine,Voided Assessment and Plan Assessment: Recurrent seizure (It seems reported frequent seizure-like activity with GTC). She is non-compliant with her seizure medication, abruptly stopped taking Lamictal about a month ago. History of seizures since 2009, after her sister committed suicide. (Per Dr. 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 This is suggestive of generalized cerebral dysfunction as can be seen with encephalopathy of metabolic, vascular or medication causes. No definitive epileptiform activity was seen. If your suspicion for seizure is high, suggest prolonged, sleep deprived EEG. Continue Keppra 500mg every 12 hours. Will switch to oral Keppra. Patient to follow up with a neurologist. She may switch back to Lamictal, which worked very well for 8 years, as per her statement. Patient may benefit from prolonged EEG monitoring to evaluate for epileptic versus nonepileptic versus mixed seizure disorder. In 2019 was felt possibly she has psychogenic nonepileptic seizures. Recommend psychiatry follow-up. We'll defer the rest of the medical management as an outpatient Patient was informed of [place] state law of no driving unless seizure free for 6 months, climbing ladders or operating dangerous machinery or unsupervised swimming. Neurologically clear for discharge.
[2022-06-03 19:48] VITALS: BP 124/68; PULSE 76; RESP 18
[2022-06-03] MEDS: MIRTAZAPINE 15 MG TAB PO SCH (19:54)
[2022-06-03] MEDS: cloNIDine HCL 0.1 MG TAB PO SCH (19:54)
[2022-06-03] MEDS: LATANOPROST 0.005% OPHTH DROPS 2.5 ML BTL BOTH EYES SCH (19:54)
[2022-06-03] MEDS: DICYCLOMINE 20 MG TAB PO PRN (19:54)
[2022-06-03] MEDS ORDERED: levETIRAcetam 500 MG TAB PO SCH (21:00)
--- NOTE | 2022-06-04 03:27 | EEG ---
ELECTROENCEPHALOGRAM REPORT PREAMBLE: This is a 36-year-old female with history of recurrent seizures. The patient has history of seizure disorder and migraines. The patient is supposed to be taking Lamictal, but she is not taking any medication for several days. She complains of an aura before her seizure. EEG FINDINGS: This is a 21-channel digital EEG recorded with video component, utilizing 10/20 international system with referential and bipolar montages. Background consists of disorganized, mixed frequencies of some fast frequency, intermixed with some 4 to 6 hertz theta, with some delta activity seen in bihemispheric region. Background does not seem to be clearly reactive to eye opening and closing. Photic driving response was not clearly seen. Some occasional frontal rhythmic delta activity was seen. Stage 2 sleep was seen with presence of sleep spindles. No definitive focal or generalized epileptiform activity was seen. IMPRESSION: This is an abnormal EEG due to the background disorganization, with mixed fast and slow frequency activity in bihemispheric region. This is suggestive of generalized cerebral dysfunction as can be seen with encephalopathy of metabolic, vascular, or medication causes. No definitive epileptiform activity was seen. If your suspicion for seizure is high, suggest prolonged, sleep-deprived EEG. MMODL / IJN: [id number] /
== END 2022-06-03 20:31 | disposition home or self-care (01) | DRG 101 ==
LOC: EC 23:57 → 5NMEDONC 06-02 03:28 → 3SCARD 06-02 21:54
PROVIDERS: ADMIT Internal Medicine; ATTEND Internal Medicine
PROC: 4A10X4Z Monitoring of Central Nervous Electrical Activity, External Approach (ICD-10-PCS; principal; 2022-06-02)
DX: G40.409 Other generalized epilepsy and epileptic syndromes, not intractable, without status epilepticus (principal); N39.0 Urinary tract infection, site not specified; F32.A Depression, unspecified; F43.10 Post-traumatic stress disorder, unspecified; F90.9 Attention-deficit hyperactivity disorder, unspecified type; H54.7 Unspecified visual loss; H40.9 Unspecified glaucoma; J45.909 Unspecified asthma, uncomplicated; K58.9 Irritable bowel syndrome, unspecified; Z79.899 Other long term (current) drug therapy; M79.7 Fibromyalgia; Z81.8 Family history of other mental and behavioral disorders; Z86.73 Personal history of transient ischemic attack (TIA), and cerebral infarction without residual deficits; Z87.891 Personal history of nicotine dependence; Z91.14 Patient's other noncompliance with medication regimen; Z91.199 Patient's noncompliance with other medical treatment and regimen due to unspecified reason; Z88.2 Allergy status to sulfonamides; Z91.048 Other nonmedicinal substance allergy status; Z88.8 Allergy status to other drugs, medicaments and biological substances
CPT/HCPCS: 36415; 70450; 70486; 71045; 72125; 73502; 80053; 80143; 80156; 80164; 80175; 80179; 80185; 80306; 81001; 81025; 82607; 82728; 82746; 82941; 83540; 83550; 83615; 83735; 84681; 85025; 87086; 95819; 96361; 96365; 96375; 99285

== ENCOUNTER 2022-11-23 19:01 | Inpatient (IN) | payer MEDICAID, OTHER ==
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
[2022-11-23] MEDS ORDERED: DIPH,PERTUS(ACELL)TETVAC-LF 0.5 ML VIAL IM ONE (19:47)
[2022-11-23 20:54] LABS: Amphetamine Screen,Urine Not Detected (NotDetected); Barbiturate Screen,Urine Not Detected (NotDetected); Benzodiazepines Screen,Urine Detected (NotDetected); Cocaine Screen,Urine Not Detected (NotDetected); Methadone Screen, Urine Not Detected (NotDetected); Opiate Screen,Urine Not Detected (NotDetected); Oxycodone Screen, Urine Not Detected (NotDetected); Phencyclidine Screen,Urine Not Detected (NotDetected); Tricyclic Antidepressant,Urine Not Detected (NotDetected); Urn Cannabinoid Scrn Detected (NotDetected)
[2022-11-24] MEDS ORDERED: MAGNESIUM HYDROXIDE 2,400 MG/10 ML CUP PO PRN (00:58)
[2022-11-24] MEDS ORDERED: HALOPERIDOL LACTATE 5 MG/ML 1 ML VIAL IM PRN (00:58)
[2022-11-24] MEDS ORDERED: MAG HYDROX/AL HYDROX/SIMETH 30 ML CUP PO PRN (00:58)
[2022-11-24] MEDS ORDERED: LORazepam 2 MG/ML INJ IM PRN (01:01)
[2022-11-24] MEDS ORDERED: haloperidoL 5 MG TAB PO PRN (01:02)
[2022-11-24] MEDS: levETIRAcetam 500 MG TAB PO SCH ×3 (01:46→20:47)
[2022-11-24] MEDS: DULoxetine HCL 60 MG CAPSULE.DR PO SCH ×3 (01:46→20:48)
[2022-11-24 04:45] LABS: Appearance,Urine Cloudy (Clear); Bacteria,Urine Rare /hpf; Bilirubin,Urine Negative (Negative); Blood,Urine Negative (Negative); Color,Urine Yellow; Glucose,Urine (UA) Negative (Negative); Ketones,Urine Negative (Negative); Leukocyte Esterase,Urine Trace (Negative); Mucus,Urine Rare /hpf; Nitrite,Urine Negative (Negative); PH, Urine 6.5 (5.0-8.0); Protein,Urine Negative (Negative); RBC,Urine 1 /hpf (0-5); Specific Gravity,Urine 1.017 (1.001-1.035); Squamous Epithelial Cell,Urine 4 /hpf (0-4); Urobilinogen,Urine <2.0 mg/dL (<2.0); WBC,Urine 1 /hpf (0-5)
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
[2022-11-24] MEDS ORDERED: DULoxetine HCL 60 MG CAPSULE.DR PO SCH (09:00)
[2022-11-24] MEDS ORDERED: levETIRAcetam 500 MG TAB PO SCH (09:00)
[2022-11-24] MEDS: DICYCLOMINE 20 MG TAB PO SCH ×2 (09:11→20:48)
[2022-11-24] MEDS: hydrOXYzine pamoate 25 MG CAP PO SCH ×3 (09:11→20:47)
[2022-11-24] MEDS: cloNIDine HCL 0.1 MG TAB PO SCH ×2 (09:11→20:47)
[2022-11-24] MEDS: FLUTICASONE 50MCG/SPRAY NASAL 16GM EA NOSTRIL SCH (09:12)
[2022-11-24] MEDS: NICOTINE 14MG/24HR PATCH TRANSDERM SCH (09:16)
[2022-11-24] MEDS: ACETAMINOPHEN TAB 325 MG TAB PO PRN (09:17)
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
[2022-11-24] MEDS: BUTALB/APAP/CAFF 50-325-40MG TAB PO PRN ×2 (14:55→20:48)
[2022-11-24] MEDS: ONDANSETRON 4 MG TAB PO PRN (14:56)
[2022-11-24] MEDS ORDERED: MIRTAZAPINE 15 MG TAB PO SCH (21:00)
[2022-11-25] MEDS: DICYCLOMINE 20 MG TAB PO SCH ×2 (08:05→20:11)
[2022-11-25] MEDS: NICOTINE 14MG/24HR PATCH TRANSDERM SCH (08:05)
[2022-11-25] MEDS: FLUTICASONE 50MCG/SPRAY NASAL 16GM EA NOSTRIL SCH (08:05)
[2022-11-25] MEDS: cloNIDine HCL 0.1 MG TAB PO SCH ×2 (08:05→20:11)
[2022-11-25] MEDS: DULoxetine HCL 60 MG CAPSULE.DR PO SCH (08:05)
[2022-11-25] MEDS: levETIRAcetam 500 MG TAB PO SCH ×2 (08:06→20:12)
[2022-11-25] MEDS: hydrOXYzine pamoate 25 MG CAP PO SCH ×3 (08:06→20:12)
[2022-11-25] MEDS: BUTALB/APAP/CAFF 50-325-40MG TAB PO PRN ×3 (08:07→19:00)
[2022-11-25] MEDS: ONDANSETRON 4 MG TAB PO PRN ×2 (11:57→19:00)
[2022-11-25 12:28] LABS: Basophils % (A) 0 %; Eosinophils # (A) 0.1 k/uL (0-0.7); Eosinophils % (A) 2 %; HCT 35.7 % (34.0-46.0); HGB 11.9 gm/dL (11.4-16.0); Lymphocytes # (A) 1.9 k/uL (1.0-4.8); Lymphocytes % (A) 31 %; MCH 29.6 pg (25.0-35.0); MCHC 33.3 g/dL (31.0-37.0); MCV 88.8 fL (80.0-100.0); Mean Platelet Volume 7.3; Monocytes # (A) 0.2 k/uL (0-1.0); Monocytes % (A) 4 %; Neutrophils # (A) 3.8 k/uL (1.3-7.7); Neutrophils % (A) 63 %; Platelet Count 188 k/uL (150-450); RBC 4.02 m/uL (3.80-5.40); RDW 14.4 % (11.5-15.5); WBC 6.1 k/uL (3.8-10.6)
[2022-11-25 12:44] LABS: ALT 13 U/L (4-34); AST 19 U/L (14-36); African American GFR (CKD) >90 (>60 ml/min/1.73 sqM); Alkaline Phosphatase 54 U/L (38-126); Anion Gap 7 mmol/L; Bilirubin, Delta 0.3 mg/dL (0.0-0.2); Blood Urea Nitrogen 8 mg/dL (7-17); Carbon Dioxide 29 mmol/L (22-30); Chloride 104 mmol/L (98-107); Glucose 85 mg/dL (74-99); Non-African American GFR(CKD) 78 (>60 ml/min/1.73 sqM); Potassium 4.1 mmol/L (3.5-5.1); Sodium 140 mmol/L (137-145); Total Bilirubin 0.3 mg/dL (0.2-1.3); Total Protein 6.5 g/dL (6.3-8.2)
--- NOTE | 2022-11-25 13:42 | P.PN ---
Progress Note - Text Progress Note Date: 11/25/22 Interval History: PAtient was seen today after eating her lunch. Patient was agreeable to seek a copy writer in the office today. She states that she was feeling very depressed today before coming into the hospital. She spoke about cutting herself. She is minimizing her need for medications and being in the hospital. He spoke a lot of different options for medications and patient was again agreeable to try Seroquel at nighttime. She was minimizing her marijuana use and also other drug use. She claims that she is going to some groups. States that she has levels of anxiety during the day. Claims that she has a history of manic episodes where she does not sleep for days and is impulsive. She states that at this time she is denying any auditory or visual hallucinations. She is denying any suicidal or homicidal ideations intent or plan. Mental Status Exam: General Appearance: Patient appears to be tall, stated age is alert, patient is uncooperative, fair hygiene and grooming. Behavior: Patient is patient is sitting in the chair, alert. Uncooperative at times and argumentative. Speech: Patient's speech is spontaneous. But needs much encouragement Mood/Affect: Mood is depressed at this time. Affect is constricted. Suicidality/Homicidality: She is denying any suicidal or homicidal ideations intent or plan. Perceptions: Negative perception of self and others, analyzing her drug use and need for hospitalization. Though content/process: Linear, tangential. Rationalizing. Memory and concentration: Appears fair, alert and oriented 3. Judgment and insight: Poor/superficial. Assessment Bipolar disorder, current episode depressed Seizure disorder Cannabis use disorder Benzodiazepine abuse Opiate abuse Nicotine dependence Plan: -Patient is admitted under involuntary status to MHU for stabilization of psychiatric symptoms and safety. Completed a second certificate and will be filed along with petition to the court's and will await referral and hearing date Medications: clonidine 0.1 mg by mouth twice a day. Bentyl 20 mg by mouth twice a day, Cymbalta repaced with effexor xr 75 mg daily for mood/anxiety, added seroquel 50 mg qhs for sleep/mood stabilization. consider adding a mood stabilizer if patient needs it. Hydroxyzine when necessary for agitation Keppra 500 mg every 12 hours -When necessary Ativan and Haldol for agitation/aggression. -SW on board for discharge planning. Encouraged the patient to participate in milieu. awaiting deferral and court hearing date
[2022-11-25] MEDS: LORazepam 1 MG TAB PO PRN (16:10)
[2022-11-25] MEDS ORDERED: QUEtiapine 50 MG TAB PO SCH (21:00)
[2022-11-25 22:45] LABS: Chol/HDL Ratio 3.99 Ratio; LDL Cholesterol,Calculated 101.5 mg/dL (0.0-131.0)
[2022-11-26] MEDS: FLUTICASONE 50MCG/SPRAY NASAL 16GM EA NOSTRIL SCH (08:13)
[2022-11-26] MEDS: NICOTINE 14MG/24HR PATCH TRANSDERM SCH (08:14)
[2022-11-26] MEDS: levETIRAcetam 500 MG TAB PO SCH ×2 (08:14→20:45)
[2022-11-26] MEDS: cloNIDine HCL 0.1 MG TAB PO SCH ×2 (08:14→20:45)
[2022-11-26] MEDS: VENLAFAXINE HCL ER 75 MG CAP PO SCH (08:14)
[2022-11-26] MEDS: DICYCLOMINE 20 MG TAB PO SCH ×2 (08:14→20:45)
[2022-11-26] MEDS: hydrOXYzine pamoate 25 MG CAP PO SCH ×3 (08:14→20:45)
[2022-11-26] MEDS: ONDANSETRON 4 MG TAB PO PRN (08:54)
[2022-11-26] MEDS: BUTALB/APAP/CAFF 50-325-40MG TAB PO PRN ×2 (08:54→13:08)
--- NOTE | 2022-11-26 13:10 | P.PN ---
Progress Note - Text Progress Note Date: 11/26/22 Interval History: Patient was seen today sitting in the lounge and was agreeable to seek a freelance writer in the office today. Patient continues to state that she is feeling depressed at times and also anxious. She states that she felt "hung over" this morning after taking the Seroquel. She states that she feels that she cannot tolerate the Seroquel very well and wanted to be discontinued. We spoke about other medication options including Depakote for mood stabilization and patient was agreeable to take this at nighttime. Patient states that she has been trying to go to groups and participate as best as she can. She asked for questions or the court process and when she can speak with the erisa attorney. She claims that she is eating fairly however was feeling nauseous this morning. She states that at this time she is denying any auditory or visual hallucinations. She is denying any suicidal or homicidal ideations intent or plan. Mental Status Exam: General Appearance: Patient appears to be tall, stated age is alert, patient is cooperative, fair hygiene and grooming. Behavior: Patient is patient is sitting in the chair, alert. More cooperative today. Speech: Patient's speech is spontaneous. Improving Mood/Affect: Mood is depressed at this time and also anxious. Affect is constricted. Suicidality/Homicidality: She is denying any suicidal or homicidal ideations intent or plan. Perceptions: Denying any auditory or visual hallucinations today. Though content/process: Linear, tangential. Rationalizing. Minimizing. Memory and concentration: Appears fair, alert and oriented 3. Judgment and insight: Poor/superficial, improving mildly Assessment Bipolar disorder, current episode depressed Seizure disorder Cannabis use disorder Benzodiazepine abuse Opiate abuse Nicotine dependence Plan: -Patient is admitted under involuntary status to MHU for stabilization of psychiatric symptoms and safety. Completed a second certificate and will be filed along with petition to the court's and will await referral and hearing date Medications: clonidine 0.1 mg by mouth twice a day. Bentyl 20 mg by mouth twice a day, continue with effexor xr 75 mg daily for mood/anxiety, continue seroquel and replace with lamictal 25 mg bid for mood stabilization. Hydroxyzine when necessary for agitation, continue Keppra 500 mg every 12 hours -When necessary Ativan and Haldol for agitation/aggression. -SW on board for discharge planning. Encouraged the patient to participate in milieu. awaiting deferral and court hearing date
[2022-11-26] MEDS: LORazepam 1 MG TAB PO PRN (13:13)
[2022-11-26] MEDS: lamoTRIgine 25 MG TAB PO SCH ×2 (13:45→20:46)
[2022-11-26] MEDS ORDERED: DIVALPROEX ER 500 MG TAB.ER.24H PO SCH (21:00)
[2022-11-27] MEDS: NICOTINE 14MG/24HR PATCH TRANSDERM SCH (08:29)
[2022-11-27] MEDS: cloNIDine HCL 0.1 MG TAB PO SCH ×2 (08:29→20:19)
[2022-11-27] MEDS: FLUTICASONE 50MCG/SPRAY NASAL 16GM EA NOSTRIL SCH (08:30)
[2022-11-27] MEDS: lamoTRIgine 25 MG TAB PO SCH ×2 (08:30→20:19)
[2022-11-27] MEDS: hydrOXYzine pamoate 25 MG CAP PO SCH ×3 (08:30→20:18)
[2022-11-27] MEDS: DICYCLOMINE 20 MG TAB PO SCH ×2 (08:30→20:19)
[2022-11-27] MEDS: VENLAFAXINE HCL ER 75 MG CAP PO SCH (08:30)
[2022-11-27] MEDS: levETIRAcetam 500 MG TAB PO SCH ×2 (08:31→20:19)
[2022-11-27] MEDS: LORazepam 1 MG TAB PO PRN ×2 (08:32→16:20)
[2022-11-27] MEDS: BUTALB/APAP/CAFF 50-325-40MG TAB PO PRN (09:17)
--- NOTE | 2022-11-27 10:44 | P.PN ---
Progress Note - Text Progress Note Date: 11/27/22 Interval History: Patient was seen today sitting in the lounge talking with another patient and was agreeable to be tried in the office today. Patient states that she is getting along with most patient however singled out one specific patient that she is not getting along with. She claims that "every time she is in my face and getting me upset". She states that she was crying a lot yesterday and trying to use coping skills to stay away from her. She states that she is trying to go to groups and participate as best she can. She claims that she is having some photosensitivity and claims that her pupils are dilated which she believes may be from the medications. She does claim that her mood is more stabilized and her depression and anxiety even mildly improving. She appears to be more future oriented. She claims that she has been speaking with her mother over the phone. She claims that she would like to possibly signed the deferral with the district attorney and she can. She states that her appetite is fair and her sleep is well at nighttime. She states that at this time she is denying any auditory or visual hallucinations. She is denying any suicidal or homicidal ideations intent or plan. Mental Status Exam: General Appearance: Patient appears to be tall, stated age is alert, patient is cooperative, fair hygiene and grooming. Behavior: Patient is patient is sitting in the chair, alert. More cooperative today. Irritable at times. Somewhat upset. Speech: Patient's speech is spontaneous. Improving Mood/Affect: Mood is mildly improving. Affect is upset however is congruent. Suicidality/Homicidality: She is denying any suicidal or homicidal ideations intent or plan. Perceptions: Denying any auditory or visual hallucinations today. Though content/process: Linear, tangential. Rationalizing. Focus on her symptoms. Memory and concentration: Appears fair, alert and oriented 3. Judgment and insight: improving mildly Assessment Bipolar disorder, current episode depressed Seizure disorder Cannabis use disorder Benzodiazepine abuse Opiate abuse Nicotine dependence Plan: -Patient is admitted under involuntary status to MHU for stabilization of psychiatric symptoms and safety. Completed a second certificate and will be filed along with petition to the court's and will await referral and hearing date Medications: clonidine 0.1 mg by mouth twice a day. Bentyl 20 mg by mouth twice a day, increase continue effexor xr 150 mg daily for mood/anxiety, decrease lamictal 25 mg bid for mood stabilization as patient is likely experiencing a/e photosensitivity, will cont to monitor. Hydroxyzine when necessary for agitation, continue Keppra 500 mg every 12 hours -When necessary Ativan and Haldol for agitation/aggression. -SW on board for discharge planning. Encouraged the patient to participate in milieu. awaiting deferral and court hearing date. porr d/c friday if patient continues to improve and ends up signing deferral
[2022-11-27] MEDS: ACETAMINOPHEN TAB 325 MG TAB PO PRN (12:06)
[2022-11-27] MEDS ORDERED: lamoTRIgine 25 MG TAB PO SCH (21:00)
[2022-11-28] MEDS: ACETAMINOPHEN TAB 325 MG TAB PO PRN ×2 (06:37→20:50)
[2022-11-28] MEDS: NICOTINE 14MG/24HR PATCH TRANSDERM SCH (08:39)
[2022-11-28] MEDS: lamoTRIgine 25 MG TAB PO SCH ×2 (08:40→20:49)
[2022-11-28] MEDS: VENLAFAXINE HCL ER 150 MG CAP PO SCH (08:40)
[2022-11-28] MEDS: FLUTICASONE 50MCG/SPRAY NASAL 16GM EA NOSTRIL SCH (08:40)
[2022-11-28] MEDS: hydrOXYzine pamoate 25 MG CAP PO SCH ×3 (08:40→20:49)
[2022-11-28] MEDS: cloNIDine HCL 0.1 MG TAB PO SCH ×2 (08:40→20:49)
[2022-11-28] MEDS: DICYCLOMINE 20 MG TAB PO SCH ×2 (08:41→20:49)
[2022-11-28] MEDS: levETIRAcetam 500 MG TAB PO SCH ×2 (08:41→20:49)
--- NOTE | 2022-11-28 10:39 | P.PN ---
Progress Note - Text Progress Note Date: 11/28/22 Interval History: Patient was seen today sitting in on group today and was participating. she cl aims that she is tryiung to use her coping skills well, and help other patients on the unit. she claims that her mood is stabilizing more now on the medications. she states that the photosensitivity is a bit better compared to yesterday. She does claim that her mood is more stabilized and her depression and anxiety even mildly improving. she continues to focus on discharge. appears to be more directable. She appears to be more future oriented. She claims that she has been speaking with her mother over the phone. continues to state that she has nt signed the deferral yet but plans on doing so. She states that her appetite is fair and her sleep is well at nighttime. She states that at this time she is denying any auditory or visual hallucinations. She is denying any suicidal or homicidal ideations intent or plan. Mental Status Exam: General Appearance: Patient appears to be tall, stated age is alert, patient is cooperative, fair hygiene and grooming. Behavior: Patient is patient is sitting in the chair, alert. More cooperative today. less Irritable today Speech: Patient's speech is spontaneous. Improving Mood/Affect: Mood is mildly improving. Affect is upset however is congruent. Suicidality/Homicidality: She is denying any suicidal or homicidal ideations intent or plan. Perceptions: Denying any auditory or visual hallucinations today. Though content/process: Linear, tangential. more Focus on discharge today. no delusions. Memory and concentration: Appears fair, alert and oriented 3. Judgment and insight: improving mildly Assessment Bipolar disorder, current episode depressed Seizure disorder Cannabis use disorder Benzodiazepine abuse Opiate abuse Nicotine dependence Plan: -Patient is admitted under involuntary status to [facility]HU for stabilization of psychiatric symptoms and safety. Completed a second certificate and will be filed along with petition to the court's and will await referral and hearing date Medications: clonidine 0.1 mg by mouth twice a day. Bentyl 20 mg by mouth twice a day, continue effexor xr 150 mg daily for mood/anxiety, lamictal 25 mg bid for mood stabilization/depression Hydroxyzine when necessary for agitation, continue Keppra 500 mg every 12 hours -When necessary Ativan and Haldol for agitation/aggression. -SW on board for discharge planning. Encouraged the patient to participate in milieu. awaiting deferral and court hearing date. poss d/c tomorrow if patient ends up signing deferral
[2022-11-28] MEDS: BUTALB/APAP/CAFF 50-325-40MG TAB PO PRN (12:07)
[2022-11-28] MEDS: LORazepam 1 MG TAB PO PRN (12:22)
[2022-11-29 06:46] VITALS: RESP 17; TEMP 97.9
[2022-11-29] MEDS: NICOTINE 14MG/24HR PATCH TRANSDERM SCH (08:29)
[2022-11-29] MEDS: hydrOXYzine pamoate 25 MG CAP PO SCH (08:30)
[2022-11-29] MEDS: FLUTICASONE 50MCG/SPRAY NASAL 16GM EA NOSTRIL SCH (08:30)
[2022-11-29] MEDS: cloNIDine HCL 0.1 MG TAB PO SCH (08:30)
[2022-11-29] MEDS: lamoTRIgine 25 MG TAB PO SCH (08:30)
[2022-11-29] MEDS: levETIRAcetam 500 MG TAB PO SCH (08:30)
[2022-11-29] MEDS: DICYCLOMINE 20 MG TAB PO SCH (08:30)
[2022-11-29] MEDS: VENLAFAXINE HCL ER 150 MG CAP PO SCH (08:30)
[2022-11-29] MEDS: BUTALB/APAP/CAFF 50-325-40MG TAB PO PRN (08:32)
[2022-11-29 08:35] VITALS: BP 114/80; PULSE 104
[2022-11-29] MEDS: ACETAMINOPHEN TAB 325 MG TAB PO PRN (11:40)
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
== END 2022-11-29 14:11 | disposition home or self-care (01) | DRG 753 ==
LOC: EC 19:01 → 3MHU 11-24 00:52
PROVIDERS: ADMIT Psychiatry & Neurology Psychiatry; ATTEND Psychiatry & Neurology Psychiatry
DX: F31.30 Bipolar disorder, current episode depressed, mild or moderate severity, unspecified (principal); G40.909 Epilepsy, unspecified, not intractable, without status epilepticus; F11.10 Opioid abuse, uncomplicated; F12.10 Cannabis abuse, uncomplicated; F13.10 Sedative, hypnotic or anxiolytic abuse, uncomplicated; R45.88 Nonsuicidal self-harm; X78.1XXA Intentional self-harm by knife, initial encounter; Z20.822 Contact with and (suspected) exposure to COVID-19; J45.909 Unspecified asthma, uncomplicated; M79.7 Fibromyalgia; K21.9 Gastro-esophageal reflux disease without esophagitis; S61.512A Laceration without foreign body of left wrist, initial encounter; G43.909 Migraine, unspecified, not intractable, without status migrainosus; I69.398 Other sequelae of cerebral infarction; H54.7 Unspecified visual loss; F90.9 Attention-deficit hyperactivity disorder, unspecified type; F17.210 Nicotine dependence, cigarettes, uncomplicated; Z71.6 Tobacco abuse counseling; F43.10 Post-traumatic stress disorder, unspecified; H40.9 Unspecified glaucoma; Z79.899 Other long term (current) drug therapy; Z88.2 Allergy status to sulfonamides; Z88.8 Allergy status to other drugs, medicaments and biological substances; Z91.014 Allergy to mammalian meats; Y92.009 Unspecified place in unspecified non-institutional (private) residence as the place of occurrence of the external cause; Z81.8 Family history of other mental and behavioral disorders; Z71.51 Drug abuse counseling and surveillance of drug abuser; Z71.41 Alcohol abuse counseling and surveillance of alcoholic
CPT/HCPCS: 80053; 80061; 80306; 81001; 81025; 82075; 82248; 83036; 84443; 85025; 87635; 90471; 90715; 99285

== ENCOUNTER 2023-02-18 12:09 | Emergency (ER) | payer OTHER ==
[2023-02-18 12:41] VITALS: RESP 18
[2023-02-18] MEDS ORDERED: DIPH,PERTUS(ACELL)TETVAC-LF 0.5 ML VIAL IM ONE (14:19)
[2023-02-18] MEDS ORDERED: IBUPROFEN 800 MG TAB PO STA (14:19)
--- NOTE | 2023-02-18 14:58 | XR ---
EXAMINATION TYPE: XR ankle complete LT DATE OF EXAM: 02/18/2023 2:40 PM INDICATION: Patient age:Female; 37 years old; Reason for study: injury; PHH. COMPARISON: None TECHNIQUE: The ankle is imaged in frontal, lateral and oblique projections. FINDINGS: There is no evidence of acute osseous pathology. The joint spaces are well-preserved without evidenc e of subluxation or dislocation. Kager's fat pad is intact. Mild soft tissue swelling around the ankl e. No radiopaque foreign bodies are identified. IMPRESSION: 1. No evidence of acute fracture. 2. Subcutaneous swelling around the ankle likely secondary to underlying soft tissue injury.
--- NOTE | 2023-02-18 14:59 | XR ---
EXAMINATION TYPE: XR wrist complete LT DATE OF EXAM: 02/18/2023 2:40 PM INDICATION: Patient age:Female; 37 years old; Reason for study: injury; COMPARISON: None TECHNIQUE: left wrist was examined in the. Frontal, navicular, lateral, and oblique. FINDINGS: No acute osseous pathology, joint dislocation, or joint effusion. Soft tissue swelling denita und the wrist. IMPRESSION: Soft tissue swelling around the wrist without acute osseous pathology.
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
[2023-02-18 15:26] VITALS: BP 146/96; PULSE 82; TEMP 97.9
== END 2023-02-18 15:26 | disposition home or self-care (01) ==
LOC: EC 12:09
DX: S69.92XA Unspecified injury of left wrist, hand and finger(s), initial encounter (principal); J45.909 Unspecified asthma, uncomplicated; F32.A Depression, unspecified; F41.9 Anxiety disorder, unspecified; F17.290 Nicotine dependence, other tobacco product, uncomplicated; Z88.2 Allergy status to sulfonamides; Z91.014 Allergy to mammalian meats; Z88.8 Allergy status to other drugs, medicaments and biological substances; Z79.899 Other long term (current) drug therapy; Z23 Encounter for immunization; Y04.0XXA Assault by unarmed brawl or fight, initial encounter
CPT/HCPCS: 90471; 90715; 99285

== ENCOUNTER 2023-06-14 10:24 | Emergency (ER) | payer OTHER ==
--- NOTE | 2023-06-14 10:44 | ED ---
General Adult HPI - General Chief complaint: Recheck/Abnormal Lab/Rx Stated complaint: Abn labs Time Seen by Provider: 06/14/23 10:33 Source: patient, RN notes reviewed Mode of arrival: ambulatory Limitations: no limitations - History of Present Illness Initial comments: 37-year-old male presents emergency Department with chief complaint of needing a drug screen. Patient states she was informed that upon release of group home she drug screen within 24 hours. She states that she is trying to follow-up with her psychiatric team and this is required. 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 She is followed very closely with her psychiatric team and they do know about this. - Related Data Home Medications Medication Instructions Recorded Confirmed Fluticasone Nasal [place] [Flonase 1 spr EA NOSTRIL DAILY 08/20/17 11/24/22 Nasal [place]] Butalb/APAP/Caff 50-325-40Mg 1 tab PO Q4H PRN 03/14/21 11/24/22 [Fioricet 50-325-40] Previous Rx's Medication Instructions Recorded Acetaminophen Tab [Tylenol] 650 mg PO Q4HR PRN tab 11/29/22 Dicyclomine [Bentyl] 20 mg PO BID 30 Days #60 tab 11/29/22 Nicotine 14Mg/24Hr Patch [Habitrol] 1 patch TRANSDERM DAILY 14 Days 11/29/22 #14 patch Venlafaxine HCl ER [Effexor XR] 150 mg PO DAILY 30 Days #30 cap 11/29/22 cloNIDine HCL 0.1 mg PO BID 30 Days #60 tab 11/29/22 hydrOXYzine pamoate [Vistaril] 25 mg PO TID 30 Days #90 cap 11/29/22 lamoTRIgine [LaMICtal] 25 mg PO BID 30 Days #60 tab 11/29/22 levETIRAcetam [Keppra] 500 mg PO Q12H 30 Days #60 tab 11/29/22 Allergies Allergy/AdvReac Type Severity Reaction Status Date / Time adhesive Allergy Rash, Verified 06/14/23 10:33 PEELS SKIN OFF AND BLEEDS divalproex sodium Allergy Hallucinati Verified 06/14/23 10:33 [From Depakote] ons Sulfa (Sulfonamide Allergy Anaphylaxis Verified 06/14/23 10:33 Antibiotics) aripiprazole [From Abilify] AdvReac SUICIDAL Verified 06/14/23 10:33 THOUGHTS, CUT HERSELF meat Allergy Anaphylaxis Uncoded 06/14/23 10:33 Review of Systems ROS Statement: Those systems with pertinent positive or pertinent negative responses have been documented in the HPI. ROS Other: All systems not noted in ROS Statement are negative. Past Medical History Past Medical History: Asthma, Eye Disorder, Fibromyalgia, GERD/Reflux, GI Bleed, Seizure Disorder, Skin Disorder Additional Past Medical History / Comment(s): HX VOMITING BLOOD. PSYCHOSOMATIC SEIZURE DISORDER, OCCASIONAL EPISODES OF INCREASED HR & BLOOD PRESSURE - Paroxymal Tachycardia, R/T ANXIETY. HX OCULAR STROKE LEFTT EYE, WITH DECREASED VISION, migraines, bilateral glaucoma. History of Any Multi-Drug Resistant Organisms: None Reported Past Surgical History: Orthopedic Surgery Additional Past Surgical History / Comment(s): RECONSTRUCTION LT SHOULDER X3. Past Anesthesia/Blood Transfusion Reactions: No Reported Reaction, Motion Sickness Past Psychological History: ADD/ADHD, Anxiety, Depression, PTSD Smoking Status: Vaper Past Alcohol Use History: None Reported Past Drug Use History: None Reported - Past Family History Mother Family Medical History: Asthma, Congestive Heart Failure (CHF), COPD, GERD/Reflux, Pulmonary Embolus Additional Family Medical History / Comment(s): PTSD, depression. General Exam Limitations: no limitations General appearance: alert, in no apparent distress Head exam: Present: atraumatic, normocephalic, normal inspection Respiratory exam: Present: normal lung sounds bilaterally. Absent: respiratory distress, wheezes, rales, rhonchi, stridor Cardiovascular Exam: Present: regular rate, normal rhythm, normal heart sounds. Absent: systolic murmur, diastolic murmur, rubs, gallop, clicks Neurological exam: Present: alert, oriented X3 Psychiatric exam: Present: anxious Skin exam: Present: warm, dry, intact, normal color. Absent: rash Course Vital Signs 06/14/23 06/14/23 10:30 12:33 Temperature 98.2 F 97.9 F Pulse Rate 109 H 88 Respiratory 20 18 Rate Blood Pressure 149/88 130/98 O2 Sat by Pulse 99 97 Oximetry Medical Decision Making - Medical Decision Making Was pt. sent in by a medical professional or institution (, PA, IMMIGRATION LAW SPECIALIST, urgent care, hospital, or long-term...) When possible be specific @ -No Did you speak to anyone other than the patient for history (EMS, parent, family, police, friend...)? What history was obtained from this source @ -No Did you review nursing and triage notes (agree or disagree)? Why? @ -I reviewed and agree with nursing and triage notes Were old charts reviewed (outside hosp., previous admission, EMS record, old EKG, old radiological studies, urgent care reports/EKG's, long-term records)? Report findings @ -No old charts were reviewed Differential Diagnosis (chest pain, altered mental status, abdominal pain women, abdominal pain men, vaginal bleeding, weakness, fever, dyspnea, syncope, headache, dizziness, GI bleed, back pain, seizure, CVA, palpatations, mental health, musculoskeletal)? @ -Drug abuse, drug screen EKG interpreted by me (3pts min.). @ -None X-rays interpreted by me (1pt min.). @ -None done CT interpreted by me (1pt min.). @ -None done U/S interpreted by me (1pt. min.). @ -None done What testing was considered but not performed or refused? (CT, X-rays, U/S, labs)? Why? @ -None What meds were considered but not given or refused? Why? @ -None Did you discuss the management of the patient with other professionals (jerry wu i.ePj Jaimes, PA, IMMIGRATION LAW SPECIALIST, lab, RT, psych nurse, director social service, control systems drafting officer, teacher, parole hearing officer, medical case worker)? Give summary @ -No Was smoking cessation discussed for >3mins.? @ -No Was critical care preformed (if so, how long)? @ -No Were there social determinants of health that impacted care today? How? (Homelessness, low income, unemployed, alcoholism, drug addiction, transportation, low edu. Level, literacy, decrease access to med. care, group home, rehab)? @ -No Was there de-escalation of care discussed even if they declined (Discuss DNR or withdrawal of care, Hospice)? DNR status @ -No What co-morbidities impacted this encounter? (DM, HTN, Smoking, COPD, CAD, Cancer, CVA, ARF, Chemo, Hep., AIDS, mental health diagnosis, sleep apnea, morbid obesity)? @ -None Was patient admitted / discharged? Hospital course, mention meds given and route, prescriptions, significant lab abnormalities, going to OR and other pertinent info. @ -Discharge patient presented for drug screen for personal reasons. Patient is discharged in stable condition Undiagnosed new problem with uncertain prognosis? @ -No Drug Therapy requiring intensive monitoring for toxicity (Heparin, Nitro, Insulin, Cardizem)? @ -No Were any procedures done? @ -No Diagnosis/symptom? @ -Drug screen Acute, or Chronic, or Acute on Chronic? @ -Acute Uncomplicated (without systemic symptoms) or Complicated (systemic symptoms)? @ -Uncomplicated Side effects of treatment? @ -No Exacerbation, Progression, or Severe Exacerbation? @ -No Poses a threat to life or bodily function? How? (Chest pain, [place], [place], pneumonia, PE, COPD, DKA, ARF, appy, cholecystitis, CVA, Diverticulitis, Homicidal, Suicidal, threat to staff... and all critical care pts) @ -No - Lab Data Lab Results 06/14/23 Range/Units 10:50 Urine Opiates Screen Not Detected (NotDetected) Ur Oxycodone Screen Not Detected (NotDetected) Urine Methadone Screen Not Detected (NotDetected) Ur Propoxyphene Screen Not Detected (NotDetected) Ur Barbiturates Screen Not Detected (NotDetected) U Tricyclic Antidepress Detected H (NotDetected) Ur Phencyclidine Scrn Not Detected (NotDetected) Ur Amphetamines Screen Not Detected (NotDetected) U Methamphetamines Scrn Not Detected (NotDetected) U Benzodiazepines Scrn Detected H (NotDetected) Urine Cocaine Screen Not Detected (NotDetected) U Marijuana (THC) Screen Detected H (NotDetected) Disposition Clinical Impression: Encounter for drug screening Disposition: HOME SELF-CARE Condition: Stable Additional Instructions: Please return to the Emergency Department if symptoms worsen or any other concerns. Is patient prescribed a controlled substance at d/c from ED?: No Referrals: Amilcar Taylor MD [Primary Care Provider] - 1-2 days Time of Disposition: 12:08
[2023-06-14 11:20] LABS: Amphetamine Screen,Urine Not Detected (NotDetected); Barbiturate Screen,Urine Not Detected (NotDetected); Benzodiazepines Screen,Urine Detected (NotDetected); Cocaine Screen,Urine Not Detected (NotDetected); Methadone Screen, Urine Not Detected (NotDetected); Opiate Screen,Urine Not Detected (NotDetected); Oxycodone Screen, Urine Not Detected (NotDetected); Phencyclidine Screen,Urine Not Detected (NotDetected); Tricyclic Antidepressant,Urine Detected (NotDetected); Urn Cannabinoid Scrn Detected (NotDetected)
[2023-06-14 12:49] VITALS: BP 130/98; PULSE 88; RESP 18; TEMP 97.9
== END 2023-06-14 12:33 | disposition home or self-care (01) ==
LOC: EC 10:24
DX: Z02.83 Encounter for blood-alcohol and blood-drug test (principal); J45.909 Unspecified asthma, uncomplicated; F17.290 Nicotine dependence, other tobacco product, uncomplicated; Z86.59 Personal history of other mental and behavioral disorders; Z91.018 Allergy to other foods; Z88.2 Allergy status to sulfonamides; Z88.8 Allergy status to other drugs, medicaments and biological substances
CPT/HCPCS: 80306; 99283

== ENCOUNTER 2023-12-06 02:05 | Emergency (ER) | payer OTHER ==
[2023-12-06 02:41] VITALS: TEMP 98.8
[2023-12-06 02:56] LABS: Basophils % (A) 0 %; Eosinophils % (A) 0 %; HCT 36.3 % (34.0-46.0); HGB 11.7 gm/dL (11.4-16.0); Lymphocytes # (A) 1.6 k/uL (1.0-4.8); Lymphocytes % (A) 19 %; MCH 29.7 pg (25.0-35.0); MCHC 32.2 g/dL (31.0-37.0); MCV 92.1 fL (80.0-100.0); Mean Platelet Volume 7.7; Monocytes # (A) 0.3 k/uL (0-1.0); Monocytes % (A) 3 %; Neutrophils # (A) 6.2 k/uL (1.3-7.7); Neutrophils % (A) 75 %; Platelet Count 237 k/uL (150-450); RBC 3.94 m/uL (3.80-5.40); RDW 15.9 % (11.5-15.5); WBC 8.3 k/uL (3.8-10.6)
--- NOTE | 2023-12-06 03:12 | XR ---
EXAMINATION TYPE: XR chest 1V portable DATE OF EXAM: 12/06/2023 COMPARISON: Prior chest x-ray October 29, 2022 HISTORY: Trauma TECHNIQUE: Single frontal view of the chest is obtained. FINDINGS: There is no focal air space opacity, pleural effusion, or pneumothorax seen. The cardiac silhouette size is stable and within normal limits. The osseous structures are intact. IMPRESSION: No acute process. No significant change from prior.
[2023-12-06 03:13] LABS: ALT 13 U/L (4-34); AST 18 U/L (14-36); African American GFR (CKD) >90 (>60 ml/min/1.73 sqM); Albumin 3.8 g/dL (3.5-5.0); Alkaline Phosphatase 71 U/L (38-126); Anion Gap 12 mmol/L; Blood Urea Nitrogen 7 mg/dL (7-17); Calcium 8.9 mg/dL (8.4-10.2); Carbon Dioxide 21 mmol/L (22-30); Chloride 111 mmol/L (98-107); Glucose 97 mg/dL (74-99); Non-African American GFR(CKD) >90 (>60 ml/min/1.73 sqM); Potassium 3.9 mmol/L (3.5-5.1); Sodium 144 mmol/L (137-145); Total Bilirubin 0.2 mg/dL (0.2-1.3); Total Protein 6.5 g/dL (6.3-8.2)
[2023-12-06 03:14] LABS: Alcohol 116 mg/dL
[2023-12-06 03:17] LABS: INR 0.9 (<1.2); Partial Thromboplastin Time 24.7 sec (22.0-30.0); Prothrombin Time 10.2 sec (10.0-12.5)
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
[2023-12-06 04:07] LABS: Amphetamine Screen,Urine Not Detected (NotDetected); Barbiturate Screen,Urine Not Detected (NotDetected); Benzodiazepines Screen,Urine Not Detected (NotDetected); Cocaine Screen,Urine Not Detected (NotDetected); Methadone Screen, Urine Not Detected (NotDetected); Opiate Screen,Urine Not Detected (NotDetected); Oxycodone Screen, Urine Not Detected (NotDetected); Phencyclidine Screen,Urine Not Detected (NotDetected); Tricyclic Antidepressant,Urine Not Detected (NotDetected); Urn Cannabinoid Scrn Not Detected (NotDetected)
[2023-12-06] MEDS: ONDANSETRON 4 MG/2 ML VIAL IVP STA ×2 (04:51→06:25)
[2023-12-06] MEDS: SODIUM CHLORIDE 0.9% 1,000 ML IV ONE (04:52)
--- NOTE | 2023-12-06 05:48 | ED ---
Fall HPI - General Chief Complaint: Fall Stated Complaint: Fall, Neck Pain Time Seen by Provider: 12/06/23 02:09 Source: patient, EMS Mode of arrival: EMS - History of Present Illness Initial Comments: This patient is a 38-year-old woman who presents to have evaluation after having fallen down flight of stairs. The patient had been drinking and fell. There may have been brief loss of consciousness. Patient complains of significant left facial pain, swelling, neck pain. 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: no Place Fall Occurred: home Loss of Consciousness: unsure Prolonged Down Time?: no Symptoms Prior to Fall: none Location: head, face, neck Severity: moderate Context: alcohol use Associated Symptoms: denies - Related Data Home Medications Medication Instructions Recorded Confirmed Fluticasone Nasal [place] [Flonase 1 spr EA NOSTRIL DAILY 08/20/17 11/24/22 Nasal [place]] Butalb/APAP/Caff 50-325-40Mg 1 tab PO Q4H PRN 03/14/21 11/24/22 [Fioricet 50-325-40] Previous Rx's Medication Instructions Recorded Acetaminophen Tab [Tylenol] 650 mg PO Q4HR PRN tab 11/29/22 Dicyclomine [Bentyl] 20 mg PO BID 30 Days #60 tab 11/29/22 Nicotine 14Mg/24Hr Patch [Habitrol] 1 patch TRANSDERM DAILY 14 Days 11/29/22 #14 patch Venlafaxine HCl ER [Effexor XR] 150 mg PO DAILY 30 Days #30 cap 11/29/22 cloNIDine HCL 0.1 mg PO BID 30 Days #60 tab 11/29/22 hydrOXYzine pamoate [Vistaril] 25 mg PO TID 30 Days #90 cap 11/29/22 lamoTRIgine [LaMICtal] 25 mg PO BID 30 Days #60 tab 11/29/22 levETIRAcetam [Keppra] 500 mg PO Q12H 30 Days #60 tab 11/29/22 Allergies Allergy/AdvReac Type Severity Reaction Status Date / Time adhesive Allergy Rash, Verified 06/14/23 10:33 PEELS SKIN OFF AND BLEEDS divalproex sodium Allergy Hallucinati Verified 06/14/23 10:33 [From Depakote] ons Sulfa (Sulfonamide Allergy Anaphylaxis Verified 06/14/23 10:33 Antibiotics) aripiprazole [From Abilify] AdvReac SUICIDAL Verified 06/14/23 10:33 THOUGHTS, CUT HERSELF meat Allergy Anaphylaxis Uncoded 06/14/23 10:33 Review of Systems ROS Statement: Those systems with pertinent positive or pertinent negative responses have been documented in the HPI. ROS Other: All systems not noted in ROS Statement are negative. Constitutional: Denies: fever Eyes: Denies: vision change Respiratory: Denies: cough, dyspnea Cardiovascular: Reports: syncope. Denies: chest pain, palpitations Gastrointestinal: Denies: abdominal pain, vomiting, diarrhea Genitourinary: Denies: dysuria, hematuria Musculoskeletal: Denies: back pain Skin: Denies: rash Neurological: Reports: headache. Denies: weakness, numbness Past Medical History Past Medical History: Asthma, Eye Disorder, Fibromyalgia, GERD/Reflux, GI Bleed, Seizure Disorder, Skin Disorder Additional Past Medical History / Comment(s): HX VOMITING BLOOD. PSYCHOSOMATIC SEIZURE DISORDER, OCCASIONAL EPISODES OF INCREASED HR & BLOOD PRESSURE - Paroxymal Tachycardia, R/T ANXIETY. HX OCULAR STROKE LEFTT EYE, WITH DECREASED VISION, migraines, bilateral glaucoma. History of Any Multi-Drug Resistant Organisms: None Reported Past Surgical History: Orthopedic Surgery Additional Past Surgical History / Comment(s): RECONSTRUCTION LT SHOULDER X3. Past Anesthesia/Blood Transfusion Reactions: No Reported Reaction, Motion Sickness Past Psychological History: ADD/ADHD, Anxiety, Depression, PTSD Smoking Status: Vaper Past Alcohol Use History: Occasional Past Drug Use History: None Reported - Past Family History Mother Family Medical History: Asthma, Congestive Heart Failure (CHF), COPD, GERD/Reflux, Pulmonary Embolus Additional Family Medical History / Comment(s): PTSD, depression. General Exam Limitations: no limitations General appearance: alert, appears intoxicated Head exam: Present: normocephalic Eye exam: Present: PERRL, EOMI, nystagmus, periorbital swelling, periorbital tenderness. Absent: scleral icterus, conjunctival injection ENT exam: Present: normal oropharynx, TM's normal bilaterally, normal external ear exam Neck exam: Present: normal inspection, tenderness Respiratory exam: Present: normal lung sounds bilaterally. Absent: respiratory distress, wheezes, rales, rhonchi, stridor Cardiovascular Exam: Present: regular rate, normal rhythm, normal heart sounds. Absent: systolic murmur, diastolic murmur, rubs, gallop GI/Abdominal exam: Present: soft. Absent: distended, tenderness, guarding, rebound, rigid, mass Extremities exam: Present: normal inspection, normal capillary refill. Absent: pedal edema, calf tenderness Back exam: Present: normal inspection. Absent: CVA tenderness (R), CVA tenderness (L) Neurological exam: Present: alert, oriented X3, CN II-XII intact. Absent: motor sensory deficit Skin exam: Present: warm, dry, intact, normal color. Absent: rash Course Vital Signs 12/06/23 12/06/23 12/06/23 02:06 02:16 03:30 Temperature 98.8 F Pulse Rate 94 94 87 Respiratory 18 18 18 Rate Blood Pressure 120/80 120/80 127/84 O2 Sat by Pulse 100 96 94 L Oximetry 12/06/23 12/06/23 12/06/23 04:00 05:00 06:00 Temperature Pulse Rate 84 85 84 Respiratory 16 16 16 Rate Blood Pressure 102/72 129/87 127/97 O2 Sat by Pulse 98 97 98 Oximetry Medical Decision Making - Medical Decision Making Patient is a 38-year-old woman who presents after falling down stairs. On exam has facial swelling and tenderness over the left zygoma. There is concern for fracture due to mechanism of injury. The patient is sent for CT scan of the b rain and C-spine as well as facial bones that I interpreted as negative for acute bony injury. Negative for intracranial hemorrhage Was pt. sent in by a medical professional or institution (ROSALIA Jaimes, KNITTING MACHINE OPERATOR HELPER, urgent care, hospital, or retirement...) When possible be specific @ -[No] Did you speak to anyone other than the patient for history (EMS, parent, family, police, friend...)? What history was obtained from this source @ -[No] Did you review nursing and triage notes (agree or disagree)? Why? @ -[I reviewed and agree with nursing and triage notes] Were old charts reviewed (outside hosp., previous admission, EMS record, old EKG, old radiological studies, urgent care reports/EKG's, retirement records)? Report findings @ -[No old charts were reviewed] Differential Diagnosis (chest pain, altered mental status, abdominal pain women, abdominal pain men, vaginal bleeding, weakness, fever, dyspnea, syncope, headache, dizziness, GI bleed, back pain, seizure, CVA, palpatations, mental health, musculoskeletal)? @ -[Differential Musculoskeletal Muscular strain, contusion, ligament sprain, fracture, arthritis, septic arthritis, bursitis, cellulitis, muscle spasm, nerve compression, DVT, arterial occlusion, herpes zoster, electrolyte abnormality, tumor.... This is not meant to be in all inclusive list EKG interpreted by me (3pts min.). @ -[I interpreted as above] X-rays interpreted by me (1pt min.). @ -[None done] CT interpreted by me (1pt min.). @ -[I interpreted as above U/S interpreted by me (1pt. min.). @ -[None done] What testing was considered but not performed or refused? (CT, X-rays, U/S, labs)? Why? @ -[None] What meds were considered but not given or refused? Why? @ -[None] Did you discuss the management of the patient with other professionals (professionals i.e. , PA, KNITTING MACHINE OPERATOR HELPER, lab, RT, psych nurse, dialysis social worker, adoption worker, teacher, sustainability officer, catalytic case operator)? Give summary @ -[No] Was smoking cessation discussed for >3mins.? @ -[No] Was critical care preformed (if so, how long)? @ -[No] Were there social determinants of health that impacted care today? How? (Homelessness, low income, unemployed, alcoholism, drug addiction, transportation, low edu. Level, literacy, decrease access to med. care, [facility], rehab)? @ -[No] Was there de-escalation of care discussed even if they declined (Discuss DNR or withdrawal of care, Hospice)? DNR status @ -[No] What co-morbidities impacted this encounter? (DM, HTN, Smoking, COPD, CAD, Cancer, CVA, ARF, Chemo, Hep., AIDS, mental health diagnosis, sleep apnea, morbid obesity)? @ -[None] Was patient admitted / discharged? Hospital course, mention meds given and route, prescriptions, significant lab abnormalities, going to OR and other pertinent info. @ -[hospital course] Undiagnosed new problem with uncertain prognosis? @ -[No] Drug Therapy requiring intensive monitoring for toxicity (Heparin, Nitro, Insulin, Cardizem)? @ -[No] Were any procedures done? @ -[No] Diagnosis/symptom? @ -[Fall injury Acute alcohol intoxication Acute left facial contusion Acute closed head injury Acute, or Chronic, or Acute on Chronic? @ -[Acute Uncomplicated (without systemic symptoms) or Complicated (systemic symptoms)? @ -[Uncomplicated Side effects of treatment? @ -[No] Exacerbation, Progression, or Severe Exacerbation? @ -[No] Poses a threat to life or bodily function? How? (Chest pain, [place], [place], pneumonia, PE, COPD, DKA, ARF, appy, cholecystitis, CVA, Diverticulitis, Homicidal, Suicidal, threat to staff... and all critical care pts) @ -[No] - Lab Data Result diagrams: 12/06/23 02:30 12/06/23 02:30 Lab Results 12/06/23 12/06/23 12/06/23 Range/Units 02:30 02:30 02:30 WBC 8.3 (3.8-10.6) k/uL RBC 3.94 (3.80-5.40) m/uL Hgb 11.7 (11.4-16.0) gm/dL Hct 36.3 (34.0-46.0) % MCV 92.1 (80.0-100.0) fL MCH 29.7 (25.0-35.0) pg MCHC 32.2 (31.0-37.0) g/dL RDW 15.9 H (11.5-15.5) % Plt Count 237 (150-450) k/uL MPV 7.7 Neutrophils % 75 % Lymphocytes % 19 % Monocytes % 3 % Eosinophils % 0 % Basophils % 0 % Neutrophils # 6.2 (1.3-7.7) k/uL Lymphocytes # 1.6 (1.0-4.8) k/uL Monocytes # 0.3 (0-1.0) k/uL Eosinophils # 0.0 (0-0.7) k/uL Basophils # 0.0 (0-0.2) k/uL PT 10.2 (10.0-12.5) sec INR 0.9 (<1.2) APTT 24.7 (22.0-30.0) sec Sodium 144 (137-145) mmol/L Potassium 3.9 (3.5-5.1) mmol/L Chloride 111 H (98-107) mmol/L Carbon Dioxide 21 L (22-30) mmol/L Anion Gap 12 mmol/L BUN 7 (7-17) mg/dL Creatinine 0.80 (0.52-1.04) mg/dL Est GFR (CKD-EPI)AfAm >90 (>60 ml/min/1.73 sqM) Est GFR (CKD-EPI)NonAf >90 (>60 ml/min/1.73 sqM) Glucose 97 (74-99) mg/dL Lactic Ac Sepsis Rflx Plasma Lactic Acid Perfecto (0.7-2.0) mmol/L Calcium 8.9 (8.4-10.2) mg/dL Total Bilirubin 0.2 (0.2-1.3) mg/dL AST 18 (14-36) U/L ALT 13 (4-34) U/L Alkaline Phosphatase 71 (38-126) U/L Troponin I (0.000-0.034) ng/mL Total Protein 6.5 (6.3-8.2) g/dL Albumin 3.8 (3.5-5.0) g/dL Urine HCG, Qual (Not Detectd) Urine Opiates Screen (NotDetected) Ur Oxycodone Screen (NotDetected) Urine Methadone Screen (NotDetected) Ur Barbiturates Screen (NotDetected) U Tricyclic Antidepress (NotDetected) Ur Phencyclidine Scrn (NotDetected) Ur Amphetamines Screen (NotDetected) U Methamphetamines Scrn (NotDetected) U Benzodiazepines Scrn (NotDetected) Urine Cocaine Screen (NotDetected) U Marijuana (THC) Screen (NotDetected) Serum Alcohol 116 mg/dL Blood Type Blood Type Recheck Bld Type Recheck Status Antibody Screen Spec Expiration Date 12/06/23 12/06/23 12/06/23 Range/Units 02:30 02:30 02:35 WBC (3.8-10.6) k/uL RBC (3.80-5.40) m/uL Hgb (11.4-16.0) gm/dL Hct (34.0-46.0) % MCV (80.0-100.0) fL MCH (25.0-35.0) pg MCHC (31.0-37.0) g/dL RDW (11.5-15.5) % Plt Count (150-450) k/uL MPV Neutrophils % % Lymphocytes % % Monocytes % % Eosinophils % % Basophils % % Neutrophils # (1.3-7.7) k/uL Lymphocytes # (1.0-4.8) k/uL Monocytes # (0-1.0) k/uL Eosinophils # (0-0.7) k/uL Basophils # (0-0.2) k/uL PT (10.0-12.5) sec INR (<1.2) APTT (22.0-30.0) sec Sodium (137-145) mmol/L Potassium (3.5-5.1) mmol/L Chloride (98-107) mmol/L Carbon Dioxide (22-30) mmol/L Anion Gap mmol/L BUN (7-17) mg/dL Creatinine (0.52-1.04) mg/dL Est GFR (CKD-EPI)AfAm (>60 ml/min/1.73 sqM) Est GFR (CKD-EPI)NonAf (>60 ml/min/1.73 sqM) Glucose (74-99) mg/dL Lactic Ac Sepsis Rflx Plasma Lactic Acid Perfecto 2.5 H* (0.7-2.0) mmol/L Calcium (8.4-10.2) mg/dL Total Bilirubin (0.2-1.3) mg/dL AST (14-36) U/L ALT (4-34) U/L Alkaline Phosphatase (38-126) U/L Troponin I <0.012 (0.000-0.034) ng/mL Total Protein (6.3-8.2) g/dL Albumin (3.5-5.0) g/dL Urine HCG, Qual (Not Detectd) Urine Opiates Screen (NotDetected) Ur Oxycodone Screen (NotDetected) Urine Methadone Screen (NotDetected) Ur Barbiturates Screen (NotDetected) U Tricyclic Antidepress (NotDetected) Ur Phencyclidine Scrn (NotDetected) Ur Amphetamines Screen (NotDetected) U Methamphetamines Scrn (NotDetected) U Benzodiazepines Scrn (NotDetected) Urine Cocaine Screen (NotDetected) U Marijuana (THC) Screen (NotDetected) Serum Alcohol mg/dL Blood Type O Positive Blood Type Recheck O Pos Bld Type Recheck Status No Antibody Screen NEGATIVE Spec Expiration Date 12/09/2023 - 233412/06/23 12/06/23 12/06/23 Range/Units 03:05 03:05 03:15 WBC (3.8-10.6) k/uL RBC (3.80-5.40) m/uL Hgb (11.4-16.0) gm/dL Hct (34.0-46.0) % MCV (80.0-100.0) fL MCH (25.0-35.0) pg MCHC (31.0-37.0) g/dL RDW (11.5-15.5) % Plt Count (150-450) k/uL MPV Neutrophils % % Lymphocytes % % Monocytes % % Eosinophils % % Basophils % % Neutrophils # (1.3-7.7) k/uL Lymphocytes # (1.0-4.8) k/uL Monocytes # (0-1.0) k/uL Eosinophils # (0-0.7) k/uL Basophils # (0-0.2) k/uL PT (10.0-12.5) sec INR (<1.2) APTT (22.0-30.0) sec Sodium (137-145) mmol/L Potassium (3.5-5.1) mmol/L Chloride (98-107) mmol/L Carbon Dioxide (22-30) mmol/L Anion Gap mmol/L BUN (7-17) mg/dL Creatinine (0.52-1.04) mg/dL Est GFR (CKD-EPI)AfAm (>60 ml/min/1.73 sqM) Est GFR (CKD-EPI)NonAf (>60 ml/min/1.73 sqM) Glucose (74-99) mg/dL Lactic Ac Sepsis Rflx Y Plasma Lactic Acid Perfecto (0.7-2.0) mmol/L Calcium (8.4-10.2) mg/dL Total Bilirubin (0.2-1.3) mg/dL AST (14-36) U/L ALT (4-34) U/L Alkaline Phosphatase (38-126) U/L Troponin I (0.000-0.034) ng/mL Total Protein (6.3-8.2) g/dL Albumin (3.5-5.0) g/dL Urine HCG, Qual Not Detected (Not Detectd) Urine Opiates Screen Not Detected (NotDetected) Ur Oxycodone Screen Not Detected (NotDetected) Urine Methadone Screen Not Detected (NotDetected) Ur Barbiturates Screen Not Detected (NotDetected) U Tricyclic Antidepress Not Detected (NotDetected) Ur Phencyclidine Scrn Not Detected (NotDetected) Ur Amphetamines Screen Not Detected (NotDetected) U Methamphetamines Scrn Not Detected (NotDetected) U Benzodiazepines Scrn Not Detected (NotDetected) Urine Cocaine Screen Not Detected (NotDetected) U Marijuana (THC) Screen Not Detected (NotDetected) Serum Alcohol mg/dL Blood Type Blood Type Recheck Bld Type Recheck Status Antibody Screen Spec Expiration Date 12/06/23 Range/Units 06:28 WBC (3.8-10.6) k/uL RBC (3.80-5.40) m/uL Hgb (11.4-16.0) gm/dL Hct (34.0-46.0) % MCV (80.0-100.0) fL MCH (25.0-35.0) pg MCHC (31.0-37.0) g/dL RDW (11.5-15.5) % Plt Count (150-450) k/uL MPV Neutrophils % % Lymphocytes % % Monocytes % % Eosinophils % % Basophils % % Neutrophils # (1.3-7.7) k/uL Lymphocytes # (1.0-4.8) k/uL Monocytes # (0-1.0) k/uL Eosinophils # (0-0.7) k/uL Basophils # (0-0.2) k/uL PT (10.0-12.5) sec INR (<1.2) APTT (22.0-30.0) sec Sodium (137-145) mmol/L Potassium (3.5-5.1) mmol/L Chloride (98-107) mmol/L Carbon Dioxide (22-30) mmol/L Anion Gap mmol/L BUN (7-17) mg/dL Creatinine (0.52-1.04) mg/dL Est GFR (CKD-EPI)AfAm (>60 ml/min/1.73 sqM) Est GFR (CKD-EPI)NonAf (>60 ml/min/1.73 sqM) Glucose (74-99) mg/dL Lactic Ac Sepsis Rflx Plasma Lactic Acid Perfecto 1.8 (0.7-2.0) mmol/L Calcium (8.4-10.2) mg/dL Total Bilirubin (0.2-1.3) mg/dL AST (14-36) U/L ALT (4-34) U/L Alkaline Phosphatase (38-126) U/L Troponin I (0.000-0.034) ng/mL Total Protein (6.3-8.2) g/dL Albumin (3.5-5.0) g/dL Urine HCG, Qual (Not Detectd) Urine Opiates Screen (NotDetected) Ur Oxycodone Screen (NotDetected) Urine Methadone Screen (NotDetected) Ur Barbiturates Screen (NotDetected) U Tricyclic Antidepress (NotDetected) Ur Phencyclidine Scrn (NotDetected) Ur Amphetamines Screen (NotDetected) U Methamphetamines Scrn (NotDetected) U Benzodiazepines Scrn (NotDetected) Urine Cocaine Screen (NotDetected) U Marijuana (THC) Screen (NotDetected) Serum Alcohol mg/dL Blood Type Blood Type Recheck Bld Type Recheck Status Antibody Screen Spec Expiration Date - EKG Data -: EKG Interpreted by Nm EKG shows normal: sinus rhythm, axis (Normal), intervals (Normal), QRS complexes (Normal) Rate: normal (Rate 87 bpm) Interpretation: normal EKG Disposition Clinical Impression: Fall, Facial contusion, Minor head injury, Alcohol intoxication Disposition: HOME SELF-CARE Condition: Good Instructions (If sedation given, give patient instructions): Contusion in Adults (ED) Is patient prescribed a controlled substance at d/c from ED?: No Referrals: Amilcar Taylor MD [Primary Care Provider] - 1-2 days
[2023-12-06 06:47] VITALS: BP 127/97; PULSE 84
[2023-12-06 06:48] VITALS: RESP 16
== END 2023-12-06 06:50 | disposition home or self-care (01) ==
LOC: EC 02:05
DX: S00.83XA Contusion of other part of head, initial encounter (principal); F10.129 Alcohol abuse with intoxication, unspecified; Y90.5 Blood alcohol level of 100-119 mg/100 ml; F17.290 Nicotine dependence, other tobacco product, uncomplicated; Z88.8 Allergy status to other drugs, medicaments and biological substances; Z88.1 Allergy status to other antibiotic agents; Z88.2 Allergy status to sulfonamides; Z91.018 Allergy to other foods; W10.9XXA Fall (on) (from) unspecified stairs and steps, initial encounter; Y92.009 Unspecified place in unspecified non-institutional (private) residence as the place of occurrence of the external cause
CPT/HCPCS: 36415; 93005; 86900; 86901; 80053; 83605; 84484; 85025; 85610; 85730; 86850; 81025; 80306; 71045; 72125; 70486; 70450; 99285; 96374; 96376; 96361; G0480; J2405; 80320

== ENCOUNTER 2024-12-01 11:23 | Emergency (ER) | payer OTHER ==
--- NOTE | 2024-12-01 12:14 | ED ---
Overdose HPI - General Source: RN notes reviewed, old records reviewed Mode of arrival: EMS Limitations: altered mental status, physical limitation - History of Present Illness MD Complaint: intentional overdose, accidental overdose, other (Unsure) -: unknown Intent: unwilling to say How Overdose Was Discovered: called 911 Context: Intentional Overdose: drug/ETOH problems Context: Accidental Overdose: wanted to get high Associated Symptoms: depression Treatments Prior to Arrival: none <Aamir Adams - Last Filed: 12/01/24 13:26> <Tank Saldaña - Last Filed: 12/01/24 16:22> - General Stated Complaint: overdose Time Seen by Provider: 12/01/24 11:29 - History of Present Illness Initial Comments: This is a 39 female to the ER for evaluation patient presents today for evaluation regards to severe weakness patient is presenting today for evaluation of altered mental status found acting inappropriately in public situation, patient was sedated and concern for overdose concern for psychiatric illness (Aamir Adams) - Related Data Home Medications Medication Instructions Recorded Confirmed Latanoprost [Latanoprost 0.005%] 1 drop BOTH EYES HS 12/01/24 12/01/24 Ondansetron [Zofran] 4 mg PO BID PRN 12/01/24 12/01/24 QUEtiapine [SEROquel] 200 mg PO HS 12/01/24 12/01/24 hydrOXYzine pamoate [Vistaril] 50 mg PO TID 12/01/24 12/01/24 lamoTRIgine [LaMICtal] 50 mg PO DAILY 12/01/24 12/01/24 Previous Rx's Medication Instructions Recorded Dicyclomine [Bentyl] 20 mg PO BID 30 Days #60 tab 11/29/22 Venlafaxine HCl ER [Effexor XR] 150 mg PO DAILY 30 Days #30 cap 11/29/22 cloNIDine HCL 0.1 mg PO BID 30 Days #60 tab 11/29/22 levETIRAcetam [Keppra] 500 mg PO Q12H 30 Days #60 tab 11/29/22 Allergies Allergy/AdvReac Type Severity Reaction Status Date / Time adhesive Allergy Rash, Verified 12/01/24 12:47 PEELS SKIN OFF AND BLEEDS Sulfa (Sulfonamide Allergy Anaphylaxis Verified 12/01/24 12:47 Antibiotics) aripiprazole [From Abilify] AdvReac SUICIDAL Verified 12/01/24 12:47 THOUGHTS, CUT HERSELF divalproex sodium AdvReac Hallucinati Verified 12/01/24 12:47 [From Depakote] ons risperidone [From Risperdal] AdvReac Hallucinati Verified 12/01/24 12:47 ons meat Allergy Anaphylaxis Uncoded 12/01/24 12:47 Review of Systems ROS Other: All systems not noted in ROS Statement are negative. <Aamir Adams - Last Filed: 12/01/24 13:26> ROS Other: All systems not noted in ROS Statement are negative. <Tank Saldaña - Last Filed: 12/01/24 16:22> ROS Statement: Those systems with pertinent positive or pertinent negative responses have been documented in the HPI. Past Medical History Past Medical History: Asthma, Eye Disorder, Fibromyalgia, GERD/Reflux, GI Bleed, Seizure Disorder, Skin Disorder Additional Past Medical History / Comment(s): HX VOMITING BLOOD. PSYCHOSOMATIC SEIZURE DISORDER, OCCASIONAL EPISODES OF INCREASED HR & BLOOD PRESSURE - Paroxymal Tachycardia, R/T ANXIETY. HX OCULAR STROKE LEFTT EYE, WITH DECREASED VISION, migraines, bilateral glaucoma. History of Any Multi-Drug Resistant Organisms: None Reported Past Surgical History: Orthopedic Surgery Additional Past Surgical History / Comment(s): RECONSTRUCTION LT SHOULDER X3. Past Anesthesia/Blood Transfusion Reactions: No Reported Reaction, Motion Sickness Past Psychological History: ADD/ADHD, Anxiety, Depression, PTSD Smoking Status: Vaper Past Alcohol Use History: Occasional Past Drug Use History: None Reported - Past Family History Mother Family Medical History: Asthma, Congestive Heart Failure (CHF), COPD, GERD/Reflux, Pulmonary Embolus Additional Family Medical History / Comment(s): PTSD, depression. <Aamir Adams - Last Filed: 12/01/24 13:26> General Exam General appearance: alert, in no apparent distress Head exam: Present: atraumatic, normocephalic, normal inspection Eye exam: Present: normal appearance, PERRL, EOMI. Absent: scleral icterus, conjunctival injection, periorbital swelling ENT exam: Present: normal exam, mucous membranes moist Neck exam: Present: normal inspection. Absent: tenderness, meningismus, lymphadenopathy Respiratory exam: Present: normal lung sounds bilaterally. Absent: respiratory distress, wheezes, rales, rhonchi, stridor Cardiovascular Exam: Present: regular rate, normal rhythm, normal heart sounds. Absent: systolic murmur, diastolic murmur, rubs, gallop, clicks GI/Abdominal exam: Present: soft, normal bowel sounds. Absent: distended, tenderness, guarding, rebound, rigid Extremities exam: Present: normal inspection, full ROM, normal capillary refill. Absent: tenderness, pedal edema, joint swelling, calf tenderness Back exam: Present: normal inspection Neurological exam: Present: alert, oriented X3, CN II-XII intact Psychiatric exam: Present: normal affect, normal mood Skin exam: Present: warm, dry, intact, normal color. Absent: rash <Aamir Adams - Last Filed: 12/01/24 13:26> Course <Aamir Adams - Last Filed: 12/01/24 13:26> Vital Signs 12/01/24 12/01/24 11:57 15:09 Temperature 98.8 F Pulse Rate 86 76 Respiratory 16 16 Rate Blood Pressure 112/73 100/66 O2 Sat by Pulse 98 100 Oximetry - Reevaluation(s) Reevaluation #1: 12/01/24 13:28 Medical record is reviewed (Aamir Adams) Reevaluation #2: 12/01/24 13:28 Medically clear for psychiatric evaluation (Aamir Adams) Reevaluation #3: Differential Mental Health Depression, anxiety, bipolar, psychosis, schizophrenia, borderline personality, situational depression, adjustment disorder, behavioral disorder, brain tumor, malingering, substance abuse, encephalopathy, medication reaction, dementia, hypothyroidism, degenerative neurologic disorder, lupus.... This is not meant to be all-inclusive list (Aamir Adams) Medical Decision Making - Lab Data Result diagrams: 12/01/24 12:50 12/01/24 12:50 - EKG Data -: EKG Interpreted by Me (EKG is sinus 84 IA 138 QRS 81 QTc 395) <Aamir Adams - Last Filed: 12/01/24 13:26> - Lab Data Result diagrams: 12/01/24 12:50 12/01/24 12:50 <Tank Saldaña - Last Filed: 12/01/24 16:22> - Medical Decision Making Patient medically cleared by previous provider. EPS evaluated the patient and determined that she does not meet inpatient criteria for psychiatric care. She will be discharged home with a safety plan. Patient originally presented with excessive benzodiazepine use as well as THC edibles prior to arrival when she had a court date. Diagnosis/symptom? @ -Encounter for psychiatric evaluation Acute, or Chronic, or Acute on Chronic? @ -Acute Uncomplicated (without systemic symptoms) or Complicated (systemic symptoms)? @ -Uncomplicated Side effects of treatment? @ -None Exacerbation, Progression, or Severe Exacerbation] @ -No Poses a threat to life or bodily function? @ -Unlikely at this time (Tank Saldaña) - Lab Data Lab Results 12/01/24 12/01/24 12/01/24 Range/Units 12:50 12:50 15:16 WBC 4.7 (3.8-10.6) k/uL RBC 3.94 (3.80-5.40) m/uL Hgb 10.5 L (11.4-16.0) gm/dL Hct 32.9 L (34.0-46.0) % MCV 83.5 (80.0-100.0) fL MCH 26.7 (25.0-35.0) pg MCHC 32.0 (31.0-37.0) g/dL RDW 15.7 H (11.5-15.5) % Plt Count 229 (150-450) k/uL MPV 7.0 Neutrophils % 63 % Lymphocytes % 29 % Monocytes % 5 % Eosinophils % 1 % Basophils % 0 % Neutrophils # 2.9 (1.3-7.7) k/uL Lymphocytes # 1.4 (1.0-4.8) k/uL Monocytes # 0.2 (0-1.0) k/uL Eosinophils # 0.1 (0-0.7) k/uL Basophils # 0.0 (0-0.2) k/uL Hypochromasia Moderate Sodium 135 L (137-145) mmol/L Potassium 4.3 (3.5-5.1) mmol/L Chloride 104 (98-107) mmol/L Carbon Dioxide 26 (22-30) mmol/L Anion Gap 5 mmol/L BUN 14 (7-17) mg/dL Creatinine 0.80 (0.52-1.04) mg/dL Est GFR (CKD-EPI)AfAm >90 (>60 ml/min/1.73 sqM) Est GFR (CKD-EPI)NonAf >90 (>60 ml/min/1.73 sqM) Glucose 93 (74-99) mg/dL Calcium 9.0 (8.4-10.2) mg/dL Total Bilirubin 0.2 (0.2-1.3) mg/dL AST 25 (14-36) U/L ALT 13 (4-34) U/L Alkaline Phosphatase 83 (38-126) U/L Total Protein 6.5 (6.3-8.2) g/dL Albumin 4.0 (3.5-5.0) g/dL Lipase 543 H (23-300) U/L Urine HCG, Qual Not Detected (Not Detectd) Salicylates 1.9 mg/dL Urine Opiates Screen (NotDetected) Ur Oxycodone Screen (NotDetected) Urine Methadone Screen (NotDetected) Acetaminophen <10.0 ug/mL Ur Barbiturates Screen (NotDetected) U Tricyclic Antidepress (NotDetected) Ur Phencyclidine Scrn (NotDetected) Ur Amphetamines Screen (NotDetected) U Methamphetamines Scrn (NotDetected) U Benzodiazepines Scrn (NotDetected) Urine Cocaine Screen (NotDetected) U Marijuana (THC) Screen (NotDetected) Serum Alcohol <10 mg/dL 12/01/24 Range/Units 15:16 WBC (3.8-10.6) k/uL RBC (3.80-5.40) m/uL Hgb (11.4-16.0) gm/dL Hct (34.0-46.0) % MCV (80.0-100.0) fL MCH (25.0-35.0) pg MCHC (31.0-37.0) g/dL RDW (11.5-15.5) % Plt Count (150-450) k/uL MPV Neutrophils % % Lymphocytes % % Monocytes % % Eosinophils % % Basophils % % Neutrophils # (1.3-7.7) k/uL Lymphocytes # (1.0-4.8) k/uL Monocytes # (0-1.0) k/uL Eosinophils # (0-0.7) k/uL Basophils # (0-0.2) k/uL Hypochromasia Sodium (137-145) mmol/L Potassium (3.5-5.1) mmol/L Chloride (98-107) mmol/L Carbon Dioxide (22-30) mmol/L Anion Gap mmol/L BUN (7-17) mg/dL Creatinine (0.52-1.04) mg/dL Est GFR (CKD-EPI)AfAm (>60 ml/min/1.73 sqM) Est GFR (CKD-EPI)NonAf (>60 ml/min/1.73 sqM) Glucose (74-99) mg/dL Calcium (8.4-10.2) mg/dL Total Bilirubin (0.2-1.3) mg/dL AST (14-36) U/L ALT (4-34) U/L Alkaline Phosphatase (38-126) U/L Total Protein (6.3-8.2) g/dL Albumin (3.5-5.0) g/dL Lipase (23-300) U/L Urine HCG, Qual (Not Detectd) Salicylates mg/dL Urine Opiates Screen Not Detected (NotDetected) Ur Oxycodone Screen Not Detected (NotDetected) Urine Methadone Screen Not Detected (NotDetected) Acetaminophen ug/mL Ur Barbiturates Screen Not Detected (NotDetected) U Tricyclic Antidepress Detected H (NotDetected) Ur Phencyclidine Scrn Not Detected (NotDetected) Ur Amphetamines Screen Not Detected (NotDetected) U Methamphetamines Scrn Not Detected (NotDetected) U Benzodiazepines Scrn Detected H (NotDetected) Urine Cocaine Screen Not Detected (NotDetected) U Marijuana (THC) Screen Detected H (NotDetected) Serum Alcohol mg/dL Disposition <Aamir Adams - Last Filed: 12/01/24 13:26> Is patient prescribed a controlled substance at d/c from ED?: No Time of Disposition: 16:22 <Tank Saldaña - Last Filed: 12/01/24 16:22> Clinical Impression: Encounter for psychiatric assessment Disposition: HOME SELF-CARE Condition: Good Additional Instructions: Follow safety plan Referrals: Amilcar Taylor MD [Primary Care Provider] - 1-2 days
[2024-12-01 12:34] VITALS: RESP 16
[2024-12-01 12:56] LABS: Basophils % (A) 0 %; Eosinophils # (A) 0.1 k/uL (0-0.7); Eosinophils % (A) 1 %; HCT 32.9 % (34.0-46.0); HGB 10.5 gm/dL (11.4-16.0); Hypochromasia Moderate; Lymphocytes # (A) 1.4 k/uL (1.0-4.8); Lymphocytes % (A) 29 %; MCH 26.7 pg (25.0-35.0); MCV 83.5 fL (80.0-100.0); Monocytes # (A) 0.2 k/uL (0-1.0); Monocytes % (A) 5 %; Neutrophils # (A) 2.9 k/uL (1.3-7.7); Neutrophils % (A) 63 %; Platelet Count 229 k/uL (150-450); RBC 3.94 m/uL (3.80-5.40); RDW 15.7 % (11.5-15.5); WBC 4.7 k/uL (3.8-10.6)
[2024-12-01 13:17] LABS: ALT 13 U/L (4-34); AST 25 U/L (14-36); Acetaminophen <10.0 ug/mL; African American GFR (CKD) >90 (>60 ml/min/1.73 sqM); Alcohol <10 mg/dL; Alkaline Phosphatase 83 U/L (38-126); Anion Gap 5 mmol/L; Blood Urea Nitrogen 14 mg/dL (7-17); Carbon Dioxide 26 mmol/L (22-30); Chloride 104 mmol/L (98-107); Glucose 93 mg/dL (74-99); Lipase 543 U/L (23-300); Non-African American GFR(CKD) >90 (>60 ml/min/1.73 sqM); Potassium 4.3 mmol/L (3.5-5.1); Salicylate 1.9 mg/dL; Sodium 135 mmol/L (137-145); Total Bilirubin 0.2 mg/dL (0.2-1.3); Total Protein 6.5 g/dL (6.3-8.2)
[2024-12-01] MEDS: SODIUM CHLORIDE 0.9% 1,000 ML IV STA (15:02)
[2024-12-01 15:54] LABS: Amphetamine Screen,Urine Not Detected (NotDetected); Barbiturate Screen,Urine Not Detected (NotDetected); Benzodiazepines Screen,Urine Detected (NotDetected); Cocaine Screen,Urine Not Detected (NotDetected); Methadone Screen, Urine Not Detected (NotDetected); Opiate Screen,Urine Not Detected (NotDetected); Oxycodone Screen, Urine Not Detected (NotDetected); Phencyclidine Screen,Urine Not Detected (NotDetected); Tricyclic Antidepressant,Urine Detected (NotDetected); Urn Cannabinoid Scrn Detected (NotDetected)
[2024-12-01 16:36] VITALS: TEMP 98.5
[2024-12-01 16:40] VITALS: BP 105/70; PULSE 86
== END 2024-12-01 16:49 | disposition home or self-care (01) ==
LOC: EC 11:23
DX: Z13.30 Encounter for screening examination for mental health and behavioral disorders, unspecified (principal); F17.290 Nicotine dependence, other tobacco product, uncomplicated; Z91.048 Other nonmedicinal substance allergy status; Z88.2 Allergy status to sulfonamides; Z91.018 Allergy to other foods; Z88.8 Allergy status to other drugs, medicaments and biological substances
CPT/HCPCS: 82075; 36415; 93005; 80053; 83690; 85025; 81025; 80306; 80143; 80179; 99284; 96360; G0480; 80320

== ENCOUNTER 2024-12-03 11:02 | Emergency (ER) | payer OTHER ==
--- NOTE | 2024-12-03 11:44 | ED ---
Psych HPI - General Chief Complaint: Psychiatric Symptoms Stated Complaint: Mental health Time Seen by Provider: 12/03/24 11:40 Source: patient, RN notes reviewed Mode of arrival: ambulatory - History of Present Illness Initial Comments: 39-year-old female presenting for mental health evaluation. States she was found in her car by police prior to arrival who brought her to the ER for mental health evaluation. Patient is very tearful on exam and asked explains that she has been having suicidal ideations intermittently mostly because she missed her appointment to see her son. States she does not believe her medications are working and her [facility] appointment is not until December 16. When asked why she was in her car this morning, states she blacked out and cannot remember why. She states she cannot remember if she took any pills. She was seen in the ER 2 days ago for overuse of benzodiazepines and THC and underwent mental health evaluation who determined she did not meet inpatient criteria for psychiatric care. - Related Data Home Medications Medication Instructions Recorded Confirmed Latanoprost [Latanoprost 0.005%] 1 drop BOTH EYES HS 12/01/24 12/03/24 Ondansetron [Zofran] 4 mg PO BID PRN 12/01/24 12/03/24 QUEtiapine [SEROquel] 200 mg PO HS 12/01/24 12/03/24 hydrOXYzine pamoate [Vistaril] 50 mg PO TID 12/01/24 12/03/24 lamoTRIgine [LaMICtal] 50 mg PO DAILY 12/01/24 12/03/24 Previous Rx's Medication Instructions Recorded Dicyclomine [Bentyl] 20 mg PO BID 30 Days #60 tab 11/29/22 Venlafaxine HCl ER [Effexor XR] 150 mg PO DAILY 30 Days #30 cap 11/29/22 cloNIDine HCL 0.1 mg PO BID 30 Days #60 tab 11/29/22 levETIRAcetam [Keppra] 500 mg PO Q12H 30 Days #60 tab 11/29/22 Allergies Allergy/AdvReac Type Severity Reaction Status Date / Time adhesive Allergy Rash, Verified 12/03/24 11:45 PEELS SKIN OFF AND BLEEDS Sulfa (Sulfonamide Allergy Anaphylaxis Verified 12/03/24 11:45 Antibiotics) aripiprazole [From Abilify] AdvReac SUICIDAL Verified 12/03/24 11:45 THOUGHTS, CUT HERSELF divalproex sodium AdvReac Hallucinati Verified 12/03/24 11:45 [From Depakote] ons risperidone [From Risperdal] AdvReac Hallucinati Verified 12/03/24 11:45 ons meat Allergy Anaphylaxis Uncoded 12/03/24 11:16 Review of Systems ROS Statement: Those systems with pertinent positive or pertinent negative responses have been documented in the HPI. ROS Other: All systems not noted in ROS Statement are negative. Past Medical History Past Medical History: Asthma, Eye Disorder, Fibromyalgia, GERD/Reflux, GI Bleed, Seizure Disorder, Skin Disorder Additional Past Medical History / Comment(s): HX VOMITING BLOOD. PSYCHOSOMATIC SEIZURE DISORDER, OCCASIONAL EPISODES OF INCREASED HR & BLOOD PRESSURE - Paroxymal Tachycardia, R/T ANXIETY. HX OCULAR STROKE LEFTT EYE, WITH DECREASED VISION, migraines, bilateral glaucoma. History of Any Multi-Drug Resistant Organisms: None Reported Past Surgical History: Orthopedic Surgery Additional Past Surgical History / Comment(s): RECONSTRUCTION LT SHOULDER X3. Past Anesthesia/Blood Transfusion Reactions: No Reported Reaction, Motion Sickness Past Psychological History: ADD/ADHD, Anxiety, Depression, PTSD Smoking Status: Vaper Past Alcohol Use History: Occasional Past Drug Use History: None Reported - Past Family History Mother Family Medical History: Asthma, Congestive Heart Failure (CHF), COPD, GERD/Reflux, Pulmonary Embolus Additional Family Medical History / Comment(s): PTSD, depression. General Exam General appearance: alert, other (Patient is very tearful on examination and slow to respond to verbal questioning) Head exam: Present: atraumatic, normocephalic, normal inspection Eye exam: Present: normal appearance, PERRL, EOMI. Absent: scleral icterus, conjunctival injection, periorbital swelling Respiratory exam: Present: normal lung sounds bilaterally. Absent: respiratory distress, wheezes, rales, rhonchi, stridor Cardiovascular Exam: Present: regular rate, normal rhythm, normal heart sounds. Absent: systolic murmur, diastolic murmur, rubs, gallop, clicks Neurological exam: Present: alert, oriented X3 Psychiatric exam: Present: normal affect, flat affect, suicidal ideation. Absent: homicidal ideation Skin exam: Present: warm, dry, intact, normal color. Absent: rash Course Vital Signs 12/03/24 12/03/24 11:09 17:07 Temperature 98.3 F 98.4 F Pulse Rate 89 75 Respiratory 18 20 Rate Blood Pressure 116/76 109/71 O2 Sat by Pulse 98 100 Oximetry Medical Decision Making - Medical Decision Making Was pt. sent in by a medical professional or institution (, PA, SCALES INSPECTOR, urgent care, hospital, or fpc...) When possible be specific @ -No Did you speak to anyone other than the patient for history (EMS, parent, family, police, friend...)? What history was obtained from this source @ -No Did you review nursing and triage notes (agree or disagree)? Why? @ -I reviewed and agree with nursing and triage notes Were old charts reviewed (outside hosp., previous admission, EMS record, old EKG, old radiological studies, urgent care reports/EKG's, fpc records)? Report findings @ -No old charts were reviewed Differential Diagnosis (chest pain, altered mental status, abdominal pain women, abdominal pain men, vaginal bleeding, weakness, fever, dyspnea, syncope, headache, dizziness, GI bleed, back pain, seizure, CVA, palpatations, mental health, musculoskeletal)? @ -Differential Mental Health Depression, anxiety, bipolar, psychosis, schizophrenia, borderline personality, situational depression, adjustment disorder, behavioral disorder, brain tumor, malingering, substance abuse, encephalopathy, medication reaction, dementia, hypothyroidism, degenerative neurologic disorder, lupus.... This is not meant to be all-inclusive list EKG interpreted by me (3pts min.). @ -As above X-rays interpreted by me (1pt min.). @ -None done CT interpreted by me (1pt min.). @ -None done U/S interpreted by me (1pt. min.). @ -None done What testing was considered but not performed or refused? (CT, X-rays, U/S, labs)? Why? @ -None What meds were considered but not given or refused? Why? @ -None Did you discuss the management of the patient with other professionals (professionals i.e. , PA, SCALES INSPECTOR, lab, RT, psych nurse, social worker psychiatric, environmental lawyer, teacher, gift officer, case specialist)? Give summary @ -I spoke with EPS who recommends discharge with safety plan Was smoking cessation discussed for >3mins.? @ -No Was critical care preformed (if so, how long)? @ -No Were there social determinants of health that impacted care today? How? (Homelessness, low income, unemployed, alcoholism, drug addiction, transportation, low edu. Level, literacy, decrease access to med. care, half-way, rehab)? @ -No Was there de-escalation of care discussed even if they declined (Discuss DNR or withdrawal of care, Hospice)? DNR status @ -No What co-morbidities impacted this encounter? (DM, HTN, Smoking, COPD, CAD, Cancer, CVA, ARF, Chemo, Hep., AIDS, mental health diagnosis, sleep apnea, morbid obesity)? @ -None Was patient admitted / discharged? Hospital course, mention meds given and route, prescriptions, significant lab abnormalities, going to OR and other pertinent info. @ - discharge. 39-year-old female presenting for mental health evaluation. Patient was found in her car by police and states she cannot remember why she blacked out. States it is possible she may have taken pills But she does not remember. Vital signs within acceptable limits. Lab work unremarkable. Salicylic, acetaminophen, and alcohol level undetectable. Urine drug screen is positive for marijuana, benzodiazepine, and tricyclic antidepressants. Patient is medically cleared at this time to be seen by EPS. I spoke with EPS who recommends discharge with safety plan. I agree with this plan. Case was discussed with my ED attending Dr. Saldaña. Undiagnosed new problem with uncertain prognosis? @ -No Drug Therapy requiring intensive monitoring for toxicity (Heparin, Nitro, Insulin, Cardizem)? @ -No Were any procedures done? @ -No Diagnosis/symptom? @ -Encounter for psychiatric evaluation Acute, or Chronic, or Acute on Chronic? @ -Acute Uncomplicated (without systemic symptoms) or Complicated (systemic symptoms)? @ -Uncomplicated Side effects of treatment? @ -No Exacerbation, Progression, or Severe Exacerbation? @ -No Poses a threat to life or bodily function? How? (Chest pain, [place], [place], pneumonia, PE, COPD, DKA, ARF, appy, cholecystitis, CVA, Diverticulitis, Homicidal, Suicidal, threat to staff... and all critical care pts) @ -Unlikely at this time - Lab Data Result diagrams: 12/03/24 11:49 12/03/24 11:49 Lab Results 12/03/24 12/03/24 12/03/24 Range/Units 11:49 11:49 11:49 WBC 6.7 (3.8-10.6) k/uL RBC 3.92 (3.80-5.40) m/uL Hgb 10.4 L (11.4-16.0) gm/dL Hct 32.8 L (34.0-46.0) % MCV 83.7 (80.0-100.0) fL MCH 26.6 (25.0-35.0) pg MCHC 31.8 (31.0-37.0) g/dL RDW 15.5 (11.5-15.5) % Plt Count 245 (150-450) k/uL MPV 7.3 Neutrophils % 65 % Lymphocytes % 28 % Monocytes % 5 % Eosinophils % 1 % Basophils % 0 % Neutrophils # 4.3 (1.3-7.7) k/uL Lymphocytes # 1.9 (1.0-4.8) k/uL Monocytes # 0.3 (0-1.0) k/uL Eosinophils # 0.1 (0-0.7) k/uL Basophils # 0.0 (0-0.2) k/uL Hypochromasia Moderate Sodium 137 (137-145) mmol/L Potassium 4.3 (3.5-5.1) mmol/L Chloride 106 (98-107) mmol/L Carbon Dioxide 27 (22-30) mmol/L Anion Gap 4 mmol/L BUN 12 (7-17) mg/dL Creatinine 0.78 (0.52-1.04) mg/dL Est GFR (CKD-EPI)AfAm >90 (>60 ml/min/1.73 sqM) Est GFR (CKD-EPI)NonAf >90 (>60 ml/min/1.73 sqM) Glucose 87 (74-99) mg/dL Calcium 9.0 (8.4-10.2) mg/dL Total Bilirubin 0.4 (0.2-1.3) mg/dL AST 20 (14-36) U/L ALT 14 (4-34) U/L Alkaline Phosphatase 56 (38-126) U/L Total Protein 6.3 (6.3-8.2) g/dL Albumin 3.9 (3.5-5.0) g/dL Salicylates <1.0 mg/dL Urine Opiates Screen Not Detected (NotDetected) Ur Oxycodone Screen Not Detected (NotDetected) Urine Methadone Screen Not Detected (NotDetected) Acetaminophen <10.0 ug/mL Ur Barbiturates Screen Not Detected (NotDetected) U Tricyclic Antidepress Detected H (NotDetected) Ur Phencyclidine Scrn Not Detected (NotDetected) Ur Amphetamines Screen Not Detected (NotDetected) U Methamphetamines Scrn Not Detected (NotDetected) U Benzodiazepines Scrn Detected H (NotDetected) Urine Cocaine Screen Not Detected (NotDetected) U Marijuana (THC) Screen Detected H (NotDetected) Serum Alcohol <10 mg/dL - EKG Data -: EKG Interpreted by Me EKG Comments: EKG reveals normal sinus rhythm with no ST changes. Ventricular rate 74 bpm, PA interval 121, QRS duration 93, QT/QTc 390/418 Disposition Clinical Impression: Mental health problem Disposition: HOME SELF-CARE Condition: Stable Additional Instructions: Please return to the Emergency Department if symptoms worsen or any other concerns. Is patient prescribed a controlled substance at d/c from ED?: No Referrals: Amilcar Taylor MD [Primary Care Provider] - 1-2 days Time of Disposition: 17:00
[2024-12-03 12:14] LABS: Basophils % (A) 0 %; Eosinophils # (A) 0.1 k/uL (0-0.7); Eosinophils % (A) 1 %; HCT 32.8 % (34.0-46.0); HGB 10.4 gm/dL (11.4-16.0); Hypochromasia Moderate; Lymphocytes # (A) 1.9 k/uL (1.0-4.8); Lymphocytes % (A) 28 %; MCH 26.6 pg (25.0-35.0); MCHC 31.8 g/dL (31.0-37.0); MCV 83.7 fL (80.0-100.0); Mean Platelet Volume 7.3; Monocytes # (A) 0.3 k/uL (0-1.0); Monocytes % (A) 5 %; Neutrophils # (A) 4.3 k/uL (1.3-7.7); Neutrophils % (A) 65 %; Platelet Count 245 k/uL (150-450); RBC 3.92 m/uL (3.80-5.40); RDW 15.5 % (11.5-15.5); WBC 6.7 k/uL (3.8-10.6)
[2024-12-03 12:19] LABS: ALT 14 U/L (4-34); AST 20 U/L (14-36); Acetaminophen <10.0 ug/mL; African American GFR (CKD) >90 (>60 ml/min/1.73 sqM); Albumin 3.9 g/dL (3.5-5.0); Alcohol <10 mg/dL; Alkaline Phosphatase 56 U/L (38-126); Anion Gap 4 mmol/L; Blood Urea Nitrogen 12 mg/dL (7-17); Carbon Dioxide 27 mmol/L (22-30); Chloride 106 mmol/L (98-107); Glucose 87 mg/dL (74-99); Non-African American GFR(CKD) >90 (>60 ml/min/1.73 sqM); Potassium 4.3 mmol/L (3.5-5.1); Salicylate <1.0 mg/dL; Sodium 137 mmol/L (137-145); Total Bilirubin 0.4 mg/dL (0.2-1.3); Total Protein 6.3 g/dL (6.3-8.2)
[2024-12-03 12:31] LABS: Amphetamine Screen,Urine Not Detected (NotDetected); Barbiturate Screen,Urine Not Detected (NotDetected); Benzodiazepines Screen,Urine Detected (NotDetected); Cocaine Screen,Urine Not Detected (NotDetected); Methadone Screen, Urine Not Detected (NotDetected); Opiate Screen,Urine Not Detected (NotDetected); Oxycodone Screen, Urine Not Detected (NotDetected); Phencyclidine Screen,Urine Not Detected (NotDetected); Tricyclic Antidepressant,Urine Detected (NotDetected); Urn Cannabinoid Scrn Detected (NotDetected)
[2024-12-03 17:08] VITALS: BP 109/71; PULSE 75; RESP 20; TEMP 98.4
== END 2024-12-03 17:08 | disposition home or self-care (01) ==
LOC: EC 11:02
DX: Z13.30 Encounter for screening examination for mental health and behavioral disorders, unspecified (principal); F17.290 Nicotine dependence, other tobacco product, uncomplicated; Z91.048 Other nonmedicinal substance allergy status; Z88.2 Allergy status to sulfonamides; Z91.018 Allergy to other foods; Z88.8 Allergy status to other drugs, medicaments and biological substances
CPT/HCPCS: 99285 ×2; 82075; 36415; 93005; 80053; 85025; 80306; 80143; 80179; G0480; 80320

== ENCOUNTER 2025-01-02 14:09 | Emergency (ER) | payer OTHER ==
[2025-01-02 14:28] VITALS: TEMP 97.7
[2025-01-02] MEDS: LORazepam 0.5 MG TAB PO STA (15:49)
[2025-01-02 16:07] LABS: Basophils # (A) 0.05 10*3/uL (0.00-0.10); Basophils % (A) 0.7 %; Eosinophils # (A) 0.02 10*3/uL (0.04-0.35); Eosinophils % (A) 0.3 %; HCT 34.5 % (37.2-46.3); HGB 11.2 g/dL (12.0-15.0); Lymphocytes # (A) 1.85 10*3/uL (0.90-5.00); Lymphocytes % (A) 27.6 %; MCH 26.9 pg (27.0-32.0); MCHC 32.5 g/dL (32.0-37.0); MCV 82.7 fL (80.0-97.0); Monocytes # (A) 0.36 10*3/uL (0.20-1.00); Monocytes % (A) 5.4 %; Neutrophils # (A) 4.41 10*3/uL (1.80-7.70); Neutrophils % (A) 65.9 %; Platelet Count 261 10*3/uL (140-440); RBC 4.17 10*6/uL (4.10-5.20); RDW 14.9 % (11.5-14.5)
[2025-01-02 16:11] LABS: Appearance,Urine Clear (Clear); Bilirubin,Urine Negative (Negative); Blood,Urine Negative (Negative); Color,Urine Colorless; Glucose,Urine (UA) Negative (Negative); Ketones,Urine Negative (Negative); Leukocyte Esterase,Urine Negative (Negative); Nitrite,Urine Negative (Negative); PH, Urine 5.5 (5.0-8.0); Protein,Urine Negative (Negative); Specific Gravity,Urine 1.002 (1.001-1.035); Urobilinogen,Urine <2.0 mg/dL (<2.0)
[2025-01-02 16:25] LABS: Amphetamine Screen,Urine Not Detected (NotDetected); Barbiturate Screen,Urine Not Detected (NotDetected); Benzodiazepines Screen,Urine Detected (NotDetected); Cocaine Screen,Urine Not Detected (NotDetected); Methadone Screen, Urine Not Detected (NotDetected); Opiate Screen,Urine Not Detected (NotDetected); Oxycodone Screen, Urine Not Detected (NotDetected); Phencyclidine Screen,Urine Not Detected (NotDetected); Tricyclic Antidepressant,Urine Not Detected (NotDetected); Urn Cannabinoid Scrn Detected (NotDetected)
[2025-01-02 16:42] LABS: HCG,Qualitative Serum Not Detected
[2025-01-02 16:45] LABS: Acetaminophen <10.0 ug/mL; African American GFR (CKD) 83 (>60 ml/min/1.73 sqM); Anion Gap 11 mmol/L; Blood Urea Nitrogen 7 mg/dL (7-17); Calcium 9.4 mg/dL (8.4-10.2); Carbon Dioxide 24 mmol/L (22-30); Chloride 105 mmol/L (98-107); Glucose 81 mg/dL (74-99); Non-African American GFR(CKD) 72 (>60 ml/min/1.73 sqM); Potassium 3.5 mmol/L (3.5-5.1); Salicylate <1.0 mg/dL; Sodium 140 mmol/L (137-145)
[2025-01-02 17:19] LABS: Alcohol 97 mg/dL
[2025-01-02 18:56] VITALS: BP 103/67; PULSE 80; RESP 16
--- NOTE | 2025-01-02 20:39 | ED ---
General Adult HPI - General Chief complaint: Psychiatric Symptoms Stated complaint: petition Time Seen by Provider: 01/02/25 14:45 Source: patient, RN notes reviewed, old records reviewed Mode of arrival: ambulatory Limitations: no limitations - History of Present Illness Initial comments: Patient is a 39-year-old female presents emergency department complaining of suicidal ideations and alcohol use. States she has been having thoughts about her self. Does have a history of attempts. Denies any attempts tonight. States she was drinking today. Recently has been going through stressors as her son was taken from her and put in foster care. She denies any homicidal ideations, times, plans. Denies any hallucinations. Presents for further evaluation at this time. - Related Data Home Medications Medication Instructions Recorded Confirmed Latanoprost [Latanoprost 0.005%] 1 drop BOTH EYES HS 12/01/24 01/02/25 Ondansetron [Zofran] 4 mg PO BID PRN 12/01/24 01/02/25 hydrOXYzine pamoate [Vistaril] 50 mg PO TID 12/01/24 01/02/25 Fluticasone Nasal [place] [Flonase 1 spray EA NOSTRIL DAILY PRN 01/02/25 01/02/25 Nasal [place]] Ibuprofen [Motrin Ib] 400 mg PO Q6H PRN 01/02/25 01/02/25 Rimegepant Sulfate [Nurtec Odt] 75 mg PO DAILY PRN 01/02/25 01/02/25 Venlafaxine HCl [Effexor XR] 225 mg PO DAILY 01/02/25 01/02/25 lamoTRIgine [lamoTRIgine ER] 100 mg PO DAILY 01/02/25 01/02/25 traZODone HCL [Desyrel] 200 mg PO HS 01/02/25 01/02/25 Previous Rx's Medication Instructions Recorded Dicyclomine [Bentyl] 20 mg PO BID 30 Days #60 tab 11/29/22 cloNIDine HCL 0.1 mg PO BID 30 Days #60 tab 11/29/22 levETIRAcetam [Keppra] 500 mg PO Q12H 30 Days #60 tab 11/29/22 Allergies Allergy/AdvReac Type Severity Reaction Status Date / Time adhesive Allergy Rash, Verified 01/02/25 17:56 PEELS SKIN OFF AND BLEEDS Sulfa (Sulfonamide Allergy Anaphylaxis Verified 01/02/25 17:56 Antibiotics) aripiprazole [From Abilify] AdvReac SUICIDAL Verified 01/02/25 17:56 THOUGHTS, CUT HERSELF divalproex sodium AdvReac Hallucinati Verified 01/02/25 17:56 [From Depakote] ons risperidone [From Risperdal] AdvReac Hallucinati Verified 01/02/25 17:56 ons meat Allergy Anaphylaxis Uncoded 01/02/25 14:28 Review of Systems ROS Statement: Those systems with pertinent positive or pertinent negative responses have been documented in the HPI. Review of Systems: CONST: Denies fever EYES: Denies blurry vision ENT: Denies nasal congestion C/V: Denies Chest pain RESP: Denies shortness of breath GI: Denies abdominal pain : Denies dysuria SKIN: Denies rash. MSK: Denies joint pain. NEURO: Denies headache ROS Other: All systems not noted in ROS Statement are negative. Past Medical History Past Medical History: Asthma, Eye Disorder, Fibromyalgia, GERD/Reflux, GI Bleed, Seizure Disorder, Skin Disorder Additional Past Medical History / Comment(s): HX VOMITING BLOOD. PSYCHOSOMATIC SEIZURE DISORDER, OCCASIONAL EPISODES OF INCREASED HR & BLOOD PRESSURE - Paroxymal Tachycardia, R/T ANXIETY. HX OCULAR STROKE LEFTT EYE, WITH DECREASED VISION, migraines, bilateral glaucoma. History of Any Multi-Drug Resistant Organisms: None Reported Past Surgical History: Orthopedic Surgery Additional Past Surgical History / Comment(s): RECONSTRUCTION LT SHOULDER X3. Past Anesthesia/Blood Transfusion Reactions: No Reported Reaction, Motion Sickness Past Psychological History: ADD/ADHD, Anxiety, Depression, PTSD Smoking Status: Vaper Past Alcohol Use History: Occasional Past Drug Use History: None Reported - Past Family History Mother Family Medical History: Asthma, Congestive Heart Failure (CHF), COPD, GERD/Reflux, Pulmonary Embolus Additional Family Medical History / Comment(s): PTSD, depression. General Exam - General Exam Comments Initial Comments: General: Appears in no acute distress. HEAD: Normal with no signs of head trauma. EYES: PERRLA, EOMI, conjunctiva normal, no discharge. Pupils are 3 mm and equal bilaterally. ENT: Hearing grossly intact, normal oropharynx. RESPIRATORY: Clear breath sounds bilaterally. No wheezes, rales, or rhonchi. C/V: Regular rate and rhythm. S1 and S2 auscultated, peripheral pulses 2+ and intact throughout ABD: Abd is soft, nontender, nondistended EXT: Normal range of motion, no obvious deformity SKIN: No rashes or lesions observed on exposed skin. NEURO: Alert and oriented x 4. No focal deficits. Appears mildly intoxicated with alcohol. Limitations: no limitations Course Vital Signs 01/02/25 01/02/25 14:25 18:55 Temperature 97.7 F Pulse Rate 98 80 Respiratory 22 16 Rate Blood Pressure 111/79 103/67 O2 Sat by Pulse 99 99 Oximetry Medical Decision Making - Medical Decision Making Was pt. sent in by a medical professional or institution (, [facility], [facility], urgent care, hospital, or skilled nursing...) When possible be specific @ -No Did you speak to anyone other than the patient for history (EMS, parent, family, police, friend...)? What history was obtained from this source @ -Spoke with police who petition the patient Did you review nursing and triage notes (agree or disagree)? Why? @ -I reviewed and agree with nursing and triage notes Were old charts reviewed (outside hosp., previous admission, EMS record, old EKG, old radiological studies, urgent care reports/EKG's, skilled nursing records)? Report findings @ -No old charts were reviewed Differential Diagnosis (chest pain, altered mental status, abdominal pain women, abdominal pain men, vaginal bleeding, weakness, fever, dyspnea, syncope, headache, dizziness, GI bleed, back pain, seizure, CVA, palpatations, mental health, musculoskeletal)? @ -Differential mental health EKG interpreted by me (3pts min.). @ -As above X-rays interpreted by me (1pt min.). @ -None done CT interpreted by me (1pt min.). @ -None done U/S interpreted by me (1pt. min.). @ -None done What testing was considered but not performed or refused? (CT, X-rays, U/S, labs)? Why? @ -None What meds were considered but not given or refused? Why? @ -None Did you discuss the management of the patient with other professionals (professionals i.e. , [facility], [facility], lab, RT, psych nurse, rn social services, supervisor agricultural education, teacher, photographic intelligence officer, case management associate)? Give summary @ -EPS notified the consult. CORNELL Payne evaluated patient and after discussion with psychiatry cleared the patient for discharge home. Patient discharged with safety plan. Does not meet inpatient psychiatric criteria. Was smoking cessation discussed for >3mins.? @ -No Was critical care preformed (if so, how long)? @ -No Were there social determinants of health that impacted care today? How? (Homelessness, low income, unemployed, alcoholism, drug addiction, transportation, low edu. Level, literacy, decrease access to med. care, [facility], rehab)? @ -No Was there de-escalation of care discussed even if they declined (Discuss DNR or withdrawal of care, Hospice)? DNR status @ -No What co-morbidities impacted this encounter? (DM, HTN, Smoking, COPD, CAD, Cancer, CVA, ARF, Chemo, Hep., AIDS, mental health diagnosis, sleep apnea, morbid obesity)? @ -None Was patient admitted / discharged? Hospital course, mention meds given and route, prescriptions, significant lab abnormalities, going to OR and other pertinent info. @ -Presents mildly intact with alcohol with suicidal ideations. Petition by police. Vitals within acceptable limits. Will obtain basic labs as she does have a history of Tylenol toxicity. She was in agreement this plan. Given a dose of Ativan. She is mildly toxic with alcohol. BAT is slightly elevated. Vitals are within acceptable limits. EKG shows no signs of acute ischemia. Labs remarkable for an alcohol level of 97, as well as a positive UDS of benzos and marijuana. Remainder the workup unremarkable. At this time, patient is medically cleared for evaluation by psychiatry. Disposition pending psychiatric evaluation. EPS notified of the consult. EPS notified the consult. CORNELL Payne evaluated patient and after discussion with psychiatry cleared the patient for discharge home. Patient discharged with safety plan. Does not meet inpatient psychiatric criteria. Undiagnosed new problem with uncertain prognosis? @ -No Drug Therapy requiring intensive monitoring for toxicity (Heparin, Nitro, Insulin, Cardizem)? @ -No Were any procedures done? @ -No Diagnosis/symptom? @ -Encounter for psychiatric evaluation, suicidal ideation, alcohol intoxication. Acute, or Chronic, or Acute on Chronic? @ -Acute Uncomplicated (without systemic symptoms) or Complicated (systemic symptoms)? @ -Uncomplicated Side effects of treatment? @ -No Exacerbation, Progression, or Severe Exacerbation? @ -No Poses a threat to life or bodily function? How? (Chest pain, [place], [place], pneumonia, PE, COPD, DKA, ARF, appy, cholecystitis, CVA, Diverticulitis, Homicidal, Suicidal, threat to staff... and all critical care pts) @ -Unlikely at this time - Lab Data Result diagrams: 01/02/25 15:57 01/02/25 15:57 Lab Results 01/02/25 01/02/25 01/02/25 Range/Units 15:57 15:57 15:57 WBC 6.70 (4.50-10.00) 10*3/uL RBC 4.17 (4.10-5.20) 10*6/uL Hgb 11.2 L (12.0-15.0) g/dL Hct 34.5 L (37.2-46.3) % MCV 82.7 (80.0-97.0) fL MCH 26.9 L (27.0-32.0) pg MCHC 32.5 (32.0-37.0) g/dL Plt Count 261 (140-440) 10*3/uL MPV 10.0 (9.5-12.2) fL Immature Gran % (Auto) 0.1 % Neutrophils % 65.9 % Lymphocytes % 27.6 % Monocytes % 5.4 % Eosinophils % 0.3 % Basophils % 0.7 % Immature Gran # 0.01 (0.00-0.04) 10*3/uL Neutrophils # 4.41 (1.80-7.70) 10*3/uL Lymphocytes # 1.85 (0.90-5.00) 10*3/uL Monocytes # 0.36 (0.20-1.00) 10*3/uL Eosinophils # 0.02 L (0.04-0.35) 10*3/uL Basophils # 0.05 (0.00-0.10) 10*3/uL Sodium 140 (137-145) mmol/L Potassium 3.5 (3.5-5.1) mmol/L Chloride 105 (98-107) mmol/L Carbon Dioxide 24 (22-30) mmol/L Anion Gap 11 mmol/L BUN 7 (7-17) mg/dL Creatinine 1.00 (0.52-1.04) mg/dL Est GFR (CKD-EPI)AfAm 83 (>60 ml/min/1.73 sqM) Est GFR (CKD-EPI)NonAf 72 (>60 ml/min/1.73 sqM) Glucose 81 (74-99) mg/dL Calcium 9.4 (8.4-10.2) mg/dL HCG, Qual Not Detected Urine Color Colorless Urine Appearance Clear (Clear) Urine pH 5.5 (5.0-8.0) Ur Specific [place] 1.002 (1.001-1.035) Urine Protein Negative (Negative) Urine Glucose (UA) Negative (Negative) Urine Ketones Negative (Negative) Urine Blood Negative (Negative) Urine Nitrite Negative (Negative) Urine Bilirubin Negative (Negative) Urine Urobilinogen <2.0 (<2.0) mg/dL Ur Leukocyte Esterase Negative (Negative) Salicylates <1.0 mg/dL Urine Opiates Screen Not Detected (NotDetected) Ur Oxycodone Screen Not Detected (NotDetected) Urine Methadone Screen Not Detected (NotDetected) Acetaminophen <10.0 ug/mL Ur Barbiturates Screen Not Detected (NotDetected) U Tricyclic Antidepress Not Detected (NotDetected) Ur Phencyclidine Scrn Not Detected (NotDetected) Ur Amphetamines Screen Not Detected (NotDetected) U Methamphetamines Scrn Not Detected (NotDetected) U Benzodiazepines Scrn Detected H (NotDetected) Urine Cocaine Screen Not Detected (NotDetected) U Marijuana (THC) Screen Detected H (NotDetected) Serum Alcohol 97 mg/dL - EKG Data -: EKG Interpreted by Me EKG Comments: 12-lead Electrocardiogram Interpretation Note EKG was reviewed and interpreted by myself. 12-lead ECG performed at 1615 is interpreted by me as revealing normal sinus rhythm at a rate of 76 beats per minute. [place] is leftward deviated. MS interval is 116 ms, QRS durations 93 ms, QTc is 436 ms.. There were no ST or T wave abnormalities to suggest myocardial ischemia or injury. R wave progression across the precordium was satisfactory. By my interpretation this EKG is non-diagnostic for acute ischemia. Disposition Clinical Impression: Encounter for psychiatric assessment, Suicidal ideation, Alcohol intoxication Disposition: HOME SELF-CARE Condition: Good Additional Instructions: follow safety plan Is patient prescribed a controlled substance at d/c from ED?: No Referrals: Amilcar Taylor MD [Primary Care Provider] - 1-2 days Time of Disposition: 20:39
== END 2025-01-02 20:51 | disposition home or self-care (01) ==
LOC: EC 14:09
DX: Z00.8 Encounter for other general examination (principal); R45.851 Suicidal ideations; F10.129 Alcohol abuse with intoxication, unspecified; F17.290 Nicotine dependence, other tobacco product, uncomplicated; Z86.73 Personal history of transient ischemic attack (TIA), and cerebral infarction without residual deficits; Z88.1 Allergy status to other antibiotic agents; Z88.2 Allergy status to sulfonamides; Z88.8 Allergy status to other drugs, medicaments and biological substances; Z91.014 Allergy to mammalian meats; Y90.4 Blood alcohol level of 80-99 mg/100 ml
CPT/HCPCS: 82075; 36415; 93005; 80048; 85025; 81003; 84703; 80306; 80143; 80179; 99285; G0480; 80320

== ENCOUNTER 2025-03-18 01:59 | Emergency (ER) | payer OTHER ==
--- NOTE | 2025-03-18 02:38 | ED ---
Psych HPI - General Source: patient, EMS Mode of arrival: EMS <Cadence Maldonado - Last Filed: 03/18/25 09:58> <Charbel Fry - Last Filed: 03/18/25 11:22> - General Chief Complaint: Psychiatric Symptoms Stated Complaint: Mental Health Time Seen by Provider: 03/18/25 02:00 - History of Present Illness Initial Comments: 39-year-old female brought into the emergency department who was petitioned by police. Patient called them reporting suicidal ideations. When speaking with the patient she states she is very depressed about her living situation. The custody of her son was taken away from her. She has history of polysubstance abuse. Patient states that she wants to go to rehab. She reported to police that she took Xanax and [place] however states that these were previously prescribed to her. She denies intentionally harming herself. States to the nurse that she "does not want to be here anymore". She denies homicidal ideations. No concern for (Cadence Maldonado) - Related Data Home Medications Medication Instructions Recorded Confirmed Latanoprost [Latanoprost 0.005%] 1 drop BOTH EYES HS 12/01/24 03/18/25 Ondansetron [Zofran] 4 mg PO BID PRN 12/01/24 03/18/25 hydrOXYzine pamoate [Vistaril] 50 mg PO TID 12/01/24 03/18/25 Fluticasone Nasal [place] [Flonase 1 spray EA NOSTRIL DAILY PRN 01/02/25 03/18/25 Nasal [place]] Ibuprofen [Motrin Ib] 400 mg PO Q6H PRN 01/02/25 03/18/25 Rimegepant Sulfate [Nurtec Odt] 75 mg PO DAILY PRN 01/02/25 03/18/25 Venlafaxine HCl [Effexor XR] 225 mg PO DAILY 01/02/25 03/18/25 lamoTRIgine [lamoTRIgine ER] 100 mg PO DAILY 01/02/25 03/18/25 Loratadine [Claritin] 10 mg PO DAILY PRN 03/18/25 03/18/25 Nicotine 14Mg/24Hr Patch [Habitrol 1 patch TRANSDERM DAILY PRN 03/18/25 03/18/25 14Mg/24Hr Patch] QUEtiapine FUMARATE [SEROquel] 300 mg PO HS 03/18/25 03/18/25 Previous Rx's Medication Instructions Recorded Dicyclomine [Bentyl] 20 mg PO BID 30 Days #60 tab 11/29/22 cloNIDine HCL 0.1 mg PO BID 30 Days #60 tab 11/29/22 levETIRAcetam [Keppra] 500 mg PO Q12H 30 Days #60 tab 11/29/22 Allergies Allergy/AdvReac Type Severity Reaction Status Date / Time adhesive Allergy Rash, Verified 03/18/25 09:45 PEELS SKIN OFF AND BLEEDS Sulfa (Sulfonamide Allergy Anaphylaxis Verified 03/18/25 09:45 Antibiotics) aripiprazole [From Abilify] AdvReac SUICIDAL Verified 03/18/25 09:45 THOUGHTS, CUT HERSELF divalproex sodium AdvReac Hallucinati Verified 03/18/25 09:45 [From Depakote] ons risperidone [From Risperdal] AdvReac Hallucinati Verified 03/18/25 09:45 ons trazodone AdvReac Hallucinati Verified 03/18/25 09:48 ons meat Allergy Anaphylaxis Uncoded 03/18/25 09:45 Review of Systems ROS Other: All systems not noted in ROS Statement are negative. <Cadence Maldonado - Last Filed: 03/18/25 09:58> ROS Other: All systems not noted in ROS Statement are negative. <Charbel Fry - Last Filed: 03/18/25 11:22> ROS Statement: Those systems with pertinent positive or pertinent negative responses have been documented in the HPI. Past Medical History Past Medical History: Asthma, Eye Disorder, Fibromyalgia, GERD/Reflux, GI Bleed, Seizure Disorder, Skin Disorder Additional Past Medical History / Comment(s): HX VOMITING BLOOD. PSYCHOSOMATIC SEIZURE DISORDER, OCCASIONAL EPISODES OF INCREASED HR & BLOOD PRESSURE - Paroxymal Tachycardia, R/T ANXIETY. HX OCULAR STROKE LEFTT EYE, WITH DECREASED VISION, migraines, bilateral glaucoma. History of Any Multi-Drug Resistant Organisms: None Reported Past Surgical History: Orthopedic Surgery Additional Past Surgical History / Comment(s): RECONSTRUCTION LT SHOULDER X3. Past Anesthesia/Blood Transfusion Reactions: No Reported Reaction, Motion Sickness Past Psychological History: ADD/ADHD, Anxiety, Depression, PTSD Smoking Status: Vaper Past Alcohol Use History: Occasional Past Drug Use History: None Reported - Past Family History Mother Family Medical History: Asthma, Congestive Heart Failure (CHF), COPD, GERD/Reflux, Pulmonary Embolus Additional Family Medical History / Comment(s): PTSD, depression. <Cadence Maldonado - Last Filed: 03/18/25 09:58> General Exam General appearance: alert, in no apparent distress Head exam: Present: atraumatic, normocephalic, normal inspection Eye exam: Present: normal appearance, PERRL, EOMI. Absent: scleral icterus, conjunctival injection, periorbital swelling ENT exam: Present: normal exam, mucous membranes moist Neck exam: Present: normal inspection. Absent: tenderness, meningismus, lymphadenopathy Respiratory exam: Present: normal lung sounds bilaterally. Absent: respiratory distress, wheezes, rales, rhonchi, stridor Cardiovascular Exam: Present: regular rate, normal rhythm, normal heart sounds. Absent: systolic murmur, diastolic murmur, rubs, gallop, clicks GI/Abdominal exam: Present: soft, normal bowel sounds. Absent: distended, tenderness, guarding, rebound, rigid Extremities exam: Present: normal inspection, full ROM, normal capillary refill. Absent: tenderness, pedal edema, joint swelling, calf tenderness Back exam: Present: normal inspection Neurological exam: Present: alert, oriented X3, CN II-XII intact Psychiatric exam: Present: normal affect, normal mood Skin exam: Present: warm, dry, intact, normal color. Absent: rash <Cadence Maldonado - Last Filed: 03/18/25 09:58> Course Vital Signs 03/18/25 03/18/25 02:01 09:36 Temperature 97.0 F L 98.3 F Pulse Rate 77 83 Respiratory 16 20 Rate Blood Pressure 97/59 109/69 O2 Sat by Pulse 100 100 Oximetry Medical Decision Making <Cadence Maldonado - Last Filed: 03/18/25 09:58> <Charbel Fry - Last Filed: 03/18/25 11:22> - Medical Decision Making Was pt. sent in by a medical professional or institution (, PA, SNUFF BLENDER, urgent care, hospital, or long term...) When possible be specific @ -[No] Did you speak to anyone other than the patient for history (EMS, parent, family, police, friend...)? What history was obtained from this source @ -[No] Did you review nursing and triage notes (agree or disagree)? Why? @ -[I reviewed and agree with nursing and triage notes] Were old charts reviewed (outside hosp., previous admission, EMS record, old EKG, old radiological studies, urgent care reports/EKG's, long term records)? Report findings @ -[No old charts were reviewed] Differential Diagnosis (chest pain, altered mental status, abdominal pain women, abdominal pain men, vaginal bleeding, weakness, fever, dyspnea, syncope, headache, dizziness, GI bleed, back pain, seizure, CVA, palpatations, mental health, musculoskeletal)? @ -[not applicable] EKG interpreted by me (3pts min.). @ -[As above] X-rays interpreted by me (1pt min.). @ -[None done] CT interpreted by me (1pt min.). @ -[None done] U/S interpreted by me (1pt. min.). @ -[None done] What testing was considered but not performed or refused? (CT, X-rays, U/S, labs)? Why? @ -[None] What meds were considered but not given or refused? Why? @ -[None] Did you discuss the management of the patient with other professionals (professionals i.e. , PA, SNUFF BLENDER, lab, RT, psych nurse, addiction social worker, solution architect, teacher, ambulance officer, rn field case manager)? Give summary @ -[No] Was smoking cessation discussed for >3mins.? @ -[No] Was critical care preformed (if so, how long)? @ -[No] Were there social determinants of health that impacted care today? How? (Homelessness, low income, unemployed, alcoholism, drug addiction, transportation, low edu. Level, literacy, decrease access to med. care, senior care, rehab)? @ -[No] Was there de-escalation of care discussed even if they declined (Discuss DNR or withdrawal of care, Hospice)? DNR status @ -[No] What co-morbidities impacted this encounter? (DM, HTN, Smoking, COPD, CAD, Cancer, CVA, ARF, Chemo, Hep., AIDS, mental health diagnosis, sleep apnea, morbid obesity)? @ -[None] Was patient admitted / discharged? Hospital course, mention meds given and route, prescriptions, significant lab abnormalities, going to OR and other pertinent info. @ -[hospital course] Undiagnosed new problem with uncertain prognosis? @ -[No] Drug Therapy requiring intensive monitoring for toxicity (Heparin, Nitro, Insulin, Cardizem)? @ -[No] Were any procedures done? @ -[No] Diagnosis/symptom? @ -[default] Acute, or Chronic, or Acute on Chronic? @ -[default] Uncomplicated (without systemic symptoms) or Complicated (systemic symptoms)? @ -[default] Side effects of treatment? @ -[No] Exacerbation, Progression, or Severe Exacerbation? @ -[No] Poses a threat to life or bodily function? How? (Chest pain, [place], [place], pneumonia, PE, COPD, DKA, ARF, appy, cholecystitis, CVA, Diverticulitis, Homicidal, Suicidal, threat to staff... and all critical care pts) @ -[No] (Cadence Maldonado) Patient was signed out to me pending EPS evaluation. Patient followed by EPS. 11:21 AM notified by EPS that patient cleared for discharge with safety plan. (Charbel Fry) - Lab Data Lab Results 03/18/25 03/18/25 03/18/25 Range/Units 02:28 09:32 09:32 Urine Color Colorless Urine Appearance Clear (Clear) Urine pH 6.0 (5.0-8.0) Ur Specific [place] 1.014 (1.001-1.035) Urine Protein Negative (Negative) Urine Glucose (UA) Negative (Negative) Urine Ketones Negative (Negative) Urine Blood Negative (Negative) Urine Nitrite Negative (Negative) Urine Bilirubin Negative (Negative) Urine Urobilinogen <2.0 (<2.0) mg/dL Ur Leukocyte Esterase Negative (Negative) Urine HCG, Qual (Not Detectd) Urine Opiates Screen Detected H (NotDetected) Ur Oxycodone Screen Not Detected (NotDetected) Urine Methadone Screen Not Detected (NotDetected) Ur Barbiturates Screen Not Detected (NotDetected) U Tricyclic Antidepress Detected H (NotDetected) Ur Phencyclidine Scrn Not Detected (NotDetected) Ur Amphetamines Screen Not Detected (NotDetected) U Methamphetamines Scrn Not Detected (NotDetected) U Benzodiazepines Scrn Detected H (NotDetected) Urine Cocaine Screen Not Detected (NotDetected) U Marijuana (THC) Screen Detected H (NotDetected) Influenza Type A (PCR) Not Detected (Not Detectd) Influenza Type B (PCR) Not Detected (Not Detectd) RSV (PCR) Not Detected (Not Detectd) SARS-CoV-2 (PCR) Not Detected (Not Detectd) 03/18/25 Range/Units 09:32 Urine Color Urine Appearance (Clear) Urine pH (5.0-8.0) Ur Specific [place] (1.001-1.035) Urine Protein (Negative) Urine Glucose (UA) (Negative) Urine Ketones (Negative) Urine Blood (Negative) Urine Nitrite (Negative) Urine Bilirubin (Negative) Urine Urobilinogen (<2.0) mg/dL Ur Leukocyte Esterase (Negative) Urine HCG, Qual Not Detected (Not Detectd) Urine Opiates Screen (NotDetected) Ur Oxycodone Screen (NotDetected) Urine Methadone Screen (NotDetected) Ur Barbiturates Screen (NotDetected) U Tricyclic Antidepress (NotDetected) Ur Phencyclidine Scrn (NotDetected) Ur Amphetamines Screen (NotDetected) U Methamphetamines Scrn (NotDetected) U Benzodiazepines Scrn (NotDetected) Urine Cocaine Screen (NotDetected) U Marijuana (THC) Screen (NotDetected) Influenza Type A (PCR) (Not Detectd) Influenza Type B (PCR) (Not Detectd) RSV (PCR) (Not Detectd) SARS-CoV-2 (PCR) (Not Detectd) Disposition <Cadence Maldonado A - Last Filed: 03/18/25 09:58> Is patient prescribed a controlled substance at d/c from ED?: No Time of Disposition: 11:22 <Charbel Fry - Last Filed: 03/18/25 11:22> Clinical Impression: Depression Disposition: HOME SELF-CARE Condition: Stable Instructions (If sedation given, give patient instructions): Help Prevent Suicide (ED) Referrals: Amilcar Taylor MD [Primary Care Provider] - 1-2 days
[2025-03-18 03:34] LABS: RSV Not Detected (Not Detectd)
[2025-03-18 09:39] VITALS: RESP 20
[2025-03-18 09:48] LABS: Bilirubin,Urine Negative (Negative); Blood,Urine Negative (Negative); Color,Urine Colorless; Glucose,Urine (UA) Negative (Negative); Ketones,Urine Negative (Negative); Leukocyte Esterase,Urine Negative (Negative); Nitrite,Urine Negative (Negative); PH, Urine 6.0 (5.0-8.0); Protein,Urine Negative (Negative); Specific Gravity,Urine 1.014 (1.001-1.035); Urobilinogen,Urine <2.0 mg/dL (<2.0)
[2025-03-18 09:56] LABS: Phencyclidine Screen,Urine Not Detected (NotDetected); Urn Cannabinoid Scrn Detected (NotDetected)
[2025-03-18 09:57] LABS: Barbiturate Screen,Urine Not Detected (NotDetected); Benzodiazepines Screen,Urine Detected (NotDetected); Opiate Screen,Urine Detected (NotDetected); Oxycodone Screen, Urine Not Detected (NotDetected); Tricyclic Antidepressant,Urine Detected (NotDetected)
[2025-03-18 11:54] VITALS: BP 113/72; PULSE 81; TEMP 98.4
== END 2025-03-18 11:50 | disposition home or self-care (01) ==
LOC: EC 01:59
DX: F32.A Depression, unspecified (principal); F17.290 Nicotine dependence, other tobacco product, uncomplicated; Z88.2 Allergy status to sulfonamides; Z86.73 Personal history of transient ischemic attack (TIA), and cerebral infarction without residual deficits; Z88.8 Allergy status to other drugs, medicaments and biological substances; Z88.1 Allergy status to other antibiotic agents
CPT/HCPCS: 80306; 81003; 81025; 82075; 87636; 99285